=== PATIENT | male | born 1940 | race Hispanic/Latino ===

== ENCOUNTER 2018-09-12 10:45 | Inpatient (IN) | payer MEDICARE ==
[2018-09-12 11:11] VITALS: BMI 22.9
--- NOTE | 2018-09-12 12:08 | ED PDOC ---
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 Rodriguez and Dr. Ashley for possible admission for worsening dyspnea on exertion and port placement today. Patient informs onset of intermittent productive cough associated with shortness of breath since few days. Patient informs worsening symptoms with generalized weakness. Patient informs compliance with appropriate diet and denies any other associated somatic complaints. Patient denies any fevers, chills, headache, dizziness, chest pain, abdominal pain, nausea, vomiting, diarrhea, back pain, neck pain, or any other complaints. Patient is not on any chemotherapy currently. Patient informs officially being made aware of cancer today. PMD: Dr. Ashley Hematology: Dr. Rodriguez Environmental Consultant: Dr. Todd Time/Duration: < week Symptom Onset: Gradual Symptom Course: Unchanged Activities at Onset: Light Context: Other (Referred by Dr. Rodriguez and Dr. Ashley) Past Medical History - Provider Review Nursing Documentation Reviewed: Yes - Infectious Disease Hx of Infectious Diseases: None - Tetanus Immunization Tetanus Immunization: Unknown - Cardiac Hx Pacemaker: No - Pulmonary Hx Respiratory Disorders: No - Neurological Hx Neurological Disorder: No Hx Paralysis: No - HEENT Hx HEENT Disorder: No Hx Blind: No - Renal Hx Renal Disorder: No - Endocrine/Metabolic Hx Diabetes Mellitus Type 2: Yes - Hematological/Oncological Hx Blood Disorders: No Hx Blood Transfusions: No Hx Blood Transfusion Reaction: No - Integumentary Hx Dermatological Disorder: No - Musculoskeletal/Rheumatological Hx Falls: No - Gastrointestinal Hx Gastrointestinal Disorders: No - Genitourinary/Gynecological Hx Genitourinary Disorders: Yes (NEUROGENIC BLADDER,UROSEPSIS,CHRONIC URINARY RETENTION,BPH) Hx Reproductive Disorders: Yes (BPH) - Psychiatric Hx Psychophysiologic Disorder: No Hx Depression: No Hx Emotional Abuse: No Hx Physical Abuse: No Hx Substance Use: No - Surgical History Other/Comment: carotid endarterectomy - Anesthesia Hx Anesthesia: Yes Hx Anesthesia Reactions: No Hx Malignant Hyperthermia: No - Suicidal Assessment Feels Threatened In Home Enviroment: No Family/Social History - Physician Review Nursing Documentation Reviewed: Yes Family/Social History: Unknown Family HX Smoking Status: Former Smoker Hx Alcohol Use: Yes Hx Substance Use: No Hx Substance Use Treatment: No Allergies/Home Meds Allergies/Adverse Reactions: Allergies No Known Allergies Allergy (Verified 09/12/18 17:58) Review of Systems - Physician Review All systems were reviewed & negative as marked: Yes - Review of Systems Constitutional: absent: Fevers Respiratory: SOB, Cough Cardiovascular: CUEVA. absent: Chest Pain Gastrointestinal: absent: Abdominal Pain, Diarrhea, Nausea, Vomiting Genitourinary Male: absent: Dysuria, Urinary Output Changes Musculoskeletal: absent: Back Pain, Neck Pain Skin: absent: Rash Neurological: absent: Headache, Dizziness Physical Exam Vital Signs Reviewed: Yes Vital Signs Temp Pulse Resp BP Pulse Ox 09/12/18 11:20 97.9 F 99 H 20 154/92 H 100 09/12/18 11:11 97.7 F 100 H 16 154/92 H 99 Temperature: Afebrile Blood Pressure: Hypertensive Pulse: Regular Respiratory Rate: Normal Appearance: Positive for: Well-Appearing, Non-Toxic, Comfortable Pain Distress: None Mental Status: Positive for: Alert and Oriented X 3 - Systems Exam Head: Present: Atraumatic, Normocephalic Pupils: Present: PERRL Extroacular Muscles: Present: EOMI Conjunctiva: Present: Normal Mouth: Present: Dry Respiratory/Chest: Present: Good Air Exchange, Rales (in all lung hough bilaterally). No: Respiratory Distress, Accessory Muscle Use Cardiovascular: Present: Regular Rate and Rhythm, Normal S1, S2. No: Murmurs Abdomen: No: Tenderness, Distention, Peritoneal Signs Upper Extremity: Present: Normal Inspection. No: Cyanosis, Edema Lower Extremity: Present: Normal Inspection. No: Edema Neurological: Present: GCS=15, CN II-XII Intact, Speech Normal Skin: Present: Warm, Dry, Normal Color. No: Rashes Psychiatric: Present: Alert, Oriented x 3, Normal Insight, Normal Concentration Medical Decision Making ED Course and Treatment: 09/12/18 11:39 Impression: 77 year old male presents to the Emergency department for evaluation of cough and worsening dyspnea on exertion. Plan: -- VBG -- CT of Chest -- Labs -- Blood Culture -- EK -- Reassess and disposition Prior Visits: Notes and results from previous visits were reviewed. Progress Notes: 09/12/18 11:39 EKG: Ordered, reviewed, and independently interpreted the EKG. Rate : 104 BPM Rhythm : Sinus Tachycardia Interpretation : Normal interval, normal axis, no ST elevation, no acute ischemic changes. 09/12/18 13:38 Discussed case with hospitalist, Dr. Rainey, who is aware and agrees with Emergency department management plan, accepts patient under his service. 09/12/18 13:40 Family made aware of results and offered admission. Family and patient aware and agree with admission. - RAD Interpretation Radiology Orders: 09/12/18 11:39 CHEST W/O CONTRAST [CT] Stat - Scribe Statement The provider has reviewed the documentation as recorded by the Scribe Sara Munoz. All medical record entries made by the Scribe were at my direction and personally dictated by me. I have reviewed the chart and agree that the record accurately reflects my personal performance of the history, physical exam, medical decision making, and the department course for this patient. I have also personally directed, reviewed, and agree with the discharge instructions and disposition. Disposition/Present on Arrival - Present on Arrival Any Indicators Present on Arrival: No History of DVT/PE: No History of Uncontrolled Diabetes: No Urinary Catheter: No History of Decub. Ulcer: No History Surgical Site Infection Following: None - Disposition Have Diagnosis and Disposition been Completed?: Yes Diagnosis: Pleural effusion, Lung cancer metastatic to bone, Dyspnea, Thrombocytopenia, De hydration Disposition: HOSPITALIZED Disposition Time: 11:38 Patient Plan: Admission Condition: STABLE
[2018-09-12 12:29] LABS: VENOUS BLOOD PH 7.39 (7.32-7.43)
[2018-09-12 12:30] LABS: VENOUS BLOOD FIO2 21 %; VENOUS BLOOD GAS BASE EXCESS 0.2 mmol/L (0.0-2.0); VENOUS BLOOD GAS PO2 52 mm/Hg (30-55)
[2018-09-12 12:38] LABS: HEMOGLOBIN 14.9 g/dL (14.0-18.0); MEAN CELL VOLUME 91.5 fl (80.0-105.0); MEAN CORPUSCULAR HEMOGLOBIN 30.7 pg (25.0-35.0); MEAN CORPUSCULAR HGB CONC 33.6 g/dl (31.0-37.0); MEAN PLATELET VOLUME 10.3 fl (7.0-11.0); PLATELET COUNT 108 10^3/uL (120.0-450.0); RBC 4.85 10^6/uL (3.5-6.1); WHITE BLOOD COUNT 7.2 10^3/uL (4.5-11.0)
[2018-09-12 12:39] LABS: EOS % 0.1 % (1.5-5.0); GRAN # 6.49 (1.4-6.5); GRAN % 90.8 % (50.0-68.0); LYMPH # 0.3 (1.2-3.4); LYMPH % 4.2 % (22.0-35.0); MONO # 0.4 (0.1-0.6); MONO % 4.9 % (1.0-6.0)
[2018-09-12 12:56] LABS: BAND 1 % (0-2); LYMPHOCYTE 8 % (22.0-35.0); MONOCYTE 4 % (1.0-6.0); NEUTROPHIL 87 % (50.0-70.0)
[2018-09-12 12:57] LABS: PLATELET ESTIMATE LOW (NORMAL)
[2018-09-12 13:21] LABS: B-TYPE NATRIURETIC PEPTIDE 1010 pg/mL (0-450); BLOOD UREA NITROGEN 36 mg/dL (7-21); CALCIUM 9.2 mg/dL (8.4-10.5); GFR NON-AFRICAN AMERICAN > 60; TROPONIN I 0.02 ng/mL
--- NOTE | 2018-09-12 13:24 | CT ---
Date of service: 09/12/2018 PROCEDURE: CT Chest without contrast HISTORY: sob COMPARISON: None available. TECHNIQUE: Contiguous axial images were obtained through the chest without intravenous contrast enhancement. Sagittal and coronal reconstructions were performed. Radiation dose: Total exam DLP = 299.53 mGy-cm. This CT exam was performed using one or more of the following dose reduction techniques: Automated exposure control, adjustment of the mA and/or kV according to patient size, and/or use of iterative reconstruction technique. FINDINGS: LUNGS: There is an irregular spiculated mass or scar in the left lung apex measuring 2 x 3.5 cm. There are no prior CT scans for comparison. There is no abnormality in this region on a previous chest film from 03/22/2016. Further evaluation is recommended to rule out a lung malignancy. MEDIASTINUM: Unremarkable thoracic aorta. No aneurysm. Normal sized heart. Main pulmonary artery unremarkable. No vascular congestion. No lymphadenopathy. Aortic and coronary artery calcifications are seen. PLEURA: There is a small to moderate size left pleural effusion with a loculated appearance. There is a small pericardial effusion measuring 9 mm in thickness. BONES: There is a mild acute appearing compression fracture of the inferior endplate of T11 with some bony sclerosis. A metastatic lesion cannot be excluded. A Schmorl's node is seen in the superior endplate of L1. UPPER ABDOMEN: Grossly unremarkable. OTHER FINDINGS: None. IMPRESSION: There is an irregular spiculated mass or scar in the left lung apex measuring 2 x 3.5 cm. There are no prior CT scans for comparison. There is no abnormality in this region on a previous chest film from 03/22/2016. Further evaluation is recommended to rule out a lung malignancy.
[2018-09-12] MEDS ORDERED: Albuterol-Ipratrop 3 mg / 0.5 (3 ml) UD IH PRN (14:26)
--- NOTE | 2018-09-12 14:36 | CP.PCM.HP ---
History of Present Illness - History of Present Illness History of Present Illness: PGY1 Medicine History and Physical Exam Note for Dr. 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 Rodriguez and Dr. Ashley for worsening dyspnea on exertion. Patient informs onset of intermittent productive cough associated with shortness of breath since few days. Patient says it has been difficult for him to speak, however he is able to eat. Patient denies any pain to his back, limbs and/or head at this time. Patient denies any fevers, chills, headache, dizziness, chest pain, abdominal pain, nausea, vomiting, and/or diarrhea. Patient states he received his diagnosis of Lung CA about a week ago, which was confirmed with biopsy. Patient currently unaware of treatment plan, however Per Patient, his PMD recommends that he also gets a port placed. PMH: Lung CA with mets to lumbar spine, ribs, hips, History of diabetes (controlled without medications), PSH: left wrist repair with titanium alisson Social History: Heavy smoker > 25 pack year Allergies: NKDA PMD: Dr. Ashley Hematology: Dr. Rodriguez Streetcar Starter: Dr. Todd Present on Admission - Present on Admission Any Indicators Present on Admission: No History of DVT/PE: No History of Uncontrolled Diabetes: No Urinary Catheter: No Decubitus Ulcer Present: No History Surgical Site Infection Following: None Review of Systems - Review of Systems All systems: reviewed and no additional remarkable complaints except Review of Systems: ROS negative other than mentioned in HPI Past Patient History - Infectious Disease Hx of Infectious Diseases: None - Tetanus Immunizations Tetanus Immunization: Unknown - Past Social History Smoking Status: Former Smoker - CARDIAC Hx Pacemaker: No - PULMONARY Hx Respiratory Disorders: No - NEUROLOGICAL Hx Neurological Disorder: No Hx Paralysis: No - HEENT Hx HEENT Problems: No Hx Blind: No - RENAL Hx Chronic Kidney Disease: No - ENDOCRINE/METABOLIC Hx Diabetes Mellitus Type 2: Yes - HEMATOLOGICAL/ONCOLOGICAL Hx Blood Disorders: No Hx Blood Transfusions: No Hx Blood Transfusion Reaction: No - INTEGUMENTARY Hx Dermatological Problems: No - MUSCULOSKELETAL/RHEUMATOLOGICAL Hx Falls: No - GASTROINTESTINAL Hx Gastrointestinal Disorders: No - GENITOURINARY/GYNECOLOGICAL Hx Genitourinary Disorders: Yes (NEUROGENIC BLADDER,UROSEPSIS,CHRONIC URINARY RETENTION,BPH) Hx Reproductive Disorders: Yes (BPH) - PSYCHIATRIC Hx Psychophysiologic Disorder: No Hx Depression: No Hx Emotional Abuse: No Hx Physical Abuse: No Hx Substance Use: No - SURGICAL HISTORY Other/Comment: carotid endarterectomy - ANESTHESIA Hx Anesthesia: Yes Hx Anesthesia Reactions: No Hx Malignant Hyperthermia: No Meds Allergies/Adverse Reactions: Allergies Allergy/AdvReac Type Severity Reaction Status Date / Time No Known Allergies Allergy Verified 09/12/18 15:46 Physical Exam - Constitutional Appears: Non-toxic, No Acute Distress, Cachectic - Head Exam Head Exam: ATRAUMATIC, NORMAL INSPECTION, NORMOCEPHALIC - Eye Exam Eye Exam: EOMI, Normal appearance, PERRL Pupil Exam: NORMAL ACCOMODATION - ENT Exam ENT Exam: Mucous Membranes Moist, Normal Exam - Neck Exam Neck exam: Negative for: Lymphadenopathy, Thyromegaly Additional comments: Patient's left carotid is prominent on inspection - Respiratory Exam Respiratory Exam: Rales, Rhonchi. absent: Accessory Muscle Use, Wheezes, Respiratory Distress - Cardiovascular Exam Cardiovascular Exam: Tachycardia, REGULAR RHYTHM - GI/Abdominal Exam GI & Abdominal Exam: Normal Bowel Sounds, Soft. absent: Distended, Firm, Guarding, Mass, Tenderness - Extremities Exam Extremities exam: Positive for: full ROM, normal inspection. Negative for: calf tenderness, joint swelling, pedal edema, tenderness - Back Exam Back exam: NORMAL INSPECTION. absent: rash noted, tenderness - Neurological Exam Neurological exam: Alert, CN II-XII Intact, Oriented x3 - Psychiatric Exam Psychiatric exam: Normal Affect, Normal Mood - Skin Skin Exam: Dry, Intact, Normal Color, Warm Results - Vital Signs Recent Vital Signs: Last Vital Signs Temp 98 F 09/12/18 13:09 Pulse 99 H 09/12/18 13:09 Resp 18 09/12/18 13:09 BP 128/76 09/12/18 13:09 Pulse Ox 100 09/12/18 13:09 - Labs Result Diagrams: 09/12/18 12:00 09/12/18 12:00 Labs: Laboratory Results - last 24 hr 09/12/18 09/12/18 09/12/18 12:00 12:00 12:00 WBC 7.2 RBC 4.85 Hgb 14.9 Hct 44.4 MCV 91.5 MCH 30.7 MCHC 33.6 RDW 15.0 H Plt Count 108 L MPV 10.3 Gran % 90.8 H Lymph % (Auto) 4.2 L Pratt % (Auto) 4.9 Eos % (Auto) 0.1 L Baso % (Auto) 0.0 Gran # 6.49 Lymph # (Auto) 0.3 L Pratt # (Auto) 0.4 Eos # (Auto) 0.0 Baso # (Auto) 0.00 Neutrophils % (Manual) 87 H Band Neutrophils % 1 Lymphocytes % (Manual) 8 L Monocytes % (Manual) 4 Platelet Evaluation Low pO2 52 VBG pH 7.39 VBG pCO2 42.0 VBG HCO3 25.4 VBG Total CO2 26.7 VBG O2 Sat (Calc) 89.3 H VBG Base Excess 0.2 VBG Potassium 4.0 Sodium 138.0 140 Chloride 103.0 107 Glucose 139 H Lactate 2.7 H FiO2 21 Potassium 4.2 Carbon Dioxide 26 Anion Gap 11 BUN 36 H Creatinine 0.8 Est GFR ( Amer) > 60 Est GFR (Non-Af Amer) > 60 Random Glucose 138 H Calcium 9.2 Magnesium 2.1 Lactate Dehydrogenase 651 Total Creatine Kinase 34 L Troponin I 0.02 D NT-Pro-B Natriuret Pep 1010 H Venous Blood Potassium 4.0 Assessment & Plan - Assessment and Plan (Free Text) Assessment: 77 year old male with PMH significant for recently diagnosed lung CA with metastasis to the lumbar spine, presents to the Emergency department for evaluation of cough and worsening dyspnea on exertion. History of Lung CA with Metastases to Lumbar Spine, Hip, and Ribs - Dr. Rodriguez (Patient's Chief Hydroelectric Station Operator-Oncologist consulted); recommendations appreciated - Patient s/p Biopsy as an out-patient - Continue home medications: Lyrica, Percocet, Decadron - Dr. Escoto (IR) consulted for placement of port; recommendations appreciated Cough likely secondary to Pleural Effusion likely secondary to CAP vs COPD exacerbation - Azithromycin IVPB started daily - Rocephin IVPB started daily - Follow-up Blood cultures - CT Chest without contrast obtained 09/12/18 * There is an irregular spiculated mass or scar in the left lung apex measuring 2x3.5cm. There is no prior CT scan for comparison. There is no abnormalities in this region on a previous chest film from 03/22/2016; per official report. * There is a qmcod-rt-gsvaopqz size left pleural effusion with a loculated appearance. See official report * There is a small pericardial effusion measuring 9mm in thickness. See official report - Dr. Escoto (IR) consulted for chest tube placement; recommendations appreciated - Urine culture obtained - VBG revealed elevated lactic acid=2.7 - No leukocytosis - Afebrile - Gentle hydration: NS @ 75cc/hr - Start: mucinex LA - Start: mucomyst - Start: duonebs Q4H, and duonebs PRN Elevated BNP; rule-out CHF - BNP > 1000 - ECHO ordered - EKG: sinus tachycardia - CT Chest without contrast obtained 09/12/18 * There is an irregular spiculated mass or scar in the left lung apex measuring 2x3.5cm. There is no prior CT scan for comparison. There is no abnormalities in this region on a previous chest film from 03/22/2016; per official report. * There is a bpqix-jq-[id number] size left pleural effusion with a loculated appearance. See official report * There is a small pericardial effusion measuring 9mm in thickness. See official report PPx: - GI: pepcid - DVT: SCD (anticoagulation held due to possible procedure tomorrow morning) Patient seen and case discussed in detail with Dr. Brigid Irizarry PGY1
[2018-09-12] MEDS ORDERED: Sodium Chloride 0.9% 1,000 ML IV SCH (16:30)
[2018-09-12] MEDS: Albuterol-Ipratrop 3 mg / 0.5 (3 ml) UD IH SCH ×2 (16:31→20:58)
[2018-09-12] MEDS: cefTRIAXone 1 gm 1 GM/100 ML BAG IVPB SCH (16:39)
[2018-09-12 16:40] LABS: VENOUS BLOOD GAS BASE EXCESS 2.5 mmol/L (0.0-2.0); VENOUS BLOOD GAS PO2 54 mm/Hg (30-55)
[2018-09-12] MEDS: Azithromycin 500MG/NS 250ml 500 MG/250 ML BAG IVPB SCH (17:23)
[2018-09-12 17:32] LABS: URINE BILIRUBIN NEGATIVE (NEGATIVE); URINE BLOOD TRACE-INTACT (NEGATIVE); URINE GLUCOSE (UA) NEGATIVE (NEGATIVE); URINE LEUKOCYTE ESTERASE SMALL Leu/uL (NEGATIVE); URINE PROTEIN TRACE mg/dL (<30 mg/dL)
[2018-09-12 17:33] LABS: URINE APPEARANCE SL CLOUDY (CLEAR); URINE COLOR YELLOW (YELLOW)
[2018-09-12 17:37] LABS: URINE BACTERIA MOD (NEG); URINE RBC 0 - 2 /hpf (0-2)
[2018-09-12] MEDS: Acetylcysteine 20% Inhal Soln (4ml) IH SCH (17:51)
[2018-09-12] MEDS ORDERED: Pneumococcal 23-Valent Vaccine IM ONE (18:42)
[2018-09-12] MEDS ORDERED: Influenza Vaccine 60 mcg/0.5 mL SYR (4YR UP) IM ONE (18:42)
--- NOTE | 2018-09-12 18:45 | CARD ---
APPROVED REPORT Date of service: 09/12/2018 EKG Measurement Heart [id number] <Conclusion> Sinus tachycardia Septal infarct, age undetermined Abnormal ECG
[2018-09-12] MEDS: Oxycodone/Acetaminophen 5/325 mg Tab PO PRN (18:54)
[2018-09-12] MEDS: guaiFENesin 600 mg ER Tab PO SCH (18:54)
[2018-09-12] MEDS ORDERED: Albuterol-Ipratrop 3 mg / 0.5 (3 ml) UD IH SCH (20:00)
[2018-09-13] MEDS: Albuterol-Ipratrop 3 mg / 0.5 (3 ml) UD IH SCH ×6 (00:57→23:29)
[2018-09-13 06:26] LABS: GRAN # 4.75 (1.4-6.5); HEMOGLOBIN 13.8 g/dL (14.0-18.0); LYMPH # 0.2 (1.2-3.4); LYMPH % 4.3 % (22.0-35.0); MEAN CELL VOLUME 91.8 fl (80.0-105.0); MEAN CORPUSCULAR HEMOGLOBIN 30.6 pg (25.0-35.0); MEAN CORPUSCULAR HGB CONC 33.3 g/dl (31.0-37.0); MEAN PLATELET VOLUME 10.1 fl (7.0-11.0); MONO # 0.4 (0.1-0.6); MONO % 6.7 % (1.0-6.0); RBC 4.51 10^6/uL (3.5-6.1); RED CELL DISTRIBUTION WIDTH 14.6 % (11.5-14.5); WHITE BLOOD COUNT 5.3 10^3/uL (4.5-11.0)
[2018-09-13 06:35] LABS: INR 1.03; PROTHROMBIN TIME 11.9 SECONDS (9.4-12.5)
[2018-09-13 07:14] LABS: ALB/GLOB RATIO 1.1 (1.1-1.8); ALBUMIN 3.2 g/dL (3.0-4.8); ALT/SGPT 28 U/L (7-56); AST/SGOT 22 U/L (17-59); BLOOD UREA NITROGEN 27 mg/dL (7-21); CALCIUM 8.7 mg/dL (8.4-10.5); GFR NON-AFRICAN AMERICAN > 60
[2018-09-13] MEDS ORDERED: Lidocaine 2% Inj (20ml) ONE (07:25)
[2018-09-13] MEDS: Acetylcysteine 20% Inhal Soln (4ml) IH SCH ×3 (07:50→20:29)
--- NOTE | 2018-09-13 08:43 | PN ---
DATE: 09/12/2018 I reviewed the patient's chest CT. This demonstrates a left apical mass consistent with the patient's history for lung CA. There is linear extension toward the hilum. There is a small loculated-appearing left pleural effusion inferiorly and posteriorly. It is not enough to warrant therapeutic thoracentesis or tunneled catheter placement. I was made aware in the progress note that the patient should have a port placed. He will be scheduled on this admission Rc Escoto, MDDD: 09/12/2018 17:28:22 [email or web address]
[2018-09-13] MEDS ORDERED: Midazolam 2 MG/2 ML VIAL ONE ×2 (09:20→09:25)
[2018-09-13] MEDS ORDERED: DiphenhydrAMINE 50 mg/ml Inj ONE (09:26)
[2018-09-13] MEDS ORDERED: Flumazenil 0.1 mg/ml Inj (5ml) IVP ONE (09:40)
[2018-09-13] MEDS ORDERED: Sodium Chloride 0.45% 1,000 ML IV SCH (10:15)
[2018-09-13] MEDS: guaiFENesin 600 mg ER Tab PO SCH ×2 (11:20→19:41)
[2018-09-13] MEDS: Azithromycin 500MG/NS 250ml 500 MG/250 ML BAG IVPB SCH (11:25)
[2018-09-13] MEDS: cefTRIAXone 1 gm 1 GM/100 ML BAG IVPB SCH (12:59)
--- NOTE | 2018-09-13 15:43 | CP.PCM.PN ---
Subjective - Date & Time of Evaluation Date of Evaluation: 09/13/18 Time of Evaluation: 15:40 - Subjective Subjective: PGY1 Medicine Progress Note for Dr. Rainey Patient seen and evaluated at bedside this morning. No acute events overnight. Patient resting s/p Port placement with Dr. Escoto. Patient otherwise without complaints. 12 point ROS otherwise negative. Objective - Vital Signs/Intake and Output Vital Signs (last 24 hours): Temp Pulse Resp BP Pulse Ox 98.7 F 93 H 18 166/80 H 96 09/13/18 11:59 09/13/18 11:59 09/13/18 11:59 09/13/18 11:59 09/13/18 10:45 Intake and Output: 09/13/18 09/13/18 06:59 18:59 Intake Total 400 Balance 400 - Medications Medications: Current Medications Acetaminophen (Tylenol 325mg Tab) 650 mg PO Q4 PRN PRN Reason: Pain, Mild (1-3) Acetylcysteine (Acetylcysteine 20%) 3 ml IH BID [facility] Last Admin: 09/13/18 07:51 Dose: 3 ml Albuterol/Ipratropium (Duoneb 3 Mg/0.5 Mg (3 Ml) Ud) 3 ml IH Q2H PRN PRN Reason: Shortness of Breath Albuterol/Ipratropium (Duoneb 3 Mg/0.5 Mg (3 Ml) Ud) 3 ml IH [id number] [facility] Last Admin: 09/13/18 11:49 Dose: 3 ml Dexamethasone (Decadron) 4 mg PO QID [facility] Last Admin: 09/13/18 11:19 Dose: Not Given Enoxaparin Sodium (Lovenox) 30 mg SC DAILY [facility]; Protocol Famotidine (Pepcid) 40 mg PO HS [facility] Last Admin: 09/12/18 21:38 Dose: 40 mg Guaifenesin (Mucinex La) 600 mg PO BID [facility] Last Admin: 09/13/18 11:20 Dose: Not Given Ceftriaxone Sodium (Rocephin 1 Gram Ivpb) 1 gm in 100 mls @ 100 mls/hr IVPB DAILY [facility]; Protocol Last Admin: 09/13/18 12:59 Dose: 100 mls/hr Azithromycin (Zithromax 500mg In Ns) 500 mg in 250 mls @ 167 mls/hr IVPB DAILY [facility]; Protocol Last Admin: 09/13/18 11:25 Dose: 167 mls/hr Sodium Chloride (Sodium Chloride 0.9%) 1,000 mls @ 75 mls/hr IV .[id number] [facility] Stop: 09/13/18 16:31 Last Admin: 09/12/18 16:31 Dose: 75 mls/hr Ondansetron HCl (Zofran Inj) 4 mg IVP Q6H PRN PRN Reason: Nausea/Vomiting Oxycodone/Acetaminophen (Percocet 5/325 Mg Tab) 1 tab PO BID PRN PRN Reason: Pain, severe (8-10) Stop: 09/15/18 18:01 Last Admin: 09/12/18 18:54 Dose: 1 tab Pregabalin (Lyrica) 50 mg PO TID [facility] Last Admin: 09/13/18 11:20 Dose: Not Given - Labs Labs: 09/13/18 06:00 09/13/18 06:00 PT 11.9 SECONDS (9.4-12.5) 09/13/18 06:00 INR 1.03 09/13/18 06:00 - Additional Findings Additional findings: - Constitutional Appears: Non-toxic, No Acute Distress, Cachectic - Head Exam Head Exam: ATRAUMATIC, NORMAL INSPECTION, NORMOCEPHALIC - Eye Exam Eye Exam: EOMI, Normal appearance, PERRL Pupil Exam: NORMAL ACCOMODATION - ENT Exam ENT Exam: Mucous Membranes Moist, Normal Exam - Neck Exam Neck exam: Negative for: Lymphadenopathy, Thyromegaly Additional comments: Patient's left carotid is prominent on inspection - Respiratory Exam Respiratory Exam: Rales, Rhonchi. absent: Accessory Muscle Use, Wheezes, Respiratory Distress - Cardiovascular Exam Cardiovascular Exam: Tachycardia, REGULAR RHYTHM - GI/Abdominal Exam GI & Abdominal Exam: Normal Bowel Sounds, Soft. absent: Distended, Firm, Guarding, Mass, Tenderness - Extremities Exam Extremities exam: Positive for: full ROM, normal inspection. Negative for: calf tenderness, joint swelling, pedal edema, tenderness - Back Exam Back exam: NORMAL INSPECTION. absent: rash noted, tenderness - Neurological Exam Neurological exam: Alert, CN II-XII Intact, Oriented x3 - Psychiatric Exam Psychiatric exam: Normal Affect, Normal Mood - Skin Skin Exam: Dry, Intact, Normal Color, Warm Assessment and Plan - Assessment and Plan (Free Text) Assessment: 77 year old male with PMH significant for recently diagnosed lung CA with metast asis to the lumbar spine, presents to the Emergency department for evaluation of cough and worsening dyspnea on exertion. S/P Port placement by Dr. Escoto (IR) 09/13/18. Patient tolerated procedure well. History of Lung CA with Metastases to Lumbar Spine, Hip, and Ribs - Dr. Rodriguez (Patient's Mixed Livestock Farmer-Oncologist consulted); recommendations appreciated - Patient s/p Biopsy as an out-patient - Continue home medications: Lyrica, Percocet, Decadron - Dr. Escoto (IR) consulted for placement of port; recommendations appreciated - Patient s/p Port placement 09/13 Cough likely secondary to Pleural Effusion likely secondary to CAP vs COPD exacerbation - Azithromycin IVPB started daily - Rocephin IVPB started daily - Follow-up Blood cultures - CT Chest without contrast obtained 09/12/18 * There is an irregular spiculated mass or scar in the left lung apex measuring 2x3.5cm. There is no prior CT scan for comparison. There is no abnormalities in this region on a previous chest film from 03/22/2016; per official report. * There is a kiyln-gz-ydnlxtko size left pleural effusion with a loculated appearance. See official report * There is a small pericardial effusion measuring 9mm in thickness. See official report - Dr. Escoto (IR) consulted for chest tube placement; no chest tube placement warranted at this time - Urine culture obtained - VBG revealed elevated lactic acid=2.7 - No leukocytosis - Afebrile - Gentle hydration: NS @ 75cc/hr - Start: mucinex LA - Start: mucomyst - Start: duonebs Q4H, and duonebs PRN Elevated BNP; rule-out CHF - BNP > 1000 - ECHO ordered - EKG: sinus tachycardia - CT Chest without contrast obtained 09/12/18 * There is an irregular spiculated mass or scar in the left lung apex measuring 2x3.5cm. There is no prior CT scan for comparison. There is no abnormalities in this region on a previous chest film from 03/22/2016; per official report. * There is a blkmk-yj-mftzhcqu size left pleural effusion with a loculated appearance. See official report * There is a small pericardial effusion measuring 9mm in thickness. See official report PPx: - GI: pepcid - DVT: SCD (anticoagulation held due to possible procedure tomorrow morning) Patient seen and case discussed in detail with Dr. Brigid Irizarry PGY1
[2018-09-13] MEDS: Enoxaparin 30 mg Syringe SC SCH (17:23)
--- NOTE | 2018-09-13 18:45 | VASCULAR ---
PROCEDURE: Ultrasound and fluoroscopic right internal jugular venous access port. CLINICAL HISTORY: Lung carcinoma.Venous port for chemotherapy. PHYSICIAN(S): Rc Escoto M.D. TECHNIQUE: The relative risks and indications of the procedure were explained to the patient and consent obtained. The patient was placed supine on the arteriogram table and the right neck and chest prepped and draped in the usual sterile fashion. Conscious sedation monitoring was provided throughout the procedure by a nurse. Antibiotics were given prior to the procedure. Under direct ultrasound guidance, the right internal jugular vein was punctured with a micro-puncture set. A 0.035 angled Glidewire was advanced into the IVC. A 4 cm incision was made at the venous access site and the pocket blunted dissected. A 8 [place] single-lumen catheter, 25 cm long, was advanced to the SVC/RA junction. The catheter was trimmed and attached to the port. The port aspirates and injects easily. The port was placed in the pocket and closed in 2 layers. The patient tolerated the procedure well. IMPRESSION: Ultrasound and fluoroscopically placed right internal jugular venous access port.
--- NOTE | 2018-09-13 18:47 | CARD ---
APPROVED REPORT Date of service: 09/13/2018 EXAM: Two-dimensional and M-mode echocardiogram with Doppler and color Doppler. INDICATION PLEURAL EFFUSION 2D DIMENSIONS Left Atrium (2D)2.9 (1.6-4.0cm)IVSd1.6 (0.7-1.1cm) LVDd3.0 (3.9-5.9cm)LVOT Diameter1.8 (1.8-2.4cm) PWd1.4 (0.7-1.1cm)LVDs2.1 (2.5-4.0cm) FS (%) 32.6 %LVEF (%)62.4 (>50%) M-Mode DIMENSIONS Aortic Root1.30 (2.2-3.7cm)Aortic Cusp Exc.0.60 (1.5-2.0cm) Aortic Valve AoV Peak Tejguomr867.0cm/sAoV VTI53.8cmAO Peak GR.39mmHg LVOT Peak Ucunxjai65.7cm/sLVOT VTI20.90cmAO Mean GR.15mmHg JAYRO (VMAX)0.89af2QIE (VTI)0.99cm2 Mitral Valve MV E Ecvwubwz24.8cm/sMV A Gpkjrciq065.0cm/sE/A ratio0.6 TDI E/Lateral E'0.0E/Medial E'0.0 Tricuspid Valve TR Peak Zmdfmeby404lj/sRAP WCEYKLIR81yyKoVL Peak Gr.8mmHg [id number] LEFT VENTRICLE The left ventricle is normal size. There is moderate concentric left ventricular hypertrophy. The left ventricular function is normal.EF-60-65% There is normal LV segmental wall motion. Transmitral Doppler flow pattern is Grade III-reversible restrictive diastolic dysfunction. No left ventricle thrombus noted on this study. There is no ventricular septal defect visualized. There is no left ventricular aneurysm. There is no left ventricular aneurysm. There is no mass noted in the left ventricle. RIGHT VENTRICLE The right ventricle is normal size. There is normal right ventricular wall thickness. The right ventricular systolic function is normal. ATRIA The left atrium size is normal. The right atrium size is normal. The interatrial septum is intact with no evidence for an atrial septal defect. AORTIC VALVE The aortic valve is calcified and displays decreased opening. The aortic valve is not well visualized. There is trace aortic regurgitation. Popssible moderate to severe valvular aortic stenosis. There is no aortic valvular vegetation. MITRAL VALVE The mitral valve is thickened but opens well. Mitral regurgitation is trace. There is no mitral valve stenosis. There is no evidence of mitral valve prolapse. TRICUSPID VALVE The tricuspid valve leaflets are thickened , but open well. There is trace tricuspid regurgitation.RVSP-18 mmof Hg. There is no tricuspid valve stenosis. There is no tricuspid valve prolapse or vegetation. PULMONIC VALVE The pulmonic valve is not well visualized. There is no pulmonic valvular regurgitation. There is no pulmonic valvular stenosis. GREAT VESSELS The aortic root is normal in size. The ascending aorta is normal in size. The pulmonary artery is normal. The IVC was not visualized. PERICARDIAL EFFUSION There is small left pleural effusion. There is a trace pericardial effusion. <Conclusion> Normal chamber size. EF-60-65% There is trace aortic regurgitation. Popssible moderate to severe valvular aortic stenosis. Mitral regurgitation is trace. There is trace tricuspid regurgitation.RVSP-18 mmof Hg. The IVC was not visualized. There is a trace pericardial effusion. There is small left pleural effusion.
[2018-09-13] MEDS: Oxycodone/Acetaminophen 5/325 mg Tab PO PRN (20:51)
[2018-09-14] MEDS: Albuterol-Ipratrop 3 mg / 0.5 (3 ml) UD IH SCH ×6 (03:10→23:42)
[2018-09-14 06:40] LABS: EOS % 0.2 % (1.5-5.0); GRAN # 5.89 (1.4-6.5); GRAN % 91.9 % (50.0-68.0); HEMOGLOBIN 13.4 g/dL (14.0-18.0); LYMPH # 0.2 (1.2-3.4); LYMPH % 3.8 % (22.0-35.0); MEAN CELL VOLUME 91.7 fl (80.0-105.0); MEAN CORPUSCULAR HGB CONC 32.8 g/dl (31.0-37.0); MEAN PLATELET VOLUME 10.4 fl (7.0-11.0); MONO # 0.3 (0.1-0.6); MONO % 4.1 % (1.0-6.0); RBC 4.46 10^6/uL (3.5-6.1); RED CELL DISTRIBUTION WIDTH 14.8 % (11.5-14.5); WHITE BLOOD COUNT 6.4 10^3/uL (4.5-11.0)
[2018-09-14] MEDS: Acetylcysteine 20% Inhal Soln (4ml) IH SCH ×2 (07:32→19:39)
[2018-09-14 08:08] LABS: ALB/GLOB RATIO 1.1 (1.1-1.8); ALT/SGPT 33 U/L (7-56); AST/SGOT 22 U/L (17-59); BLOOD UREA NITROGEN 25 mg/dL (7-21); CALCIUM 8.8 mg/dL (8.4-10.5); GFR NON-AFRICAN AMERICAN > 60
[2018-09-14] MEDS: Enoxaparin 30 mg Syringe SC SCH (09:43)
[2018-09-14] MEDS: guaiFENesin 600 mg ER Tab PO SCH ×2 (09:44→18:01)
[2018-09-14] MEDS: cefTRIAXone 1 gm 1 GM/100 ML BAG IVPB SCH (09:45)
--- NOTE | 2018-09-14 11:01 | CP.PCM.CON ---
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 He denied fever, chills,chest/abdominal pain, nausea, vomiting, diarrhea,dizziness or other complaints. Chest CT: Irregular spiculated mass /scar left lung apex 2x 3.5 cm, mild acute appearing compression fracture in inferior endplate of T 11 with some sclerosis, metastasis can not be excluded,no other abnormalities found EKG: ST, septal infarct age undetermined ECHO: EF 60-65%, trace aortic/mitral and tricuspid regurgitation, trace pericardial effusion, left small pleural effusion. Labs: WNL with exception>BUN 36, body artist 0.8, glucose 138, BNP 1010, tropinin 0.02. Blood /urine cultures negative PMHx: HT, DM, BPH neurogenic bladder, UTI's PSHx: Port a Cath placement 09/13/18, carotid endarterectomy Social History: Smoker, social alcohol, no drug use. Lives with spouse Family History: Non contributory. Advance Car Planning: The patient does not have an Advanced Directive. Review of Systems: As per HPI, 12 point review negative Past Patient History - Infectious Disease Hx of Infectious Diseases: None - Tetanus Immunizations Tetanus Immunization: Unknown - Past Social History Smoking Status: Former Smoker - CARDIAC Hx Cardiac Disorders: Yes (CAROTID ENDARTERECTOMY) Hx Hypertension: Yes Hx Pacemaker: No - PULMONARY Hx Respiratory Disorders: Yes (SMOKED FOR 50 YRS.PPD.) - NEUROLOGICAL Hx Neurological Disorder: No - HEENT Hx HEENT Problems: No Hx Blind: No - RENAL Hx Chronic Kidney Disease: No - ENDOCRINE/METABOLIC Hx Endocrine Disorders: Yes Hx Diabetes Mellitus Type 2: Yes - HEMATOLOGICAL/ONCOLOGICAL Hx Blood Disorders: Yes Hx Cancer: Yes (LUNG CA WITH METS TO BONES 09-12-18) Hx Metastesis: Yes (BONES) - INTEGUMENTARY Hx Dermatological Problems: No - MUSCULOSKELETAL/RHEUMATOLOGICAL Hx Musculoskeletal Disorders: Yes Hx Falls: Yes Hx Unsteady Gait: Yes (WALKS WITH A LIMP,MUSCLE WASTING,WALKS WITH A WALKER /CANE.) - GASTROINTESTINAL Hx Gastrointestinal Disorders: Yes HX Swallowing Problems: Yes - GENITOURINARY/GYNECOLOGICAL Hx Genitourinary Disorders: Yes (NEUROGENIC BLADDER,UROSEPSIS,CHRONIC URINARY RETENTION,BPH) Hx Prostate Problems: Yes (PROSTATE OBSTRUCTION) Hx Urinary Tract Infection: Yes Other/Comment: CHRONIC URINARY RETENTION,RIGHT TESTICULAR SX. - PSYCHIATRIC Hx Psychophysiologic Disorder: No Hx Depression: No Hx Emotional Abuse: No Hx Physical Abuse: No Hx Substance Use: No - SURGICAL HISTORY Hx Surgeries: Yes (RIGHT TESTICULAR SX,) Other/Comment: carotid endarterectomy - ANESTHESIA Hx Anesthesia: Yes Hx Anesthesia Reactions: No Hx Malignant Hyperthermia: No Meds Allergies/Adverse Reactions: Allergies Allergy/AdvReac Type Severity Reaction Status Date / Time No Known Allergies Allergy Verified 09/12/18 17:58 - Medications Medications: Current Medications Acetaminophen (Tylenol 325mg Tab) 650 mg PO Q4 PRN PRN Reason: Pain, Mild (1-3) Acetylcysteine (Acetylcysteine 20%) 3 ml IH BID [facility] Last Admin: 09/14/18 07:32 Dose: 2 ml Albuterol/Ipratropium (Duoneb 3 Mg/0.5 Mg (3 Ml) Ud) 3 ml IH Q2H PRN PRN Reason: Shortness of Breath Albuterol/Ipratropium (Duoneb 3 Mg/0.5 Mg (3 Ml) Ud) 3 ml IH [id number] [facility] Last Admin: 09/14/18 07:32 Dose: 3 ml Dexamethasone (Decadron) 4 mg PO QID [facility] Last Admin: 09/14/18 09:44 Dose: 4 mg Enoxaparin Sodium (Lovenox) 30 mg SC DAILY [facility]; Protocol Last Admin: 09/14/18 09:43 Dose: 30 mg Famotidine (Pepcid) 40 mg PO HS [facility] Last Admin: 09/13/18 21:03 Dose: 40 mg Guaifenesin (Mucinex La) 600 mg PO BID [facility] Last Admin: 09/14/18 09:44 Dose: 600 mg Ceftriaxone Sodium (Rocephin 1 Gram Ivpb) 1 gm in 100 mls @ 100 mls/hr IVPB DAILY [facility]; Protocol Last Admin: 09/14/18 09:45 Dose: 100 mls/hr Azithromycin (Zithromax 500mg In Ns) 500 mg in 250 mls @ 167 mls/hr IVPB DAILY [facility]; Protocol Last Admin: 12/05/18 11:25 Dose: 167 mls/hr Nicotine (Nicoderm Cq) 1 patch TD DAILY [facility] Last Admin: 09/14/18 09:44 Dose: 1 patch Ondansetron HCl (Zofran Inj) 4 mg IVP Q6H PRN PRN Reason: Nausea/Vomiting Oxycodone/Acetaminophen (Percocet 5/325 Mg Tab) 1 tab PO BID PRN PRN Reason: Pain, severe (8-10) Stop: 09/15/18 18:01 Last Admin: 09/13/18 20:51 Dose: 1 tab Pregabalin (Lyrica) 50 mg PO TID [facility] Last Admin: 09/14/18 09:44 Dose: 50 mg Physical Exam - Constitutional Appears: Chronically Ill - Head Exam Head Exam: NORMOCEPHALIC - Eye Exam Eye Exam: Normal appearance, PERRL - ENT Exam ENT Exam: Normal Exam - Neck Exam Additional comments: no JVD, right neck dressing intact, no drainage - Respiratory Exam Respiratory Exam: Decreased Breath Sounds, Rhonchi - Cardiovascular Exam Cardiovascular Exam: REGULAR RHYTHM, +S1, +S2 - GI/Abdominal Exam GI & Abdominal Exam: Normal Bowel Sounds, Soft Additional comments: no tenderness or guarding - Extremities Exam Extremities exam: Positive for: pedal pulses present - Back Exam Back exam: NORMAL INSPECTION - Neurological Exam Neurological exam: Alert, Oriented x3 - Skin Skin Exam: Dry, Pallor - Additional Findings Additional findings: Palliative performance scale rating 60% Results - Vital Signs Recent Vital Signs: Last Vital Signs Temp 98 F 09/14/18 05:57 Pulse 99 H 09/14/18 05:57 Resp 20 09/14/18 05:57 BP 166/85 H 09/14/18 05:57 Pulse Ox 97 09/14/18 05:57 - Labs Result Diagrams: 09/14/18 06:00 09/14/18 07:45 Labs: Laboratory Results - last 24 hr 09/14/18 09/14/18 06:00 07:45 WBC 6.4 D RBC 4.46 Hgb 13.4 L Hct 40.9 L MCV 91.7 MCH 30.0 MCHC 32.8 RDW 14.8 H Plt Count 116 L MPV 10.4 Gran % 91.9 H Lymph % (Auto) 3.8 L [place] % (Auto) 4.1 Eos % (Auto) 0.2 L Baso % (Auto) 0.0 Gran # 5.89 Lymph # (Auto) 0.2 L [place] # (Auto) 0.3 Eos # (Auto) 0.0 Baso # (Auto) 0.00 Sodium 140 Potassium 5.1 H Chloride 108 H Carbon Dioxide 26 Anion Gap 11 BUN 25 H Creatinine 0.6 L Est GFR ( Amer) > 60 Est GFR (Non-Af Amer) > 60 Random Glucose 165 H Calcium 8.8 Total Bilirubin 0.5 AST 22 ALT 33 Alkaline Phosphatase 100 Total Protein 5.7 L Albumin 3.0 Globulin 2.7 Albumin/Globulin Ratio 1.1 Assessment & Plan - Assessment and Plan (Free Text) Assessment: 77 year old male with history of metastatic lung cancer,HTN, DM and neurogneic bladder who is admitted with left pleural effusion, hyperglycemia, shortness of breath which has since resolved and weakness. He s/p port a cath placement 09/13/18. The patient is alert, oriented and of pleasant demeanor. He offers no complaints. His is at bedside. Goals of care and advance care planning dis cussion ensued.The patient/family aware that he has lung cancer. He intends to purse treatment with his oncologist, Dr Rodriguez upon discharge. He does not have and advanced directive. Benefits and burdens of CPR/intubation explained.Questions answered. The patient and intend to discuss with their children before enacting a directive. Time spent in goals of care and advance care planning discussion with patient and , 30 minutes. Plan: [place] of care and advance care planning Pleural effusion CAP: Continue Azithromycin and Rocephin Dyspnea> Nebulizers as needed Lung Cancer: Will follow Dr Rodriguez as out patient
[2018-09-14] MEDS: Azithromycin 500MG/NS 250ml 500 MG/250 ML BAG IVPB SCH (11:38)
--- NOTE | 2018-09-14 14:33 | CON ---
DATE: 09/14/2018 HISTORY OF PRESENT ILLNESS: This is a 77-year-old man with lung cancer widely metastatic to his bones. He presents with back pain, radiating down to his leg and I saw him about two weeks ago in the office. At that time, we set him up for a CAT scan-guided biopsy as well as CAT scan and PET scan. I saw him in the office. At that time, he was even weaker, severely short of breath and they told me he had came into the to get a Port-A-Cath and to get possibly therapeutic pleural effusion tap as well as breathing medications. CAT scan shows a 2 x 3.5 cm left upper lobe apex cancer. There is no lymphadenopathy CAT scan without contrast. There is a moderate size left pleural effusion that seems to be loculated and small pericardial effusion only 9 mm in thickness. His bone showed a compression fracture of T11. So at this point, his pO2 is 54 and he had severe whizzing and rhonchi bilaterally. He is on antibiotics. He is on inhalers. There is not much to tap. I spoke with Dr. Rc Escoto and he put in the Port-A-Cath yesterday. We are hoping to send him home by Tuesday. He has a big birthday green party Tuesday and I am hoping to start the chemotherapy next week. I have already sent off request for to help guide the chemotherapy and the family knows that this is not a curable situation. We are trying to keep him to slow down the cancer. Jax Rodriguez MD
--- NOTE | 2018-09-14 16:15 | CP.PCM.PN ---
<Amy Perryah - Last Filed: 09/15/18 06:55> Subjective - Date & Time of Evaluation Date of Evaluation: 09/14/18 Time of Evaluation: 08:15 - Subjective Subjective: Internal Medicine Progress note for Dr. Layne Patient seen and examined this am at bedside. SONIAO per nursing. Patient states his SOB and cough is improving and he is eager to go home soon. Patient otherwise denies BENNETT, CP, dizziness, abdominal pain, dysuria and stool changes. Objective - Vital Signs/Intake and Output Vital Signs (last 24 hours): Temp Pulse Resp BP Pulse Ox 98.2 F 105 H 19 160/85 H 97 09/14/18 12:00 09/14/18 12:00 09/14/18 12:00 09/14/18 12:00 09/14/18 05:57 Intake and Output: 09/14/18 09/14/18 06:59 18:59 Intake Total 1415 Output Total 1900 Balance -485 - Medications Medications: Current Medications Acetaminophen (Tylenol 325mg Tab) 650 mg PO Q4 PRN PRN Reason: Pain, Mild (1-3) Acetylcysteine (Acetylcysteine 20%) 3 ml IH BID [facility] Last Admin: 09/14/18 07:32 Dose: 2 ml Albuterol/Ipratropium (Duoneb 3 Mg/0.5 Mg (3 Ml) Ud) 3 ml IH Q2H PRN PRN Reason: Shortness of Breath Albuterol/Ipratropium (Duoneb 3 Mg/0.5 Mg (3 Ml) Ud) 3 ml IH [id number] [facility] Last Admin: 09/14/18 16:02 Dose: 3 ml Azithromycin (Zithromax) 500 mg PO DAILY [facility] Clindamycin HCl (Cleocin) 150 mg PO Q6 [facility]; Protocol Dexamethasone (Decadron) 4 mg PO QID [facility] Last Admin: 09/14/18 09:44 Dose: 4 mg Enoxaparin Sodium (Lovenox) 30 mg SC DAILY [facility]; Protocol Last Admin: 09/14/18 09:43 Dose: 30 mg Famotidine (Pepcid) 40 mg PO HS [facility] Last Admin: 09/13/18 21:03 Dose: 40 mg Guaifenesin (Mucinex La) 600 mg PO BID [facility] Last Admin: 09/14/18 09:44 Dose: 600 mg Nicotine (Nicoderm Cq) 1 patch TD DAILY [facility] Last Admin: 09/14/18 09:44 Dose: 1 patch Ondansetron HCl (Zofran Inj) 4 mg IVP Q6H PRN PRN Reason: Nausea/Vomiting Oxycodone/Acetaminophen (Percocet 5/325 Mg Tab) 1 tab PO BID PRN PRN Reason: Pain, severe (8-10) Stop: 09/15/18 18:01 Last Admin: 09/13/18 20:51 Dose: 1 tab Pregabalin (Lyrica) 50 mg PO TID [facility] Last Admin: 09/14/18 09:44 Dose: 50 mg - Labs Labs: 09/14/18 06:00 09/14/18 07:45 PT 11.9 SECONDS (9.4-12.5) 09/13/18 06:00 INR 1.03 09/13/18 06:00 - Constitutional Appears: Well, Non-toxic, No Acute Distress, Cachectic, Chronically Ill - Head Exam Head Exam: ATRAUMATIC, NORMOCEPHALIC - Eye Exam Eye Exam: EOMI - ENT Exam ENT Exam: Mucous Membranes Moist - Respiratory Exam Respiratory Exam: Clear to Ausculation Bilateral, NORMAL BREATHING PATTERN - Cardiovascular Exam Cardiovascular Exam: REGULAR RHYTHM - GI/Abdominal Exam GI & Abdominal Exam: Soft. absent: Distended, Guarding, Tenderness - Extremities Exam Extremities Exam: Normal Capillary Refill. absent: Calf Tenderness, Pedal Edema - Neurological Exam Neurological Exam: Alert, Awake, Oriented x3 Additional comments: ambulates appropriately with walker - Psychiatric Exam Psychiatric exam: Normal Affect, Normal Mood - Skin Skin Exam: Dry, Intact, Warm Additional comments: ecchymotic area over the lateral surface of the right wrist 2/2 IV access attempt, area is improving Assessment and Plan - Assessment and Plan (Free Text) Assessment: 77 year old male with cough/SOB 2/2 Pleural effusion, PMH significant for recently dx Lung CA with bone mets Plan: History of Lung CA with Metastases to Lumbar Spine, Hip, and Ribs - patient has appointment with Heme/ONC Dr. Rodriguez on Tuesday - Patient s/p Biopsy as an out-patient, awaiting pathology results for treatment planning - Port placement 09/[address] Escoto, tolerated procedure well Cough/SOB likely 2/2 pleural effusion, pneumonia unlikely - Azithromycin PO - Rocephin discontinued - Clindamycin PO started - Blood cx negative x 48 hrs - c/w mucomyst, mucinex and duonebs Elevated BNP; rule-out CHF - BNP > 1000 - likely 2/2 to moderate to sever aortic stenosis on ECHO - no evidence of CHF on ECHO at this time EF 60-65% PPx: - GI: pepcid - DVT: SCD (anticoagulation held due to possible procedure tomorrow morning) Patient seen, examined and discussed with Dr. Xi Perry, PGY 1 <Miguel Layne - Last Filed: 09/15/18 09:30> Objective - Vital Signs/Intake and Output Vital Signs (last 24 hours): Temp Pulse Resp BP Pulse Ox 97.4 F L 93 H 18 140/79 94 L 09/15/18 06:00 09/15/18 06:00 09/15/18 06:00 09/15/18 06:00 09/15/18 06:00 Intake and Output: 09/15/18 09/15/18 06:59 18:59 Intake Total 0 500 Balance 0 500 - Medications Medications: Current Medications Acetaminophen (Tylenol 325mg Tab) 650 mg PO Q4 PRN PRN Reason: Pain, Mild (1-3) Acetylcysteine (Acetylcysteine 20%) 3 ml IH BID [facility] Last Admin: 09/15/18 07:55 Dose: 3 ml Albuterol/Ipratropium (Duoneb 3 Mg/0.5 Mg (3 Ml) Ud) 3 ml IH Q2H PRN PRN Reason: Shortness of Breath Albuterol/Ipratropium (Duoneb 3 Mg/0.5 Mg (3 Ml) Ud) 3 ml IH [id number] [facility] Last Admin: 09/15/18 07:56 Dose: 3 ml Clindamycin HCl (Cleocin) 150 mg PO Q6 [facility]; Protocol Last Admin: 09/15/18 05:32 Dose: 150 mg Dexamethasone (Decadron) 4 mg PO QID [facility] Last Admin: 09/14/18 22:34 Dose: 4 mg Enoxaparin Sodium (Lovenox) 30 mg SC DAILY [facility]; Protocol Last Admin: 09/14/18 09:43 Dose: 30 mg Famotidine (Pepcid) 40 mg PO HS [facility] Last Admin: 09/14/18 22:34 Dose: 40 mg Guaifenesin (Mucinex La) 600 mg PO BID [facility] Last Admin: 09/14/18 18:01 Dose: 600 mg Nicotine (Nicoderm Cq) 1 patch TD DAILY [facility] Last Admin: 09/14/18 09:44 Dose: 1 patch Ondansetron HCl (Zofran Inj) 4 mg IVP Q6H PRN PRN Reason: Nausea/Vomiting Oxycodone/Acetaminophen (Percocet 5/325 Mg Tab) 1 tab PO BID PRN PRN Reason: Pain, severe (8-10) Stop: 09/15/18 18:01 Last Admin: 09/13/18 20:51 Dose: 1 tab Pregabalin (Lyrica) 50 mg PO TID [facility] Last Admin: 09/14/18 18:01 Dose: 50 mg - Labs Labs: 09/15/18 06:00 09/15/18 06:00 PT 11.9 SECONDS (9.4-12.5) 09/13/18 06:00 INR 1.03 09/13/18 06:00 Attending/Attestation - Attestation I have personally seen and examined this patient.: Yes I have fully participated in the care of the patient.: Yes I have reviewed all pertinent clinical information, including history, physical exam and plan: Yes Notes (Text): Stage IV Lung CA s/p Port placement currently awaiting path report. Outpt oncology with Dr Harris ? PNA: most like just the lung mass, but unable to completely rule out underlying infiltrate DC Zithromax and Rocephin C/w Doxycycline 09/15/18 09:28
[2018-09-15] MEDS: Albuterol-Ipratrop 3 mg / 0.5 (3 ml) UD IH SCH ×3 (03:38→11:26)
[2018-09-15 06:53] VITALS: BP 140/79; PULSE 93; RESP 18; TEMP 97.4; O2SAT 94
[2018-09-15 06:57] LABS: BASO # 0.01 K/mm3 (0.0-2.0); BASO % 0.1 % (0.0-3.0); GRAN # 7.07 (1.4-6.5); GRAN % 91.2 % (50.0-68.0); LYMPH # 0.5 (1.2-3.4); LYMPH % 5.9 % (22.0-35.0); MEAN CELL VOLUME 91.4 fl (80.0-105.0); MEAN CORPUSCULAR HEMOGLOBIN 30.2 pg (25.0-35.0); MEAN PLATELET VOLUME 9.7 fl (7.0-11.0); MONO # 0.2 (0.1-0.6); MONO % 2.8 % (1.0-6.0); RBC 4.31 10^6/uL (3.5-6.1); RED CELL DISTRIBUTION WIDTH 14.8 % (11.5-14.5); WHITE BLOOD COUNT 7.8 10^3/uL (4.5-11.0)
[2018-09-15 07:10] LABS: ALBUMIN 3.1 g/dL (3.0-4.8); ALT/SGPT 27 U/L (7-56); AST/SGOT 23 U/L (17-59); BLOOD UREA NITROGEN 27 mg/dL (7-21); CALCIUM 8.9 mg/dL (8.4-10.5); GFR NON-AFRICAN AMERICAN > 60
[2018-09-15] MEDS: Acetylcysteine 20% Inhal Soln (4ml) IH SCH ×2 (07:55→11:26)
[2018-09-15] MEDS: guaiFENesin 600 mg ER Tab PO SCH (10:03)
[2018-09-15] MEDS: Enoxaparin 30 mg Syringe SC SCH (10:04)
--- NOTE | 2018-09-15 12:07 | CP.PCM.PN ---
Subjective - Date & Time of Evaluation Date of Evaluation: 09/15/18 Time of Evaluation: 11:00 - Subjective Subjective: Alert, offers no complaints Objective - Vital Signs/Intake and Output Vital Signs (last 24 hours): Temp Pulse Resp BP Pulse Ox 97.4 F L 93 H 18 140/79 94 L 09/15/18 06:00 09/15/18 06:00 09/15/18 06:00 09/15/18 06:00 09/15/18 06:00 Intake and Output: 09/15/18 09/15/18 06:59 18:59 Intake Total 0 500 Balance 0 500 - Medications Medications: Current Medications Acetaminophen (Tylenol 325mg Tab) 650 mg PO Q4 PRN PRN Reason: Pain, Mild (1-3) Acetylcysteine (Acetylcysteine 20%) 3 ml IH BID [facility] Last Admin: 09/15/18 11:26 Dose: Not Given Albuterol/Ipratropium (Duoneb 3 Mg/0.5 Mg (3 Ml) Ud) 3 ml IH Q2H PRN PRN Reason: Shortness of Breath Albuterol/Ipratropium (Duoneb 3 Mg/0.5 Mg (3 Ml) Ud) 3 ml IH [id number] [facility] Last Admin: 09/15/18 11:26 Dose: 3 ml Clindamycin HCl (Cleocin) 150 mg PO Q6 [facility]; Protocol Last Admin: 09/15/18 05:32 Dose: 150 mg Dexamethasone (Decadron) 4 mg PO QID [facility] Last Admin: 09/15/18 10:04 Dose: 4 mg Enoxaparin Sodium (Lovenox) 30 mg SC DAILY [facility]; Protocol Last Admin: 09/15/18 10:04 Dose: 30 mg Famotidine (Pepcid) 40 mg PO HS [facility] Last Admin: 09/14/18 22:34 Dose: 40 mg Guaifenesin (Mucinex La) 600 mg PO BID [facility] Last Admin: 09/15/18 10:03 Dose: 600 mg Nicotine (Nicoderm Cq) 1 patch TD DAILY [facility] Last Admin: 09/15/18 10:03 Dose: 1 patch Ondansetron HCl (Zofran Inj) 4 mg IVP Q6H PRN PRN Reason: Nausea/Vomiting Oxycodone/Acetaminophen (Percocet 5/325 Mg Tab) 1 tab PO BID PRN PRN Reason: Pain, severe (8-10) Stop: 09/15/18 18:01 Last Admin: 09/13/18 20:51 Dose: 1 tab Pregabalin (Lyrica) 50 mg PO TID [facility] Last Admin: 09/15/18 10:03 Dose: 50 mg - Labs Labs: 09/15/18 06:00 09/15/18 06:00 PT 11.9 SECONDS (9.4-12.5) 09/13/18 06:00 INR 1.03 09/13/18 06:00 - Constitutional Appears: Chronically Ill - Head Exam Head Exam: NORMAL INSPECTION - Eye Exam Eye Exam: Normal appearance, PERRL - Respiratory Exam Respiratory Exam: Decreased Breath Sounds, NORMAL BREATHING PATTERN - Cardiovascular Exam Cardiovascular Exam: REGULAR RHYTHM, +S1, +S2 - GI/Abdominal Exam GI & Abdominal Exam: Soft, Normal Bowel Sounds - Extremities Exam Extremities Exam: Pedal Edema - Neurological Exam Neurological Exam: Alert, Oriented x3 - Skin Skin Exam: Dry, Pallor Assessment and Plan - Assessment and Plan (Free Text) Assessment: 77 year old male with history of metastatic lung cancer,HTN, DM who is admitted with pleural effusion,hyperglycemia, weakness and dyspnea. Advance care planning discussion revisited. Yesterday I met with patient and , benefits and burdens of CPR/intubation were explained. Patients and daughter at beside today. The patient has decided against completing an advanced directive at this time. Time spent with patient /family in advance care planning, 15 minutes Plan: Advance care planning Pleural effusion/CAP: Clindamycin PO Will follow up with Dr. Rodriguez as out patient
--- NOTE | 2018-09-15 13:14 | CP.PCM.DIS ---
Provider - Provider Date of Admission: 09/12/18 13:40 Attending physician: Scott Rainey MD Primary care physician: Don Ashley MD Consults: 09/12/18 14:25 Consult [Physician Consult] Routine Comment: Consulting Provider: Rc Escoto Consulting Physician: Rc Escoto Reason for Consult: Port and L lung effusion 09/12/18 14:26 Physician Consult Routine Comment: Consulting Provider: Jax Rodriguez Consulting Physician: Jax Rodrigeuz Reason for Consult: Lung ca 09/12/18 14:38 Palliative Care Consult Routine Comment: Consulting Provider: Zena Crockett Physician Instructions: Reason For Exam: Lung Cancer - New Diagnosis 09/12/18 18:42 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 Routine Comment: Physician Instructions: Reason For Exam: EVALUATION Nursing Referral for Wound Care Routine Comment: LARGE BRUISE TO RIGHT HAND-BX DONE.INTACT SKIN Physician Instructions: Reason For Exam: EVALUATION Transition In Care/Readmission Reduction Routine Comment: Physician Instructions: Reason For Exam: EVALUATION 09/12/18 18:46 Social Work Referral Routine Comment: DISCHARGE PLANNING TO HOME Physician Instructions: Reason For Exam: EVALUATION 09/12/18 18:47 Nursing Referral for Palliative Care Routine Comment: Physician Instructions: Reason For Exam: EVALUATION Time Spent in preparation of Discharge (in minutes): 45 Hospital Course - Lab Results Lab Results: Micro Results 09/12/18 12:24 Blood-Venous Blood Culture - Preliminary NO GROWTH AFTER 3 DAYS 09/12/18 12:00 Blood-Venous Blood Culture - Preliminary NO GROWTH AFTER 3 DAYS 09/12/18 17:28 Urine Urine Culture - Final MULTIPLE SPECIES. SUGGEST REPEAT SPECIMEN. Most Recent Lab Values WBC 7.8 10^3/uL (4.5-11.0) D 09/15/18 06:00 RBC 4.31 10^6/uL (3.5-6.1) 09/15/18 06:00 Hgb 13.0 g/dL (14.0-18.0) L 09/15/18 06:00 Hct 39.4 % (42.0-52.0) L 09/15/18 06:00 MCV 91.4 fl (80.0-105.0) 09/15/18 06:00 MCH 30.2 pg (25.0-35.0) 09/15/18 06:00 MCHC 33.0 g/dl (31.0-37.0) 09/15/18 06:00 RDW 14.8 % (11.5-14.5) H 09/15/18 06:00 Plt Count 121 10^3/uL (120.0-450.0) 09/15/18 06:00 MPV 9.7 fl (7.0-11.0) 09/15/18 06:00 Gran % 91.2 % (50.0-68.0) H 09/15/18 06:00 Lymph % (Auto) 5.9 % (22.0-35.0) L 09/15/18 06:00 [place] % (Auto) 2.8 % (1.0-6.0) 09/15/18 06:00 Eos % (Auto) 0.0 % (1.5-5.0) L 09/15/18 06:00 Baso % (Auto) 0.1 % (0.0-3.0) 09/15/18 06:00 Gran # 7.07 (1.4-6.5) H 09/15/18 06:00 Lymph # (Auto) 0.5 (1.2-3.4) L 09/15/18 06:00 [place] # (Auto) 0.2 (0.1-0.6) 09/15/18 06:00 Eos # (Auto) 0.0 (0.0-0.7) 09/15/18 06:00 Baso # (Auto) 0.01 K/mm3 (0.0-2.0) 09/15/18 06:00 Neutrophils % (Manual) 87 % (50.0-70.0) H 09/12/18 12:00 Band Neutrophils % 1 % (0-2) 09/12/18 12:00 Lymphocytes % (Manual) 8 % (22.0-35.0) L 09/12/18 12:00 Monocytes % (Manual) 4 % (1.0-6.0) 09/12/18 12:00 Platelet Evaluation Low (NORMAL) 09/12/18 12:00 PT 11.9 SECONDS (9.4-12.5) 09/13/18 06:00 INR 1.03 09/13/18 06:00 pO2 54 mm/Hg (30-55) 09/12/18 16: VBG pH 7.40 (7.32-7.43) 09/12/18 16: VBG pCO2 45.0 (40-60) 09/12/18 16: VBG HCO3 27.9 mmol/l (21-28) 09/12/18 16: VBG Total CO2 29.3 mmol.L (22-28) H 09/12/18 16: VBG O2 Sat (Calc) 91.4 % (40-65) H 09/12/18 16: VBG Base Excess 2.5 mmol/L (0.0-2.0) H 09/12/18 16: VBG Potassium 3.7 mmol/L (3.6-5.2) 09/12/18 16: Sodium 139.0 mmol/L (132-148) 09/12/18 16: Chloride 105.0 mmol/L (98-107) 09/12/18 16: Glucose 89 mg/dl (75-110) 09/12/18 16:28 Lactate 1.5 mmol/L (0.7-2.1) 09/12/18 16: FiO2 21.0 % 09/12/18 16: Sodium 136 mmol/L (132-148) 09/15/18 06:00 Potassium 4.6 mmol/L (3.6-5.0) 09/15/18 06:00 Chloride 106 mmol/L (98-107) 09/15/18 06:00 Carbon Dioxide 27 mmol/L (21-33) 09/15/18 06:00 Anion Gap 8 (10-20) L 09/15/18 06:00 BUN 27 mg/dL (7-21) H 09/15/18 06:00 Creatinine 0.8 mg/dl (0.8-1.5) 09/15/18 06:00 Est GFR ( Amer) > 60 09/15/18 06:00 Est GFR (Non-Af Amer) > 60 09/15/18 06:00 Random Glucose 165 mg/dL (70-110) H 09/15/18 06:00 Calcium 8.9 mg/dL (8.4-10.5) 09/15/18 06:00 Magnesium 2.1 mg/dL (1.7-2.2) 09/12/18 12:00 Total Bilirubin 0.4 mg/dL (0.2-1.3) 09/15/18 06:00 AST 23 U/L (17-59) 09/15/18 06:00 ALT 27 U/L (7-56) 09/15/18 06:00 Alkaline Phosphatase 101 U/L (38-126) 09/15/18 06:00 Lactate Dehydrogenase 651 U/L (333-699) 09/12/18 12:00 Total Creatine Kinase 34 U/L (35-230) L 09/12/18 12:00 Troponin I 0.02 ng/mL D 09/12/18 12:00 NT-Pro-B Natriuret Pep 1010 pg/mL (0-450) H 09/12/18 12:00 Total Protein 6.0 g/dL (5.8-8.3) 09/15/18 06:00 Albumin 3.1 g/dL (3.0-4.8) 09/15/18 06:00 Globulin 3.0 gm/dL 09/15/18 06:00 Albumin/Globulin Ratio 1.0 (1.1-1.8) L 09/15/18 06:00 Venous Blood Potassium 3.7 mmol/L (3.6-5.2) 09/12/18 16:28 Urine Color Yellow (YELLOW) 09/12/18 17:28 Urine Appearance Sl cloudy (CLEAR) 09/12/18 17:28 Urine pH 6.0 (4.7-8.0) 09/12/18 17:28 Ur Specific [place] 1.025 (1.005-1.035) 09/12/18 17:28 Urine Protein Trace mg/dL (<30 mg/dL) H 09/12/18 17:28 Urine Glucose (UA) Negative mg/dL (NEGATIVE) 09/12/18 17:28 Urine Ketones Negative mg/dL (NEGATIVE) 09/12/18 17:28 Urine Blood Trace-intact (NEGATIVE) H 09/12/18 17:28 Urine Nitrate Negative (NEGATIVE) 09/12/18 17:28 Urine Bilirubin Negative (NEGATIVE) 09/12/18 17:28 Urine Urobilinogen 1.0 E.U./dL (<1 E.U./dL) H 09/12/18 17:28 Ur Leukocyte Esterase Small Amit[place]/uL (NEGATIVE) H 09/12/18 17:28 Urine RBC 0 - 2 /hpf (0-2) 09/12/18 17:28 Urine WBC 2 - 5 /hpf (0-6) 09/12/18 17:28 Ur Epithelial Cells None /hpf (0-5) 09/12/18 17:28 Urine Bacteria Mod (NEG) 09/12/18 17:28 - Hospital Course Hospital Course: Upon Admission: 77 year old male, with a past medical history of HTN, DM, BPH, neurogenic bladder, UTI's, and 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 Rodriguez and Dr. Ashley for further evaluation of worsening dyspnea on exertion as well as placement of portacath. Patient states of intermittent productive cough associated with shortness of breath since 2 weeks ago. Pt admits of worsening speaking and hoarse voice. Patient c/o pain in bilateral hip and shoulder. Patient was admitted for further evaluation of dyspnea and productive cough as well as port placement for possible chemotherapy. Hospital Course: During his hospital stay, chest CT was done with irregular mass and mild size pleural effusion on left side. Patient's symptoms is most likely due to pleural effusion. Pt was started Azithromycin and Rocephin for possible pneumonia. IR was consulted for pleural effusion drainage and port placement. Port placement on 09/13/2018 with no complications. IR determined effusion was not large enough to be drained. Blood work was done with increased BNP. Echo was done with no evidence of CHF. increased BNP level most likely due to malignancy. Patients pain was controlled with pain medication. Patient dyspnea and cough improved. Pt was placed on clindamycin rather than Rocephin prior to discharge. Upon Discharge: Patient was normoensive and maintaining O2 Saturations > 95 % on RA. Pt will f/u with his Heme/Onc Dr. Rodriguez as an outpatient on Tuesday09/18/18 to discuss pathology report and treatment planning. Pt deemed stable for discharge from medicine standpoint by Dr. Layne. Pt is instructed to follow up with his primary care doctor as well as Dr. Rodriguez and to return to the hospital for any worsening symptoms. This is a short summary of the patients hospital stay. Please refer to the complete chart for full details. - Date & Time of H&P Date of H&P: 09/15/18 Time of H&P: 08:10 Discharge Exam - Head Exam Head Exam: NORMAL INSPECTION - Eye Exam Eye Exam: EOMI - ENT Exam ENT Exam: Mucous Membranes Moist - Respiratory Exam Respiratory Exam: Clear to PA & Lateral, NORMAL BREATHING PATTERN - Cardiovascular Exam Cardiovascular Exam: REGULAR RHYTHM - GI/Abdominal Exam GI & Abdominal Exam: Soft. absent: Distended, Guarding, Tenderness - Extremities Exam Extremities exam: normal capillary refill, pedal pulses present - Neurological Exam Neurological exam: Alert, Oriented x3 - Psychiatric Exam Psychiatric exam: Normal Affect, Normal Mood - Skin Skin Exam: Dry, Intact, Warm Additional comments: small area of ecchymosis over right lateral wrist improving Discharge Plan - Discharge Medications Prescriptions: Albuterol Sulfate [Ventolin Hfa] 1 puff IH Q6H PRN #1 inh PRN Reason: Shortness Of Breath Azithromycin [Zithromax] 500 mg PO DAILY #3 tab Clindamycin [Cleocin] 150 mg PO Q6 #12 cap Dexamethasone [Decadron] 4 mg PO QID #56 tab Fluticasone/Salmeterol 250/50 [Advair Diskus] 1 puff IH Q12 #1 inh Oxycodone HCl/Acetaminophen [Oxycodone-Acetaminophen 5-325] 1 tab PO BID PRN #10 tablet PRN Reason: Pain, Severe (8-10) Pregabalin [Lyrica] 50 mg PO TID #42 cap - Follow Up Plan Condition: STABLE Disposition: HOME/ ROUTINE Instructions: Shortness of Breath (Dyspnea) (DC), Pleural Effusion (DC) Additional Instructions: Please follow up with primary medical doctor, Dr. Torrez in 3-5 days. Please follow up with oncologist, Dr. Rodriguez in 3-5 days. You were give a prescription for: - Antibiotic: - Clindamycin 150mg FOUR times per day for 3 more days - Azithromycin 500mg DAILY for 3 more days - Ventolin inhaler 1 puff 4 times per day NEEDED for shortness of breath - Advair 1 puff TWICE per day SCHEDULED - Percocet 5/325mg TWICE per day NEEDED for pain - Dexamethasone 5mg FOUR times per day - Lyrica 50mg THREE times per day If your symptoms worsen, please go to the nearest emergency department. Change Port Dressing every 4 days and as needed for 2 weeks Keep dressing clean dry an intact Cover incision with plastic wrap when showering for 2 weeks Referrals: Don Ashley MD [Primary Care Provider] -
== END 2018-09-15 12:54 | disposition home or self-care (01) | DRG 181 ==
LOC: ED 10:45 → ERH 13:40 → 2RSO 18:01 → 2RNO 09-13 19:04
PROVIDERS: ADMIT Internal Medicine; ATTEND Internal Medicine
PROC: 3E0F7GC Introduction of Other Therapeutic Substance into Respiratory Tract, Via Natural or Artificial Opening (ICD-10-PCS; 2018-09-12)
PROC: 0JHD3XZ Insertion of Tunneled Vascular Access Device into Right Upper Arm Subcutaneous Tissue and Fascia, Percutaneous Approach (ICD-10-PCS; principal; 2018-09-13)
DX: C34.12 Malignant neoplasm of upper lobe, left bronchus or lung (principal); C79.51 Secondary malignant neoplasm of bone; J90 Pleural effusion, not elsewhere classified; I31.3 Pericardial effusion (noninflammatory); E11.9 Type 2 diabetes mellitus without complications; N40.1 Benign prostatic hyperplasia with lower urinary tract symptoms; N31.9 Neuromuscular dysfunction of bladder, unspecified; F17.200 Nicotine dependence, unspecified, uncomplicated; I10 Essential (primary) hypertension

== ENCOUNTER 2018-09-24 12:22 | Inpatient (IN) | payer MEDICARE ==
--- NOTE | 2018-09-24 13:14 | ED PDOC ---
Arrival/HPI - General Chief Complaint: Weakness/Neurological Deficit Time Seen by Provider: 09/24/18 12:38 Historian: Spouse ( provided information) - History of Present Illness Narrative History of Present Illness (Text): 09/24/18 12:50 78 year old male, whose past medical history includes lung CA with metastasis to Lumbar spine, ribs and hips s/p recent biopsy and PET scan, who was brought in to the emergency department for weakness since 09/21/18, noting symptoms started after chemotherapy that day. states pt has not been wanting to eat, drink, or take his painkillers since 09/21/18, but complains of pain. reports pt was able to get up at first, but now is not able to get up, noting it took her 5 hours to get him out of bed yesterday. states patient is not urinating and catherized himself at home. does not report any other complaints at this time. PMD: Don Ashley Oncologist: Dr. Rodriguez Time/Duration: > week ( notes symptom onset as 09/21/18) Symptom Onset: Sudden Symptom Course: Unchanged Activities at Onset: Light Past Medical History - Provider Review Nursing Documentation Reviewed: Yes - Infectious Disease Hx of Infectious Diseases: None - Tetanus Immunization Tetanus Immunization: Unknown - Cardiac Hx Pacemaker: No - Pulmonary Hx Respiratory Disorders: No - Neurological Hx Neurological Disorder: No Hx Paralysis: No - HEENT Hx HEENT Disorder: No Hx Blind: No - Renal Hx Renal Disorder: No - Endocrine/Metabolic Hx Diabetes Mellitus Type 2: Yes - Hematological/Oncological Hx Blood Disorders: No Hx Blood Transfusions: No Hx Blood Transfusion Reaction: No - Integumentary Hx Dermatological Disorder: No - Musculoskeletal/Rheumatological Hx Falls: No - Gastrointestinal Hx Gastrointestinal Disorders: No - Genitourinary/Gynecological Hx Genitourinary Disorders: Yes (NEUROGENIC BLADDER,UROSEPSIS,CHRONIC URINARY RETENTION,BPH) Hx Reproductive Disorders: Yes (BPH) - Psychiatric Hx Psychophysiologic Disorder: No Hx Depression: No Hx Emotional Abuse: No Hx Physical Abuse: No Hx Substance Use: No - Surgical History Other/Comment: carotid endarterectomy - Anesthesia Hx Anesthesia: Yes Hx Anesthesia Reactions: No Hx Malignant Hyperthermia: No - Suicidal Assessment Feels Threatened In Home Enviroment: No Family/Social History - Physician Review Nursing Documentation Reviewed: Yes Family/Social History: No Known Family HX Smoking Status: Former Smoker Hx Alcohol Use: Yes Hx Substance Use: No Hx Substance Use Treatment: No Allergies/Home Meds Allergies/Adverse Reactions: Allergies No Known Allergies Allergy (Verified 09/24/18 12:29) Home Medications: Home Meds Medication Instructions Recorded Confirmed Folic Acid 1 mg PO DAILY 09/24/18 09/24/18 Review of Systems - Physician Review All systems were reviewed & negative as marked: Yes - Review of Systems Constitutional: Fatigue ( notes weakness). absent: Normal Gastrointestinal: Appetite Changes ( notes pt has not been wanting to eat or drink anything since 09/21). absent: Normal Genitourinary Male: Frequency ( states pt is not urinating). absent: Normal Physical Exam Vital Signs Reviewed: Yes Vital Signs Temp Pulse Resp BP Pulse Ox 09/24/18 12:44 98.3 F 107 H 18 152/80 H 95 Temperature: Afebrile Blood Pressure: Hypertensive Pulse: Tachycardic Respiratory Rate: Normal Appearance: Positive for: Non-Toxic, Comfortable, Cachectic Pain Distress: Mild Mental Status: Positive for: Alert and Oriented X 3 - Systems Exam Head: Present: Atraumatic, Normocephalic Pupils: Present: PERRL Extroacular Muscles: Present: EOMI Conjunctiva: Present: Normal Mouth: Present: Dry Respiratory/Chest: Present: Wheezes (expiratory wheezes auscultated in anterior lung hough b/l), Decreased Breath Sounds, Rhonchi. No: Respiratory Distress, Accessory Muscle Use Cardiovascular: Present: Regular Rate and Rhythm, Tachycardic, Other (Palpable port on right hemithorax) Abdomen: No: Tenderness, Distention, Peritoneal Signs Back: Present: Normal Inspection Upper Extremity: Present: Normal Inspection, Other (Old healed surgical scars. No purulence noted. ) Lower Extremity: Present: Normal Inspection. No: Edema Neurological: Present: GCS=15, CN II-XII Intact Skin: Present: Other (Scattered ecchymosis on right upper extremity) Psychiatric: Present: Alert, Oriented x 3 Medical Decision Making ED Course and Treatment: 09/24/18 12:50 Impression: 78 year old male who was brought in to the emergency department for weakness since 09/21/18, noting symptoms started after chemotherapy that day. Differential Diagnosis included but are not limited to: --PNA --UTI --Sepsis Plan: -- Labs -- EKG --Cefipime --Vancomycin --NSS -- CXR -- CT of chest w/o contrast -- Blood culture -- Urine culture -- [employer] Systems Administrator -- Guzman Catheter -- Urinalysis -- Reassess and disposition Prior Visits: Notes and results from previous visits were reviewed. Patient was last seen in the emergency department on 09/12/18, was referred to the ED by Dr. Rodriguez and Dr. Ashley for possible admission for worsening dyspnea on exertion and port placement that day. Patient was hospitalized in stable condition with diagnosis of pleural effusion, lung cancer metastatic to bone, dyspnea, thrombocytopenia, and dehydration. Progress Notes: 09/24/18 14:[address] Lin(hospitalist) who is aware of and agrees to accept pt onto his service, and requests chemistries to be resulted prior to Vancomycin administration. Will relay to nurse, pending CT of chest. 09/24/18 15:04 Chemistries reviewed with creatinine noted to be within baseline. Nurse prompted to hang vancomycin. CT chest results pending. - RAD Interpretation Narrative RAD Interpretations (Text): X-Ray of chest reviewed by radiologist, shows: Dictator : Janette Rader MD Report Date : 09/24/2018 13:28:54 IMPRESSION: Right-sided central venous catheter extends to the proximal right atrium. Partially obscured cardiomegaly. Small left pleural effusion with associated consolidation. Left apical pleural thickening/fluid. The left hemithorax demonstrates evidence of interstitial thickening. Spiculated mass within the left lung apex seen to better advantage on CT of the chest performed 09/12/18. Radiology Orders: 09/24/18 12:53 CHEST PORTABLE [RAD] Stat Acid Filler: Radiologist - EKG Interpretation EKG Interpretation (Text): 09/24/18 12:33:25 EKG: Ordered, reviewed, and independently interpreted the EKG. Rate : 111 BPM Rhythm : Sinus Tachycardia Interpretation : LVH present. No hyper acute T-waves. Prolonged QT interval Interpreted by ED Physician: Yes Type: 12 lead EKG - Scribe Statement The provider has reviewed the documentation as recorded by the Scribe Dora Lozano All medical record entries made by the Scribe were at my direction and personally dictated by me. I have reviewed the chart and agree that the record accurately reflects my personal performance of the history, physical exam, medical decision making, and the department course for this patient. I have also personally directed, reviewed, and agree with the discharge instructions and disposition. Disposition/Present on Arrival - Present on Arrival Any Indicators Present on Arrival: No History of DVT/PE: No History of Uncontrolled Diabetes: No Urinary Catheter: No History of Decub. Ulcer: No History Surgical Site Infection Following: None - Disposition Have Diagnosis and Disposition been Completed?: Yes Diagnosis: SIRS (systemic inflammatory response syndrome) Disposition: HOSPITALIZED Disposition Time: 14:06 Patient Plan: Admission Condition: GUARDED
[2018-09-24] MEDS ORDERED: Albuterol-Ipratrop 3 mg / 0.5 (3 ml) UD IH STA (13:30)
--- NOTE | 2018-09-24 13:32 | RAD ---
HISTORY: Sepsis Patient COMPARISON: Chest x-ray performed 03/22/16, CT chest without contrast performed 09/12/18 TECHNIQUE: Chest, one view. FINDINGS: Right-sided central venous catheter extends to the proximal right atrium. LUNGS: Small left pleural effusion with associated consolidation. Left apical pleural thickening/fluid. The left hemithorax demonstrates evidence of interstitial thickening. Spiculated mass within the left lung apex seen to better advantage on CT of the chest performed 09/12/18. CARDIOVASCULAR: Partially obscured cardiomegaly. No significant atherosclerotic calcification present. OSSEOUS STRUCTURES: Degenerative changes. VISUALIZED UPPER ABDOMEN: Unremarkable. OTHER FINDINGS: None. IMPRESSION: Right-sided central venous catheter extends to the proximal right atrium. Partially obscured cardiomegaly. Small left pleural effusion with associated consolidation. Left apical pleural thickening/fluid. The left hemithorax demonstrates evidence of interstitial thickening. Spiculated mass within the left lung apex seen to better advantage on CT of the chest performed 09/12/18.
[2018-09-24 13:48] LABS: GRAN # 12.02 (1.4-6.5); GRAN % 96.4 % (50.0-68.0); HEMOGLOBIN 13.7 g/dL (14.0-18.0); LYMPH # 0.4 (1.2-3.4); LYMPH % 3.3 % (22.0-35.0); MEAN CELL VOLUME 90.7 fl (80.0-105.0); MEAN CORPUSCULAR HEMOGLOBIN 30.4 pg (25.0-35.0); MEAN CORPUSCULAR HGB CONC 33.6 g/dl (31.0-37.0); MEAN PLATELET VOLUME 9.7 fl (7.0-11.0); MONO % 0.3 % (1.0-6.0); PLATELET COUNT 129 10^3/uL (120.0-450.0); RED CELL DISTRIBUTION WIDTH 14.9 % (11.5-14.5); WHITE BLOOD COUNT 12.5 10^3/uL (4.5-11.0)
[2018-09-24 13:58] LABS: INR 1.01; PARTIAL THROMBOPLASTIN TIME 23.9 Seconds (25.1-36.5); PROTHROMBIN TIME 11.5 SECONDS (9.4-12.5)
[2018-09-24 14:01] LABS: URINE BILIRUBIN SMALL (NEGATIVE); URINE BLOOD SMALL (NEGATIVE); URINE GLUCOSE (UA) NEGATIVE (NEGATIVE); URINE LEUKOCYTE ESTERASE SMALL Leu/uL (NEGATIVE); URINE PROTEIN NEGATIVE mg/dL (<30 mg/dL); URINE UROBILINOGEN 0.2 E.U./dL (<1 E.U./dL)
[2018-09-24 14:02] LABS: LYMPHOCYTE 4 % (22.0-35.0); NEUTROPHIL 96 % (50.0-70.0); PLATELET ESTIMATE NORMAL (NORMAL)
[2018-09-24] MEDS ORDERED: Cefepime IV 2 gm in NS 2 GM/100 ML BAG IVPB STA (14:02)
[2018-09-24 14:03] LABS: URINE APPEARANCE CLEAR (CLEAR); URINE COLOR YELLOW (YELLOW)
[2018-09-24] MEDS ORDERED: Vancomycin 1gm in NS 250ml 1 GM/250 ML BAG IVPB STA (14:03)
[2018-09-24] MEDS ORDERED: Sodium Chloride 0.9% 1,000 ML IV STA (14:08)
[2018-09-24 14:12] LABS: URINE BACTERIA LARGE (NEG); URINE EPITHELIAL CELLS 0 - 2 /hpf (0-5); URINE RBC 0 - 2 /hpf (0-2); URINE WBC 20 - 25 /hpf (0-6)
[2018-09-24 14:12] LABS: VENOUS BLOOD GAS PO2 68 mm/Hg (30-55); VENOUS BLOOD PH 7.46 (7.32-7.43)
[2018-09-24 14:19] LABS: ALB/GLOB RATIO 1.1 (1.1-1.8); ALBUMIN 3.2 g/dL (3.0-4.8); ALT/SGPT 35 U/L (7-56); AST/SGOT 28 U/L (17-59); BLOOD UREA NITROGEN 41 mg/dL (7-21); CALCIUM 7.9 mg/dL (8.4-10.5); GFR NON-AFRICAN AMERICAN > 60
[2018-09-24 15:02] LABS: B-TYPE NATRIURETIC PEPTIDE 686 pg/mL (0-450); TROPONIN I 0.04 ng/mL
--- NOTE | 2018-09-24 15:35 | CP.PCM.HP ---
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 Patient reports his family is concerned because he has a lack of appetite and has not taken his medications because he is upset from his cancer. Patient denies any pain to his back, limbs and head at this time. Patient denies any fevers, chills, dizziness, chest pain, abdominal pain, nausea, vomiting, and diarrhea. Patient states he received his diagnosis of Lung CA a few weeks ago, which was confirmed with biopsy, and subsequently received a port. Patient reports he uses a urinary catheter at home due to his history of neurogenic bladder which came about after infection a few years ago. PMH: Lung CA with mets to lumbar spine, ribs, hips, History of diabetes (controlled without medications) PSH: left wrist repair with titanium alisson Social History: Heavy smoker 1 pk/ year for ~60 years. Patient lives at home with his and reports he can ambulate independently Allergies: NKDA PMD: Dr. Ashley Hematology: Dr. Rodriguez Service Consultant: Dr. Todd Present on Admission - Present on Admission Any Indicators Present on Admission: Yes Urinary Catheter: Yes Review of Systems - Review of Systems Review of Systems: 12 step ROS completed and negative except as described in HPI. Past Patient History - Infectious Disease Hx of Infectious Diseases: None - Tetanus Immunizations Tetanus Immunization: Unknown - Past Social History Smoking Status: Former Smoker - CARDIAC Hx Pacemaker: No - PULMONARY Hx Respiratory Disorders: No - NEUROLOGICAL Hx Neurological Disorder: No Hx Paralysis: No - HEENT Hx HEENT Problems: No Hx Blind: No - RENAL Hx Chronic Kidney Disease: No - ENDOCRINE/METABOLIC Hx Diabetes Mellitus Type 2: Yes - HEMATOLOGICAL/ONCOLOGICAL Hx Blood Disorders: No Hx Blood Transfusions: No Hx Blood Transfusion Reaction: No - INTEGUMENTARY Hx Dermatological Problems: No - MUSCULOSKELETAL/RHEUMATOLOGICAL Hx Falls: No - GASTROINTESTINAL Hx Gastrointestinal Disorders: No - GENITOURINARY/GYNECOLOGICAL Hx Genitourinary Disorders: Yes (NEUROGENIC BLADDER,UROSEPSIS,CHRONIC URINARY RETENTION,BPH) Hx Reproductive Disorders: Yes (BPH) - PSYCHIATRIC Hx Psychophysiologic Disorder: No Hx Depression: No Hx Emotional Abuse: No Hx Physical Abuse: No Hx Substance Use: No - SURGICAL HISTORY Other/Comment: carotid endarterectomy - ANESTHESIA Hx Anesthesia: Yes Hx Anesthesia Reactions: No Hx Malignant Hyperthermia: No Meds Allergies/Adverse Reactions: Allergies Allergy/AdvReac Type Severity Reaction Status Date / Time No Known Allergies Allergy Verified 09/24/18 12:29 Physical Exam - Additional Findings Additional findings: - Head Exam Head Exam: NORMAL INSPECTION - Eye Exam Eye Exam: EOMI, PERRLA - ENT Exam ENT Exam: Mucous Membranes Moist, Oral thrush present - Respiratory Exam Respiratory Exam: Clear to PA & Lateral, NORMAL BREATHING PATTERN - Cardiovascular Exam Cardiovascular Exam: REGULAR RHYTHM - GI/Abdominal Exam GI & Abdominal Exam: Soft. absent: Distended, Guarding, Tenderness - Padilla in place - Extremities Exam Extremities exam: normal capillary refill, pedal pulses present - Neurological Exam Neurological exam: Alert, Oriented x3 - Psychiatric Exam Psychiatric exam: Normal Affect, Normal Mood - Skin Skin Exam: Dry, Intact, Warm Additional comments: Results - Vital Signs Recent Vital Signs: Last Vital Signs Temp 97.6 F 09/24/18 15:25 Pulse 104 H 09/24/18 15:25 Resp 22 09/24/18 15:25 BP 152/77 H 09/24/18 15:25 Pulse Ox 95 09/24/18 15:25 - Labs Result Diagrams: 09/24/18 13:30 09/24/18 13:30 Labs: Laboratory Results - last 24 hr 09/24/18 09/24/18 09/24/18 13:30 13:30 13:30 WBC 12.5 H D RBC 4.50 Hgb 13.7 L Hct 40.8 L MCV 90.7 MCH 30.4 MCHC 33.6 RDW 14.9 H Plt Count 129 MPV 9.7 Gran % 96.4 H Lymph % (Auto) 3.3 L [place] % (Auto) 0.3 L Eos % (Auto) 0.0 L Baso % (Auto) 0.0 Gran # 12.02 H Lymph # (Auto) 0.4 L [place] # (Auto) 0.0 L Eos # (Auto) 0.0 Baso # (Auto) 0.00 Neutrophils % (Manual) 96 H Lymphocytes % (Manual) 4 L Monocytes % (Manual) TEST NOT PERFORMED Platelet Evaluation Normal PT 11.5 INR 1.01 APTT 23.9 L pO2 68 H VBG pH 7.46 H VBG pCO2 43.0 VBG HCO3 30.6 H VBG Total CO2 31.9 H VBG O2 Sat (Calc) 95.8 H VBG Base Excess 6.0 H VBG Potassium 4.0 Sodium 148.0 Chloride 112.0 H Glucose 97 Lactate 1.5 FiO2 21.0 Potassium Carbon Dioxide Anion Gap BUN Creatinine Est GFR ( Amer) Est GFR (Non-Af Amer) Random Glucose Calcium Phosphorus Magnesium Total Bilirubin AST ALT Alkaline Phosphatase Troponin I NT-Pro-B Natriuret Pep Total Protein Albumin Globulin Albumin/Globulin Ratio Venous Blood Potassium 4.0 Urine Color Urine Appearance Urine pH Ur Specific [place] Urine Protein Urine Glucose (UA) Urine Ketones Urine Blood Urine Nitrate Urine Bilirubin Urine Urobilinogen Ur Leukocyte Esterase Urine RBC Urine WBC Ur Epithelial Cells Urine Bacteria 09/24/18 09/24/18 13:30 13:57 WBC RBC Hgb Hct MCV MCH MCHC RDW Plt Count MPV Gran % Lymph % (Auto) [place] % (Auto) Eos % (Auto) Baso % (Auto) Gran # Lymph # (Auto) [place] # (Auto) Eos # (Auto) Baso # (Auto) Neutrophils % (Manual) Lymphocytes % (Manual) Monocytes % (Manual) Platelet Evaluation PT INR APTT pO2 VBG pH VBG pCO2 VBG HCO3 VBG Total CO2 VBG O2 Sat (Calc) VBG Base Excess VBG Potassium Sodium 140 Chloride 108 H Glucose Lactate FiO2 Potassium 3.7 Carbon Dioxide 27 Anion Gap 9 L BUN 41 H Creatinine 0.7 L Est GFR ( Amer) > 60 Est GFR (Non-Af Amer) > 60 Random Glucose 97 Calcium 7.9 L Phosphorus 2.4 L Magnesium 2.4 H Total Bilirubin 0.8 AST 28 ALT 35 Alkaline Phosphatase 149 H D Troponin I 0.04 D NT-Pro-B Natriuret Pep 686 H Total Protein 6.2 Albumin 3.2 Globulin 3.0 Albumin/Globulin Ratio 1.1 Venous Blood Potassium Urine Color Yellow Urine Appearance Clear Urine pH 6.0 Ur Specific [place] 1.015 Urine Protein Negative Urine Glucose (UA) Negative Urine Ketones Negative Urine Blood Small H Urine Nitrate Positive H Urine Bilirubin Small H Urine Urobilinogen 0.2 Ur Leukocyte Esterase Small H Urine RBC 0 - 2 Urine WBC 20 - 25 Ur Epithelial Cells 0 - 2 Urine Bacteria Large Assessment & Plan - Assessment and Plan (Free Text) Assessment: 77 year old male, with a past medical history of BPH, neurogenic bladder, UTI's, and lung CA with metastasis to bone (confirmed by biopsy and PET scan) who presents with ? HCAP and UTI. HCAP CXR shows small L pleural effusion with consolidation, L lung spiculated mass f/u Chest CT No fevers or chills Cefepime and Vanc f/u procal pro BNP 686, improved from two weeks prior Hx Lung CA with known metastases F/u CT chest to better characterize L sided mass F/u Palliative Care Recs Hem/Onc Dr. Rodriguez consulted - recs appreciated c/w home Percocet, Lyrica and Decadron Asymptomatic UTI UA + nitrates, small leuk esterase f/u urine cx Elevated Troponin likely demand ischemia vs chemo effects EKG: sinus tach @111 bpm F/u repeat EKG in AM 0.04 compared to 0.02 two weeks ago Trend two more trops No CP, palpitations, dizziness reported Neurogenic bladder Uses self-catheter at home New padilla administered upon admission f/u urine cx GI/DVT PPx Hep SC q8, Pepcid HHD Patient seen, case reviewed and plan approved by Dr. Villar. Michael Felix, PGY-1 <Keny Villar - Last Filed: 09/28/18 15:28> Results - Vital Signs Recent Vital Signs: Last Vital Signs Temp 98.5 F 09/28/18 08:01 Pulse 83 09/28/18 10:00 Resp 20 09/28/18 08:01 BP 129/92 H 09/28/18 09:31 Pulse Ox 95 09/28/18 08:01 - Labs Result Diagrams: 09/28/18 06:20 09/28/18 06:20 Labs: Laboratory Results - last 24 hr 09/28/18 09/28/18 06:20 06:20 WBC 1.4 L* D RBC 3.78 Hgb 11.3 L Hct 34.3 L MCV 90.7 MCH 29.9 MCHC 32.9 RDW 14.7 H Plt Count 75 L MPV 10.0 Gran % 75.9 H Lymph % (Auto) 20.6 L [place] % (Auto) 3.5 Eos % (Auto) 0.0 L Baso % (Auto) 0.0 Gran # 1.07 L Lymph # (Auto) 0.3 L [place] # (Auto) 0.1 Eos # (Auto) 0.0 Baso # (Auto) 0.00 Neutrophils % (Manual) 77 H Lymphocytes % (Manual) 21 L Monocytes % (Manual) 2 Platelet Evaluation Low Sodium 140 Potassium 3.8 Chloride 110 H Carbon Dioxide 24 Anion Gap 9 L BUN 29 H Creatinine 0.5 L Est GFR ( Amer) > 60 Est GFR (Non-Af Amer) > 60 Random Glucose 114 H Calcium 7.6 L Phosphorus 2.0 L Magnesium 2.1 Total Bilirubin 0.6 AST 25 ALT 30 Alkaline Phosphatase 119 Total Protein 5.7 L Albumin 2.9 L Globulin 2.8 Albumin/Globulin Ratio 1.1 Attending/Attestation - Attestation I have personally seen and examined this patient.: Yes I have fully participated in the care of the patient.: Yes I have reviewed all pertinent clinical information: Yes Notes (Text): 09/28/18 15:23 Medical record note made by the resident after discussion with my direction and input after the patient was personally seen and examined by me. I have reviewed the chart and agree that the record accurately reflects by personal performance of the history, physical exam, data review, and medical decision-making, in the course for the patient. I have also personally directed the plan of care. 77 yo male with BPH, neurogenic bladder, stage IV Lung cancer with metastatic disease to bone ,SP chemotherapy, followed by is admitted with weakness, and lose of appetite.There is no focal deficit.Ct chest showed p ossible HCAP Pneumonia.Patient is also having oral thrush.WBC is elevated , Agreed with IV Vancomycin and Cefepime for now.Also started on Nystatin We will check Procalcitonin level and will follow up cultures. We will also get Oncology evaluation. Patient is full code. Prognosis is guarded. Management plan was discussed in detail with patient. Education was provided.
--- NOTE | 2018-09-24 15:38 | CT ---
Date of service: 09/24/2018 CT chest without IV contrast Indication: h/o lung cancer w/ new infiltrate on CXR Technique: Contiguous axial images were obtained through the chest without intravenous contrast enhancement. Sagittal and coronal reconstructions were generated and reviewed. This CT exam was performed using 1 or more of the following dose reduction techniques: Automated exposure control, adjustment of the MAA and/or kV according to patient size, and/or use of iterative reconstruction technique. Radiation dose (DLP): 523.83 MGy-cm. Comparison: CT chest without contrast performed 09/12/18 Findings: Right-sided MediPort extends the right atrium. Visualized portions of the inferior thyroid gland appear unremarkable. The unenhanced mediastinal and hilar vascular structures appear grossly unremarkable. The heart appears within normal limits of size. Small pericardial effusion. Dense atherosclerotic calcifications of the aorta. Dense coronary artery calcifications. Irregular left upper lobe spiculated mass measures approximately 2.0 x 3.6 cm, similar prior study. Emphysematous changes. Mild patchy nodular left upper lobe and lower lobe infiltrates. Small to moderate left pleural effusion with loculated appearance. No visible pneumothorax. Mild right basilar atelectasis. Focal scarring or consolidation contiguous with the left mediastinum. Limited visualization of the noncontrast upper abdomen appears grossly unremarkable. Osseous demineralization. Degenerative changes. Compression fracture deformity of T12. Osseous sclerosis at this level raises suspicion for osseous metastases. Impression: Re-identified irregular left upper lobe spiculated mass measures approximately 2.0 x 3.6 cm, similar prior study. Correlate clinically for malignant neoplasm. Emphysematous changes. Mild patchy nodular left upper lobe and lower lobe infiltrates. Small to moderate left pleural effusion with loculated appearance. Mild right basilar atelectasis. Focal scarring or consolidation contiguous with the left mediastinum. Compression fracture deformity of T12. Osseous sclerosis at this level raises suspicion for osseous metastases. Right-sided MediPort extends the right atrium. Small pericardial effusion.
[2018-09-24] MEDS ORDERED: Oxycodone/Acetaminophen 5/325 mg Tab PO PRN (16:01)
[2018-09-24 16:40] LABS: HDL CHOLESTEROL 54 mg/dL (29-60)
[2018-09-24 16:51] LABS: LDL CHOLESTEROL 138 mg/dL (0-129)
--- NOTE | 2018-09-24 18:31 | CARD ---
APPROVED REPORT Date of service: 09/24/2018 EKG Measurement Heart [id number] <Conclusion> Sinus tachycardia Minimal voltage criteria for LVH, may be normal variant Nonspecific ST and T wave abnormality Abnormal ECG
[2018-09-24] MEDS: Nystatin 100,000 Units/ml Oral Susp 5 ml UD PO SCH ×2 (18:40→22:10)
[2018-09-24] MEDS: Albuterol-Ipratrop 3 mg / 0.5 (3 ml) UD IH SCH (22:00)
[2018-09-24 23:20] VITALS: BMI 25.0
[2018-09-25] MEDS: Albuterol-Ipratrop 3 mg / 0.5 (3 ml) UD IH SCH ×4 (01:17→19:18)
[2018-09-25 07:42] LABS: GRAN # 9.78 (1.4-6.5); GRAN % 97.4 % (50.0-68.0); HEMOGLOBIN 12.3 g/dL (14.0-18.0); LYMPH # 0.2 (1.2-3.4); LYMPH % 2.3 % (22.0-35.0); MEAN CELL VOLUME 90.9 fl (80.0-105.0); MEAN CORPUSCULAR HEMOGLOBIN 30.4 pg (25.0-35.0); MEAN CORPUSCULAR HGB CONC 33.4 g/dl (31.0-37.0); MEAN PLATELET VOLUME 10.2 fl (7.0-11.0); MONO % 0.3 % (1.0-6.0); RBC 4.05 10^6/uL (3.5-6.1); RED CELL DISTRIBUTION WIDTH 14.6 % (11.5-14.5)
[2018-09-25 08:06] LABS: ALB/GLOB RATIO 1.1 (1.1-1.8); ALT/SGPT 30 U/L (7-56); AST/SGOT 26 U/L (17-59); BLOOD UREA NITROGEN 28 mg/dL (7-21); CALCIUM 7.4 mg/dL (8.4-10.5); GFR NON-AFRICAN AMERICAN > 60
--- NOTE | 2018-09-25 09:13 | CP.PCM.CON ---
History of Present Illness - History of Present Illness History of Present Illness: Palliative consult requested by Dr Tamiko Lin Reason: Goals of care 78 year old male who was diagnosed with lung cancer with mets to bone and who received first chemotherapy treatment last week.e is under treatment with Dr Rodriguez. He presents with decreased appetite and generalized weakness. He has chronic midback/lumbar pain.He denies fever,chills, shortness of breath, abdominal /chest pain, nausea, vomiting ,diarrhea, constipation, dizziness. Labs: Wbc12.5, Hgb 13.7,Plt 129, Na 140, K 3.7, Bun 9, Engineering Document Control Clerk 0.7, glucose 97, Ca 7.9, Phos 2.4, Mg 2.4, Alk Phos 149, BNP 686, procalcitionin 0.10, albumin 3.2. Urine + bacteria, small blood Chest x ray: Small left pleural effusion with consolidation. left apical thickening/fluid, left hemo throrax. Spiculated mass within left lung apex. Chest CT: JASON spiculated mass 2.0 X 3., emphysematous changes, nodular JASON with lower infiltrates and small pleural effusion. mild bibasilar atelectasis. Compression deformity T12, osseous metastatic disease, small right pericardial effusion. EKG: Sinus tachycardia, non specific ST/T wave changes PMHx: Lung cancer metastatic to lumbar spine,ribs, hips, DM, neurogenic bladder PSHx:left wrist ORIF, port a cath Social Hsioty: Former heavy smoker >60 pack years, no alcohol or drug use. Lives with spouse. Family History: Non contributory. Advance Care Planning: The patient does not have an Advanced Directive. Review of Systems: As per HPI, denies all other complaints. Past Patient History - Infectious Disease Hx of Infectious Diseases: None - Tetanus Immunizations Tetanus Immunization: Unknown - Past Social History Smoking Status: Former Smoker - CARDIAC Hx Cardiac Disorders: Yes Hx Hypertension: Yes - PULMONARY Hx Respiratory Disorders: Yes Other/Comment: Lung CA - NEUROLOGICAL Hx Neurological Disorder: No - HEENT Hx HEENT Problems: No - RENAL Hx Chronic Kidney Disease: Yes Hx Neurogenic Bladder: Yes - ENDOCRINE/METABOLIC Hx Endocrine Disorders: Yes Hx Diabetes Mellitus Type 2: Yes - HEMATOLOGICAL/ONCOLOGICAL Hx Blood Disorders: Yes Hx Cancer: Yes Hx Chemotherapy: Yes - INTEGUMENTARY Hx Dermatological Problems: No - MUSCULOSKELETAL/RHEUMATOLOGICAL Hx Falls: Yes Hx Unsteady Gait: Yes - GASTROINTESTINAL Hx Gastrointestinal Disorders: No - GENITOURINARY/GYNECOLOGICAL Hx Genitourinary Disorders: Yes (NEUROGENIC BLADDER,UROSEPSIS,CHRONIC URINARY RETENTION,BPH) Hx Urinary Tract Infection: Yes - PSYCHIATRIC Hx Psychophysiologic Disorder: No - SURGICAL HISTORY Hx Surgeries: Yes Other/Comment: carotid endarterectomy - ANESTHESIA Hx Anesthesia: Yes Hx Anesthesia Reactions: No Hx Malignant Hyperthermia: No Meds Allergies/Adverse Reactions: Allergies Allergy/AdvReac Type Severity Reaction Status Date / Time No Known Allergies Allergy Verified 09/24/18 12:29 - Medications Medications: Current Medications Albuterol/Ipratropium (Duoneb 3 Mg/0.5 Mg (3 Ml) Ud) 3 ml IH Q2H PRN PRN Reason: Shortness of Breath Albuterol/Ipratropium (Duoneb 3 Mg/0.5 Mg (3 Ml) Ud) 3 ml IH [id number] [facility] Last Admin: 09/25/18 07:55 Dose: 3 ml Dexamethasone (Decadron) 4 mg PO QID [facility] Last Admin: 09/24/18 22:10 Dose: 4 mg Famotidine (Pepcid) 40 mg PO HS [facility] Last Admin: 09/24/18 22:10 Dose: 40 mg Folic Acid (Folic Acid) 1 mg PO DAILY [facility] Heparin Sodium (Porcine) (Heparin) 5,000 units SC Q8 [facility]; Protocol Last Admin: 09/25/18 06:38 Dose: 5,000 units Cefepime HCl (Maxipime 2gm) 2 gm in 100 mls @ 100 mls/hr IVPB Q12 [facility]; Protocol Stop: 09/30/18 10:01 Vancomycin HCl (Vancomycin 1gm) 1 gm in 250 mls @ 167 mls/hr IVPB DAILY [facility]; Protocol Nystatin (Nystatin Oral Susp) 5 ml PO QID [facility] Last Admin: 09/24/18 22:10 Dose: 5 ml Oxycodone/Acetaminophen (Percocet 5/325 Mg Tab) 1 tab PO BID PRN PRN Reason: Pain, severe (8-10) Stop: 09/27/18 16:02 Pregabalin (Lyrica) 50 mg PO TID [facility] Last Admin: 09/24/18 18:19 Dose: 50 mg Physical Exam - Constitutional Appears: Cachectic, Chronically Ill - Head Exam Head Exam: NORMOCEPHALIC - Eye Exam Eye Exam: Normal appearance, PERRL - ENT Exam ENT Exam: Mucous Membranes Moist, Normal Oropharynx - Neck Exam Neck exam: Positive for: Normal Inspection - Respiratory Exam Respiratory Exam: Decreased Breath Sounds, Rhonchi, NORMAL BREATHING PATTERN - Cardiovascular Exam Cardiovascular Exam: Tachycardia, +S1, +S2 - GI/Abdominal Exam GI & Abdominal Exam: Hypoactive Bowel Sounds, Soft - Extremities Exam Extremities exam: Positive for: pedal edema, pedal pulses present - Back Exam Back exam: vertebral tenderness Additional comments: pressure ulcer left buttock - Neurological Exam Neurological exam: Alert - Psychiatric Exam Psychiatric exam: Flat Affect - Skin Skin Exam: Dry, Pallor - Additional Findings Additional findings: Palliative performance scale rating 40 Results - Vital Signs Recent Vital Signs: Last Vital Signs Temp 97.9 F 09/24/18 20:20 Pulse 92 H 09/25/18 06:00 Resp 18 09/24/18 21:35 BP 135/76 09/24/18 20:20 Pulse Ox 96 09/24/18 20:20 - Labs Result Diagrams: 09/25/18 07:00 09/25/18 07:00 Labs: Laboratory Results - last 24 hr 09/24/18 09/24/18 09/24/18 13:30 13:30 13:30 WBC 12.5 H D RBC 4.50 Hgb 13.7 L Hct 40.8 L MCV 90.7 MCH 30.4 MCHC 33.6 RDW 14.9 H Plt Count 129 MPV 9.7 Gran % 96.4 H Lymph % (Auto) 3.3 L [place] % (Auto) 0.3 L Eos % (Auto) 0.0 L Baso % (Auto) 0.0 Gran # 12.02 H Lymph # (Auto) 0.4 L [place] # (Auto) 0.0 L Eos # (Auto) 0.0 Baso # (Auto) 0.00 Neutrophils % (Manual) 96 H Lymphocytes % (Manual) 4 L Monocytes % (Manual) TEST NOT PERFORMED Platelet Evaluation Normal PT 11.5 INR 1.01 APTT 23.9 L pO2 68 H VBG pH 7.46 H VBG pCO2 43.0 VBG HCO3 30.6 H VBG Total CO2 31.9 H VBG O2 Sat (Calc) 95.8 H VBG Base Excess 6.0 H VBG Potassium 4.0 Sodium 148.0 Chloride 112.0 H Glucose 97 Lactate 1.5 FiO2 21.0 Potassium Carbon Dioxide Anion Gap BUN Creatinine Est GFR ( Amer) Est GFR (Non-Af Amer) Random Glucose Hemoglobin A1c Calcium Phosphorus Magnesium Total Bilirubin AST ALT Alkaline Phosphatase Troponin I NT-Pro-B Natriuret Pep Total Protein Albumin Globulin Albumin/Globulin Ratio Triglycerides Cholesterol LDL Cholesterol Direct HDL Cholesterol Procalcitonin Venous Blood Potassium 4.0 Urine Color Urine Appearance Urine pH Ur Specific [place] Urine Protein Urine Glucose (UA) Urine Ketones Urine Blood Urine Nitrate Urine Bilirubin Urine Urobilinogen Ur Leukocyte Esterase Urine RBC Urine WBC Ur Epithelial Cells Urine Bacteria 09/24/18 09/24/18 09/24/18 13:30 13:30 13:30 WBC RBC Hgb Hct MCV MCH MCHC RDW Plt Count MPV Gran % Lymph % (Auto) Child[place] % (Auto) Eos % (Auto) Baso % (Auto) Gran # Lymph # (Auto) [place] # (Auto) Eos # (Auto) Baso # (Auto) Neutrophils % (Manual) Lymphocytes % (Manual) Monocytes % (Manual) Platelet Evaluation PT INR APTT pO2 VBG pH VBG pCO2 VBG HCO3 VBG Total CO2 VBG O2 Sat (Calc) VBG Base Excess VBG Potassium Sodium 140 Chloride 108 H Glucose Lactate FiO2 Potassium 3.7 Carbon Dioxide 27 Anion Gap 9 L BUN 41 H Creatinine 0.7 L Est GFR ( Amer) > 60 Est GFR (Non-Af Amer) > 60 Random Glucose 97 Hemoglobin A1c 6.5 Calcium 7.9 L Phosphorus 2.4 L Magnesium 2.4 H Total Bilirubin 0.8 AST 28 ALT 35 Alkaline Phosphatase 149 H D Troponin I 0.04 D NT-Pro-B Natriuret Pep 686 H Total Protein 6.2 Albumin 3.2 Globulin 3.0 Albumin/Globulin Ratio 1.1 Triglycerides 382 H Cholesterol 268 H LDL Cholesterol Direct 138 H HDL Cholesterol 54 Procalcitonin Venous Blood Potassium Urine Color Urine Appearance Urine pH Ur Specific [place] Urine Protein Urine Glucose (UA) Urine Ketones Urine Blood Urine Nitrate Urine Bilirubin Urine Urobilinogen Ur Leukocyte Esterase Urine RBC Urine WBC Ur Epithelial Cells Urine Bacteria 09/24/18 09/24/18 09/24/18 13:30 13:57 20:20 WBC RBC Hgb Hct MCV MCH MCHC RDW Plt Count MPV Gran % Lymph % (Auto) [place] % (Auto) Eos % (Auto) Baso % (Auto) Gran # Lymph # (Auto) [place] # (Auto) Eos # (Auto) Baso # (Auto) Neutrophils % (Manual) Lymphocytes % (Manual) Monocytes % (Manual) Platelet Evaluation PT INR APTT pO2 VBG pH VBG pCO2 VBG HCO3 VBG Total CO2 VBG O2 Sat (Calc) VBG Base Excess VBG Potassium Sodium Chloride Glucose Lactate FiO2 Potassium Carbon Dioxide Anion Gap BUN Creatinine Est GFR ( Amer) Est GFR (Non-Af Amer) Random Glucose Hemoglobin A1c Calcium Phosphorus Magnesium Total Bilirubin AST ALT Alkaline Phosphatase Troponin I 0.04 NT-Pro-B Natriuret Pep Total Protein Albumin Globulin Albumin/Globulin Ratio Triglycerides Cholesterol LDL Cholesterol Direct HDL Cholesterol Procalcitonin 0.10 L Venous Blood Potassium Urine Color Yellow Urine Appearance Clear Urine pH 6.0 Ur Specific [place] 1.015 Urine Protein Negative Urine Glucose (UA) Negative Urine Ketones Negative Urine Blood Small H Urine Nitrate Positive H Urine Bilirubin Small H Urine Urobilinogen 0.2 Ur Leukocyte Esterase Small H Urine RBC 0 - 2 Urine WBC 20 - 25 Ur Epithelial Cells 0 - 2 Urine Bacteria Large 09/25/18 09/25/18 09/25/18 02:05 07:00 07:00 WBC 10.0 RBC 4.05 Hgb 12.3 L Hct 36.8 L MCV 90.9 MCH 30.4 MCHC 33.4 RDW 14.6 H Plt Count 119 L MPV 10.2 Gran % 97.4 H Lymph % (Auto) 2.3 L [place] % (Auto) 0.3 L Eos % (Auto) 0.0 L Baso % (Auto) 0.0 Gran # 9.78 H Lymph # (Auto) 0.2 L [place] # (Auto) 0.0 L Eos # (Auto) 0.0 Baso # (Auto) 0.00 Neutrophils % (Manual) Lymphocytes % (Manual) Monocytes % (Manual) Platelet Evaluation PT INR APTT pO2 VBG pH VBG pCO2 VBG HCO3 VBG Total CO2 VBG O2 Sat (Calc) VBG Base Excess VBG Potassium Sodium 140 Chloride 110 H Glucose Lactate FiO2 Potassium 3.7 Carbon Dioxide 25 Anion Gap 8 L BUN 28 H Creatinine 0.6 L Est GFR ( Amer) > 60 Est GFR (Non-Af Amer) > 60 Random Glucose 136 H Hemoglobin A1c Calcium 7.4 L Phosphorus 2.2 L Magnesium 2.3 H Total Bilirubin 0.5 AST 26 ALT 30 Alkaline Phosphatase 133 H Troponin I 0.04 NT-Pro-B Natriuret Pep Total Protein 5.8 Albumin 3.0 Globulin 2.8 Albumin/Globulin Ratio 1.1 Triglycerides Cholesterol LDL Cholesterol Direct HDL Cholesterol Procalcitonin Venous Blood Potassium Urine Color Urine Appearance Urine pH Ur Specific [place] Urine Protein Urine Glucose (UA) Urine Ketones Urine Blood Urine Nitrate Urine Bilirubin Urine Urobilinogen Ur Leukocyte Esterase Urine RBC Urine WBC Ur Epithelial Cells Urine Bacteria Assessment & Plan - Assessment and Plan (Free Text) Assessment: 78 year old male with history of DM and metestetsuc lung cancer s/p first chemotherapy last week who presented with weakness, decreased appetite. The patient is known to me from previous admission(08/27) During that visit go als of care and advance care planning were discussed. The patient was intent on starting chemotherapy. He elected not to do and advanced directive at that time The patient is alert, affect flat. Answers questions but does not engage in conversation. at bedside, states he has been to weak to do ADL's and affirms that his appetite is poor. Goals of care discussed, hoping that he will be able to continue treatment. The patient is not comitial about continuing chemotherapy. Advance care planning discussion revisited. Although the patient indicated he does not want a "machines", he is not willing to complete POLST at this time. Time spent with patient and in goals of care advance care planning, 30 minutes Plan: Goals of care and advance care planning Pleural effusion, r/o pneumonia: On Vancomycin and Cefepime. Pain Management: Oxycodone/acetaminophen as needed, Decadron, Lyrica. Will add Colace daily. Would consider adding Remeron daily for appetite and mood enhancement Lung cancer: Will follow up with Dr Rodriguez.
--- NOTE | 2018-09-25 09:36 | CARD ---
APPROVED REPORT Date of service: 09/25/2018 EKG Measurement Heart [id number] <Conclusion> Sinus tachycardia LVH NSSTW changes Artifact present Probably no change
[2018-09-25] MEDS: Nystatin 100,000 Units/ml Oral Susp 5 ml UD PO SCH ×4 (09:53→22:30)
[2018-09-25] MEDS: Vancomycin 1gm in NS 250ml 1 GM/250 ML BAG IVPB SCH (09:54)
[2018-09-25] MEDS: Cefepime IV 2 gm in NS 2 GM/100 ML BAG IVPB SCH ×2 (12:45→22:34)
--- NOTE | 2018-09-25 13:42 | CP.PCM.PN ---
<Amita Zaman - Last Filed: 09/25/18 13:38> Subjective - Date & Time of Evaluation Date of Evaluation: 09/25/18 Time of Evaluation: 11:00 - Subjective Subjective: Amita Zaman Y1 Hospital Progress Note Patient seen and examined at bedside this morning. Patient was tachycardic during the morning. Started on lopressor 25mg BID. Will switch to oral antibiotics tomorrow. Patient states he has no appetite. Otherwise slept well and has no new complaints today. Denies CP, SOB, abdominal pain and headaches. Objective - Vital Signs/Intake and Output Vital Signs (last 24 hours): Temp Pulse Resp BP Pulse Ox 97.9 F 70 18 130/70 96 09/24/18 20:20 09/25/18 12:43 09/24/18 21:35 09/25/18 12:43 09/24/18 20:20 Intake and Output: 09/25/18 09/25/18 06:59 18:59 Output Total 2800 Balance -2800 - Medications Medications: Current Medications Albuterol/Ipratropium (Duoneb 3 Mg/0.5 Mg (3 Ml) Ud) 3 ml IH Q2H PRN PRN Reason: Shortness of Breath Albuterol/Ipratropium (Duoneb 3 Mg/0.5 Mg (3 Ml) Ud) 3 ml IH [id number] [facility] Last Admin: 09/25/18 13:30 Dose: 3 ml Dexamethasone (Decadron) 4 mg PO QID [facility] Last Admin: 09/25/18 09:53 Dose: 4 mg Docusate Sodium (Colace) 100 mg PO DAILY [facility] Famotidine (Pepcid) 40 mg PO HS [facility] Last Admin: 09/24/18 22:10 Dose: 40 mg Folic Acid (Folic Acid) 1 mg PO DAILY [facility] Last Admin: 09/25/18 09:53 Dose: 1 mg Heparin Sodium (Porcine) (Heparin) 5,000 units SC Q8 [facility]; Protocol Last Admin: 09/25/18 06:38 Dose: 5,000 units Cefepime HCl (Maxipime 2gm) 2 gm in 100 mls @ 100 mls/hr IVPB Q12 [facility]; Protocol Stop: 09/30/18 10:01 Last Admin: 09/25/18 12:45 Dose: 100 mls/hr Vancomycin HCl (Vancomycin 1gm) 1 gm in 250 mls @ 167 mls/hr IVPB DAILY [facility]; Protocol Last Admin: 09/25/18 09:54 Dose: 167 mls/hr Metoprolol Tartrate (Lopressor) 25 mg PO BID [facility] Last Admin: 09/25/18 12:43 Dose: 25 mg Nystatin (Nystatin Oral Susp) 5 ml PO QID [facility] Last Admin: 09/25/18 09:53 Dose: 5 ml Oxycodone/Acetaminophen (Percocet 5/325 Mg Tab) 1 tab PO BID PRN PRN Reason: Pain, severe (8-10) Stop: 09/27/18 16:02 Pregabalin (Lyrica) 50 mg PO TID [facility] Last Admin: 09/25/18 09:53 Dose: 50 mg - Labs Labs: 09/25/18 07:00 09/25/18 07:00 PT 11.5 SECONDS (9.4-12.5) 09/24/18 13:30 INR 1.01 09/24/18 13:30 APTT 23.9 Seconds (25.1-36.5) L 09/24/18 13:30 - Additional Findings Additional findings: - Head Exam Head Exam: NORMAL INSPECTION - Eye Exam Eye Exam: EOMI, PERRLA - ENT Exam ENT Exam: Mucous Membranes Moist, Oral thrush present - Respiratory Exam Respiratory Exam: Clear to PA & Lateral, NORMAL BREATHING PATTERN, no wheezing or respiratory distress - Cardiovascular Exam Cardiovascular Exam: REGULAR RHYTHM - GI/Abdominal Exam GI & Abdominal Exam: Soft. absent: Distended, Guarding, Tenderness - Padilla in place draining yellow fluid - Extremities Exam Extremities exam: normal capillary refill, pedal pulses present - Neurological Exam Neurological exam: Alert, Oriented x3 - Psychiatric Exam Psychiatric exam: Normal Affect, Normal Mood - Skin Skin Exam: Dry, Intact, Warm Assessment and Plan - Assessment and Plan (Free Text) Assessment: Assessment: 77 year old male, with a past medical history of BPH, neurogenic bladder, UTI's, and lung CA with metastasis to bone (confirmed by biopsy and PET scan) who presents with questionable HCAP and UTI. Plan: HCAP -CXR shows small L pleural effusion with consolidation, L lung spiculated mass -Chest CT shows left upper lobe mass, similar to prior study. Left upper lobe and lower lobe infiltrates. Moderate left plural effusion. T12 osseous sclerosis suspicious for mets -Cefepime and Vanc day 2 -will switch to PO antibiotics tomorrow -procal is unremarkable Hx Lung CA with known metastases -Chest CT shows left upper lobe mass, similar to prior study. Left upper lobe and lower lobe infiltrates. Moderate left plural effusion. T12 osseous sclerosis suspicious for mets -per palliative care, will consider adding remeron for appetite and mood enhancement. Continuing current pain regiment, adding colace. -Hem/Onc Dr. Rodriguez on consult -continue with home Percocet, Lyrica and Decadron. Percocet BID prn Taccycardia -unknown etiology -TSH pending -cardiology on consult -lopressor 25mg BID -consider demand ischemia vs chemo effects for mild troponin increase -EKG today shows ST at 109, no change from prior -trops x 3 are unremarkable Asymptomatic UTI -UA + nitrates, small leuk esterase -urine cx shows gram - alisson, awaiting final growth -currently on cefipime and vanc Neurogenic bladder -uses self-catheter at home -continue padilla catheter, draining yellow fluid -urine cx positive, on antibiotics PPX/Diet -pepcid, heparin -HHD Patient seen and case reviewed with attending, Dr. Villar. <Keny Villar - Last Filed: 09/28/18 15:30> Objective - Vital Signs/Intake and Output Vital Signs (last 24 hours): Temp Pulse Resp BP Pulse Ox 98.5 F 83 20 129/92 H 95 09/28/18 08:01 09/28/18 10:00 09/28/18 08:01 09/28/18 09:31 09/28/18 08:01 Intake and Output: 09/28/18 09/28/18 06:59 18:59 Intake Total 240 Output Total 200 Balance 40 - Medications Medications: Current Medications Albuterol/Ipratropium (Duoneb 3 Mg/0.5 Mg (3 Ml) Ud) 3 ml IH Q2H PRN PRN Reason: Shortness of Breath Last Admin: 09/25/18 23:13 Dose: 3 ml Albuterol/Ipratropium (Duoneb 3 Mg/0.5 Mg (3 Ml) Ud) 3 ml IH [id number] [id number] Last Admin: 09/28/18 13:49 Dose: Not Given Dexamethasone (Decadron) 4 mg PO Q8 [facility] Last Admin: 09/28/18 13:58 Dose: 4 mg Docusate Sodium (Colace) 100 mg PO DAILY [facility] Last Admin: 09/28/18 09:30 Dose: 100 mg Famotidine (Pepcid) 40 mg PO HS [facility] Last Admin: 09/27/18 21:52 Dose: 40 mg Fentanyl (Duragesic) 1 patch TD Q72H [facility] Last Admin: 09/27/18 15:36 Dose: 1 patch Folic Acid (Folic Acid) 1 mg PO DAILY [facility] Last Admin: 09/28/18 09:34 Dose: 1 mg Heparin Sodium (Porcine) (Heparin) 5,000 units SC Q8 [facility]; Protocol Last Admin: 09/28/18 05:48 Dose: 5,000 units Meropenem/Sodium Chloride (Merrem Iv 500 Mg/Ns 50 Ml) 500 mg in 50 mls @ 100 mls/hr IVPB Q8 [facility]; Protocol Last Admin: 09/28/18 12:35 Dose: 100 mls/hr Lactated Ringer's (Lactated Ringer's) 1,000 mls @ 50 mls/hr IV .Q20H [facility] Last Admin: 09/27/18 22:27 Dose: 50 mls/hr Metoprolol Tartrate (Lopressor) 25 mg PO BID [facility] Last Admin: 09/28/18 09:31 Dose: 25 mg Nystatin (Nystatin Oral Susp) 5 ml PO QID [facility] Last Admin: 09/28/18 13:59 Dose: 5 ml Pregabalin (Lyrica) 50 mg PO TID [facility] Last Admin: 09/28/18 14:00 Dose: 50 mg - Labs Labs: 09/28/18 06:20 09/28/18 06:20 PT 11.5 SECONDS (9.4-12.5) 09/24/18 13:30 INR 1.01 09/24/18 13:30 APTT 23.9 Seconds (25.1-36.5) L 09/24/18 13:30 Attending/Attestation - Attestation I have personally seen and examined this patient.: Yes I have fully participated in the care of the patient.: Yes I have reviewed all pertinent clinical information, including history, physical exam and plan: Yes Notes (Text): 09/28/18 15:28 Medical record note made by the resident after discussion with my direction and input after the patient was personally seen and examined by me. I have reviewed the chart and agree that the record accurately reflects by personal performance of the history, physical exam, data review, and medical decision-making, in the course for the patient. I have also personally directed the plan of care. 77 yo male with BPH, neurogenic bladder, stage IV Lung cancer with metastatic disease to bone ,SP chemotherapy, followed by was admitted with weakne ss, and lose of appetite.There was no focal deficit.CT chest showed possible HCAP Pneumonia.Patient is also having oral thrush.WBC is elevated , UA is suggestive of UTI. Continue IV Vancomycin and Cefepime . We will follow up cultures. ation. Patient is full code. Prognosis is guarded.
[2018-09-25] MEDS: Albuterol-Ipratrop 3 mg / 0.5 (3 ml) UD IH PRN (23:13)
[2018-09-26] MEDS: Albuterol-Ipratrop 3 mg / 0.5 (3 ml) UD IH SCH ×4 (01:23→20:54)
--- NOTE | 2018-09-26 04:10 | CON ---
DATE: 09/25/2018 HISTORY OF PRESENT ILLNESS: The patient is a 78-year-old male with no formal psychiatric history, however, has multiple medical issues including lung cancer with metastasis to the spine, ribs and hips, who has been treated medically after presenting to the ER for weakness, lack of appetite and decreased communication and engagement with his . Psychiatry was consulted because of possible depression. I met with the patient at bedside and I also spoke with his , Nelly Cruz, and the patient gave permission to speak with his . The patient is disoriented. He indicated that he is at [facility] and he guess that it is currently [place]. He does not know why he was hospitalized and he does not have in-depth appreciation of his current circumstances, however, he is aware of his diagnosis. The patient indicates that he is depressed, but he does not want to , he wants to live, he has his girlfriend, but he is aware that he is confused and for the reason why he is depressed because he does not know what is going on, he keeps forgetting of what is going on. He would respond to questions about why he is not eating, although I do believe he indicated he does not have much appetite. indicated that he argues with her when she tries to encourage him to eat or engage further with her. He does not appear to want her around, but he is very different from his baseline. She states no incidents, this started after chemotherapy a few days ago. The patient's also confirms that his current disorientation is not indicative, otherwise, he is at baseline. The patient does not appear to be hallucinating and patient denies any perceptual disturbance, confirms this; however, it is clear that he is disoriented. His insight and judgement are poor at this time. PSYCHIATRIC HISTORY: The patient never had any formal psychiatric history. SOCIAL HISTORY: The patient resides with his , Nelly Cruz, and has four adult daughters; two of which live with them as well as a son-in-law lives with them. No drugs or alcohol dependency is noted. Vital signs and labs were reviewed by this provider. MEDICATIONS: Relevant psychiatric medications; patient does not appear to be prescribed any psychiatric medications at this time. Please refer to MAR for full medication list. IMPRESSION: Depression, not otherwise specified, likely contribution of adjustment disorder with mixed depression and anxiety. 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 RECOMMENDATIONS: I discussed with at length and the patient is in agreement that starting SSRI at this time to help with depression. After some discussion, I have chosen Lexapro 5 mg at bedtime to start today at night. I discussed indication therapeutic latency, probable side effects. I also wrote the name of the medication down for and . This medication was chosen because Lexapro/Celexa known to have minimal interactions with other medications and the patient's had verbalized concern about med-med interactions. Thought patient could benefit from, I did not chose the Remeron as this medication can be associated with dizziness, fainting spells, weakness, which might exacerbate the patient's current symptoms. In addition, patient does not have any difficulty with sleep (per 's history). Paxil was not chosen due to anticholinergic properties that can worsen the confusion . This was explained to the patient and , although seems to understand, patient seems to understand as well but I have doubt as to whether he will recall a lot of our conversation. Psychiatry will continue to follow up. Next followup will be 09/26/[address] Alanis. Maria Luz Kwon MD
[2018-09-26 07:15] LABS: EOS % 0.1 % (1.5-5.0); GRAN # 6.52 (1.4-6.5); LYMPH # 0.4 (1.2-3.4); LYMPH % 5.8 % (22.0-35.0); MEAN CELL VOLUME 91.2 fl (80.0-105.0); MEAN CORPUSCULAR HEMOGLOBIN 30.1 pg (25.0-35.0); MEAN PLATELET VOLUME 10.3 fl (7.0-11.0); MONO % 0.1 % (1.0-6.0); RBC 3.99 10^6/uL (3.5-6.1); WHITE BLOOD COUNT 6.9 10^3/uL (4.5-11.0)
[2018-09-26 07:43] LABS: ALB/GLOB RATIO 1.1 (1.1-1.8); ALT/SGPT 34 U/L (7-56); AST/SGOT 25 U/L (17-59); BLOOD UREA NITROGEN 28 mg/dL (7-21); CALCIUM 7.6 mg/dL (8.4-10.5); GFR NON-AFRICAN AMERICAN > 60
[2018-09-26] MEDS: Vancomycin 1gm in NS 250ml 1 GM/250 ML BAG IVPB SCH (09:29)
[2018-09-26] MEDS: Nystatin 100,000 Units/ml Oral Susp 5 ml UD PO SCH ×3 (09:30→21:45)
--- NOTE | 2018-09-26 11:03 | CARD ---
APPROVED REPORT Date of service: 09/25/2018 EKG Measurement Heart [id number] 120P [id number] <Conclusion> Sinus tachycardia with premature atrial complexes Low voltage QRS limb leads PRWP NSSTW changes
[2018-09-26] MEDS: Cefepime IV 2 gm in NS 2 GM/100 ML BAG IVPB SCH ×2 (11:24→21:44)
--- NOTE | 2018-09-26 11:41 | CARD ---
APPROVED REPORT Date of service: 09/26/2018 EKG Measurement Heart [id number] <Conclusion> Sinus tachycardia Nonspecific T wave abnormality Prolonged QTc No change
--- NOTE | 2018-09-26 12:38 | CON ---
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 He has just been diagnosed recently and we gave his first dose of chemotherapy of Taxotere and carboplatin regimen. He is now admitted to the hospital for increasing shortness of breath, phlegm and found to have his CAT scan here. The 3 x 6 cm left upper lobe spiculated mass which is the cancer, emphysema and patchy infiltrates in the left upper and lower lobes with pleural effusion on the left side and this is all secondary to the infection. PHYSICAL EXAMINATION: SKIN: No petechiae. No bruises. HEENT: Anicteric. NODES: None palpable in the axillary, cervical, and supraclavicular regions. LUNGS: Some scattered wheezing, but he is able to lie flat in bed now and he says he is breathing much better. HEART: S1, S2. ABDOMEN: No liver. No spleen. No tenderness. EXTREMITIES: No edema. CENTRAL NERVOUS SYSTEM: No focal finding. LABORATORY DATA: The white cells are down from 12.5 to 10, hemoglobin stable at 12.3, platelet count 119, his oxygen level is 68 and his BUN which was 41 went down to 28. ASSESSMENT AND PLAN: So there was severe dehydration as well here. I told him that after his infections resolve, hopefully this week, he will be able to go home before [place]. He just had his birthday just a week or two ago and as an outpatient once he is home we will probably restart his chemotherapy next week as an outpatient right after [place], but this was unrelated to the chemotherapy. This was basically due to his emphysema and infection probably post obstructive. So at this point we are going to continue his chemotherapy once he is more stable, hopefully by next week. Jax Rodriguez MD
--- NOTE | 2018-09-26 14:08 | CP.PCM.PN ---
<Amita Zaman - Last Filed: 09/26/18 14:03> Subjective - Date & Time of Evaluation Date of Evaluation: 09/26/18 Time of Evaluation: 09:45 - Subjective Subjective: Amita Zaman PGY1 Hospital Progress Note Patient seen and examined at bedside this morning. No acute events overnight. He is continuing to have minimal appetite. We will try ensure. Denies any complaints or pain at this time including CP, SOB, back pain and abdominal pain. Family is discussing discharge to [facility] vs home. Objective - Vital Signs/Intake and Output Vital Signs (last 24 hours): Temp Pulse Resp BP Pulse Ox 97.6 F 110 H 20 160/95 H 97 09/26/18 08:46 09/26/18 10:00 09/26/18 08:46 09/26/18 09:28 09/26/18 08:46 Intake and Output: 09/26/18 09/26/18 06:59 18:59 Output Total 500 Balance -500 - Medications Medications: Current Medications Albuterol/Ipratropium (Duoneb 3 Mg/0.5 Mg (3 Ml) Ud) 3 ml IH Q2H PRN PRN Reason: Shortness of Breath Last Admin: 09/25/18 23:13 Dose: 3 ml Albuterol/Ipratropium (Duoneb 3 Mg/0.5 Mg (3 Ml) Ud) 3 ml IH [id number] [facility] Last Admin: 09/26/18 13:41 Dose: 3 ml Dexamethasone (Decadron) 4 mg PO Q8H [facility] Last Admin: 09/26/18 11:24 Dose: 4 mg Docusate Sodium (Colace) 100 mg PO DAILY [facility] Last Admin: 09/26/18 09:28 Dose: 100 mg Famotidine (Pepcid) 40 mg PO HS [facility] Last Admin: 09/25/18 22:30 Dose: 40 mg Folic Acid (Folic Acid) 1 mg PO DAILY [facility] Last Admin: 09/26/18 09:28 Dose: 1 mg Heparin Sodium (Porcine) (Heparin) 5,000 units SC Q8 [facility]; Protocol Last Admin: 09/26/18 05:42 Dose: 5,000 units Cefepime HCl (Maxipime 2gm) 2 gm in 100 mls @ 100 mls/hr IVPB Q12 [facility]; Protocol Stop: 09/30/18 10:01 Last Admin: 09/26/18 11:24 Dose: 100 mls/hr Metoprolol Tartrate (Lopressor) 25 mg PO BID [facility] Last Admin: 09/26/18 09:28 Dose: 25 mg Nystatin (Nystatin Oral Susp) 5 ml PO QID [facility] Last Admin: 09/26/18 09:30 Dose: 5 ml Oxycodone/Acetaminophen (Percocet 5/325 Mg Tab) 1 tab PO BID PRN PRN Reason: Pain, severe (8-10) Stop: 09/27/18 16:02 Last Admin: 09/25/18 22:30 Dose: 1 tab Pregabalin (Lyrica) 50 mg PO TID [facility] Last Admin: 09/26/18 09:27 Dose: 50 mg - Labs Labs: 09/26/18 07:00 09/26/18 07:00 PT 11.5 SECONDS (9.4-12.5) 09/24/18 13:30 INR 1.01 09/24/18 13:30 APTT 23.9 Seconds (25.1-36.5) L 09/24/18 13:30 - Additional Findings Additional findings: - Head Exam Head Exam: NORMAL INSPECTION - Eye Exam Eye Exam: EOMI, PERRLA - ENT Exam ENT Exam: Mucous Membranes Moist, Oral thrush present - Respiratory Exam Respiratory Exam: Clear to PA & Lateral, NORMAL BREATHING PATTERN, no wheezing or respiratory distress, rales, rhonchi - Cardiovascular Exam Cardiovascular Exam: REGULAR RHYTHM, S1 and S2 present - GI/Abdominal Exam GI & Abdominal Exam: Soft. absent: Distended, Guarding, Tenderness - Padilla in place draining yellow fluid - Extremities Exam Extremities exam: normal capillary refill, pedal pulses present - Neurological Exam Neurological exam: Alert, Oriented x3 - Psychiatric Exam Psychiatric exam: Normal Affect, Normal Mood - Skin Skin Exam: Dry, Intact, Warm Assessment and Plan - Assessment and Plan (Free Text) Assessment: 77 year old male, with a past medical history of BPH, neurogenic bladder, UTI's, and lung CA with metastasis to bone (confirmed by biopsy and PET scan) who presents with questionable HCAP and UTI. Plan: HCAP -CXR shows small L pleural effusion with consolidation, L lung spiculated mass -Chest CT shows left upper lobe mass, similar to prior study. Left upper lobe and lower lobe infiltrates. Moderate left plural effusion. T12 osseous sclerosis suspicious for mets -Cefepime day 3, discontinued vancomycin today -will do oral antibiotics tomorrow -will switch to PO antibiotics tomorrow -procal is unremarkable -will taper down decadron: 4mg q8 x3 days (today is day 1 out of 3), then 4mg q12 x 3 days, then 4mg daily daily for 3 days, then 2mg daily for 3 days. Hx Lung CA with known metastases -Chest CT shows left upper lobe mass, similar to prior study. Left upper lobe and lower lobe infiltrates. Moderate left plural effusion. T12 osseous sclerosis suspicious for mets -per psych, started lexapro -Hem/Onc Dr. Rodriguez on consult -continue with home Percocet, Lyrica and Decadron. Percocet BID prn -per discussion with family, they are deciding between home discharge and [facility] -ensure diet Taccycardia -unknown etiology, HR 100-110 -TSH WNL -cardiology on consult -lopressor 25mg BID -consider demand ischemia vs chemo effects for mild troponin increase -EKG 09/[address] at 109, no change from prior -trops x 3 are unremarkable Asymptomatic UTI -UA + nitrates, small leuk esterase -urine cx shows gram - alisson, awaiting final growth -continue cefepime, awaiting culture sensitivities Neurogenic bladder -uses self-catheter at home -continue padilla catheter, draining yellow fluid -urine cx positive, on antibiotics PPX/Diet -pepcid, heparin -HHD Patient seen and case reviewed with attending, Dr. Villar <Keny Villar - Last Filed: 09/28/18 15:37> Objective - Vital Signs/Intake and Output Vital Signs (last 24 hours): Temp Pulse Resp BP Pulse Ox 98.5 F 83 20 129/92 H 95 09/28/18 08:01 09/28/18 10:00 09/28/18 08:01 09/28/18 09:31 09/28/18 08:01 Intake and Output: 09/28/18 09/28/18 06:59 18:59 Intake Total 240 Output Total 200 Balance 40 - Medications Medications: Current Medications Albuterol/Ipratropium (Duoneb 3 Mg/0.5 Mg (3 Ml) Ud) 3 ml IH Q2H PRN PRN Reason: Shortness of Breath Last Admin: 09/25/18 23:13 Dose: 3 ml Albuterol/Ipratropium (Duoneb 3 Mg/0.5 Mg (3 Ml) Ud) 3 ml IH [id number] [facility] Last Admin: 09/28/18 13:49 Dose: Not Given Dexamethasone (Decadron) 4 mg PO Q8 [facility] Last Admin: 09/28/18 13:58 Dose: 4 mg Docusate Sodium (Colace) 100 mg PO DAILY [facility] Last Admin: 09/28/18 09:30 Dose: 100 mg Famotidine (Pepcid) 40 mg PO HS [facility] Last Admin: 09/27/18 21:52 Dose: 40 mg Fentanyl (Duragesic) 1 patch TD Q72H [facility] Last Admin: 09/27/18 15:36 Dose: 1 patch Folic Acid (Folic Acid) 1 mg PO DAILY [facility] Last Admin: 09/28/18 09:34 Dose: 1 mg Heparin Sodium (Porcine) (Heparin) 5,000 units SC Q8 [facility]; Protocol Last Admin: 09/28/18 05:48 Dose: 5,000 units Meropenem/Sodium Chloride (Merrem Iv 500 Mg/Ns 50 Ml) 500 mg in 50 mls @ 100 mls/hr IVPB Q8 [facility]; Protocol Last Admin: 09/28/18 12:35 Dose: 100 mls/hr Lactated Ringer's (Lactated Ringer's) 1,000 mls @ 50 mls/hr IV .Q20H [facility] Last Admin: 09/27/18 22:27 Dose: 50 mls/hr Metoprolol Tartrate (Lopressor) 25 mg PO BID [facility] Last Admin: 09/28/18 09:31 Dose: 25 mg Nystatin (Nystatin Oral Susp) 5 ml PO QID [facility] Last Admin: 09/28/18 13:59 Dose: 5 ml Pregabalin (Lyrica) 50 mg PO TID [facility] Last Admin: 09/28/18 14:00 Dose: 50 mg - Labs Labs: 09/28/18 06:20 09/28/18 06:20 PT 11.5 SECONDS (9.4-12.5) 09/24/18 13:30 INR 1.01 09/24/18 13:30 APTT 23.9 Seconds (25.1-36.5) L 12/16/18 13:30 Attending/Attestation - Attestation I have personally seen and examined this patient.: Yes I have fully participated in the care of the patient.: Yes I have reviewed all pertinent clinical information, including history, physical exam and plan: Yes
--- NOTE | 2018-09-26 18:59 | PN ---
DATE: 09/26/2018 SUBJECTIVE: The patient is a 78-year-old male with multiple medical issues including cancer with metastasis. The patient was admitted on the medical side for evaluation of inability to walk, weakness as well as not eating. Psych consult was called for evaluation of confusion as well as possible depressive symptoms. The patient was seen initially by Dr. Kwon, which notes reviewed. The patient presented to be depressed as well as anxious and Dr. Kwon started Lexapro and the patient agreed to that. This commercial underwriter followed up on this patient today, discussed with the patient's , Nelly Cruz who is next to the patient, her phone number is [phone]. As per Nelly today, the patient presented much better and does not have episodes of restless behavior or agitation. The patient himself seems to be in good spirit. The patient denied any thoughts of killing himself or others. The patient is hopeful for the future. The patient denied any psychotic symptoms reported that he had a good night sleep. OBJECTIVE: VITAL SIGNS: Reviewed, seems to be stable. Temperature 97.6, pulse is 110, blood pressure 160/95, respirations 26 and saturation is 97. MENTAL STATUS EXAM: The patient presented to be alert, less confused than yesterday. Mood described as "I am feeling fine, how is your mood." Affect was constricted, but reactive. Mood congruent. Thought process seems to be more organized, but still has tangentiality and circumstantiality. Thought content, the patient denied any thoughts of harming himself or others. Denied any psychotic symptoms, but the patient has episodes of confusion. Insight and judgment seems to be improving. Impulses are better controlled. MEDICATIONS: Reviewed. DuoNeb, amoxapine, Decadron, Colace, Pepcid, folic acid, heparin, Lopressor, nystatin, and Percocet as well as Lyrica. LABORATORY DATA: Reviewed. Most recent was from today. There are no signs of leukocytosis. Microbiology reviewed, Pseudomonas in the catheter. IMPRESSION: Mood disorder due to general medical condition, rule out delirium due to general medical condition. PLAN: Dr. Kwon discussed Lexapro and Celexa with the patient, but it was not started. Supportive therapy and empathic listening provided. There is no antipsychotic medications started. We will follow up and advise accordingly. This commercial underwriter also discussed possible power of city attorney initiation with the family or at least have a family meeting and initiate discussion about advance directives. I think that it would be right time for the patient to discuss his wishes as well as point family member to help him with the medical decisions in the future. Thank you very much for letting me to participate in the care of your patient. Should you have any questions, give me a call back. Marlen Alanis MD [email or web address]
[2018-09-27] MEDS: Albuterol-Ipratrop 3 mg / 0.5 (3 ml) UD IH SCH ×4 (03:15→19:46)
[2018-09-27 06:27] LABS: GRAN # 1.83 (1.4-6.5); GRAN % 84.4 % (50.0-68.0); HEMOGLOBIN 11.7 g/dL (14.0-18.0); LYMPH # 0.3 (1.2-3.4); LYMPH % 14.7 % (22.0-35.0); MEAN CELL VOLUME 90.6 fl (80.0-105.0); MEAN CORPUSCULAR HEMOGLOBIN 30.5 pg (25.0-35.0); MEAN CORPUSCULAR HGB CONC 33.6 g/dl (31.0-37.0); MEAN PLATELET VOLUME 10.1 fl (7.0-11.0); MONO % 0.9 % (1.0-6.0); RBC 3.84 10^6/uL (3.5-6.1); RED CELL DISTRIBUTION WIDTH 14.7 % (11.5-14.5); WHITE BLOOD COUNT 2.2 10^3/uL (4.5-11.0)
[2018-09-27 06:43] LABS: ALB/GLOB RATIO 1.1 (1.1-1.8); ALBUMIN 2.9 g/dL (3.0-4.8); ALT/SGPT 29 U/L (7-56); AST/SGOT 27 U/L (17-59); BLOOD UREA NITROGEN 24 mg/dL (7-21); CALCIUM 7.7 mg/dL (8.4-10.5); GFR NON-AFRICAN AMERICAN > 60
[2018-09-27] MEDS: Nystatin 100,000 Units/ml Oral Susp 5 ml UD PO SCH ×3 (09:09→17:13)
[2018-09-27] MEDS: Cefepime IV 2 gm in NS 2 GM/100 ML BAG IVPB SCH (09:12)
--- NOTE | 2018-09-27 15:13 | CP.PCM.CON ---
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 Patient reports his family is concerned because he has a lack of appetite and has not taken his medications because he is upset from his cancer. Patient denies any pain to his back, limbs and head at this time. Patient denies any fevers, chills, dizziness, chest pain, abdominal pain, nausea, vomiting, and diarrhea. Patient states he received his diagnosis of Lung CA a few weeks ago, which was confirmed with biopsy, and subsequently received a port. Patient reports he uses a urinary catheter at home due to his history of neurogenic bladder which came about after infection a few years ago. Urine cultures with heavy growth of Pseudomonas that is showing resistances to multiple antibiotics when evaluating the JAMARCUS values. Had leukocytosis on admission. PMHx: Lung CA with mets to lumbar spine, ribs, hips, History of diabetes (controlled without medications) PSHx: left wrist repair with titanium alisson Social Hx: Heavy smoker 1 pk/ year for ~60 years. Patient lives at home with his and reports he can ambulate independently Allergies: NKDA Active Medications Albuterol/Ipratropium (Duoneb 3 Mg/0.5 Mg (3 Ml) Ud) 3 ml IH Q2H PRN PRN Reason: Shortness of Breath Last Admin: 09/25/18 23:13 Dose: 3 ml Albuterol/Ipratropium (Duoneb 3 Mg/0.5 Mg (3 Ml) Ud) 3 ml IH [id number] [facility] Last Admin: 09/27/18 14:12 Dose: 3 ml Dexamethasone (Decadron) 4 mg PO Q8 [facility] Last Admin: 09/27/18 13:33 Dose: 4 mg Docusate Sodium (Colace) 100 mg PO DAILY [facility] Last Admin: 09/27/18 09:08 Dose: 100 mg Famotidine (Pepcid) 40 mg PO HS [facility] Last Admin: 09/26/18 21:45 Dose: 40 mg Fentanyl (Duragesic) 1 patch TD Q72H [facility] Folic Acid (Folic Acid) 1 mg PO DAILY [facility] Last Admin: 09/27/18 09:08 Dose: 1 mg Heparin Sodium (Porcine) (Heparin) 5,000 units SC Q8 [facility]; Protocol Last Admin: 09/27/18 13:33 Dose: 5,000 units Cefepime HCl (Maxipime 2gm) 2 gm in 100 mls @ 100 mls/hr IVPB Q12 [facility]; Protocol Stop: 09/30/18 10:01 Last Admin: 09/27/18 09:12 Dose: 100 mls/hr Metoprolol Tartrate (Lopressor) 25 mg PO BID [facility] Last Admin: 09/27/18 09:09 Dose: 25 mg Nystatin (Nystatin Oral Susp) 5 ml PO QID [facility] Last Admin: 09/27/18 13:34 Dose: 5 ml Oxycodone/Acetaminophen (Percocet 5/325 Mg Tab) 1 tab PO BID PRN PRN Reason: Pain, severe (8-10) Stop: 09/27/18 16:02 Last Admin: 09/25/18 22:30 Dose: 1 tab Pregabalin (Lyrica) 50 mg PO TID [facility] Last Admin: 09/27/18 13:34 Dose: 50 mg Family Hx: none given ROS: Failure to Thrive. Depression. Patient himself is not admitting to any symptoms... He denies fevers, chills, nausea, vomiting, headaches, dizziness, chest pain, abdominal pain, melena, hematuria, hematemesis, hematochezia. Past Patient History - Infectious Disease Hx of Infectious Diseases: None - Tetanus Immunizations Tetanus Immunization: Unknown - Past Social History Smoking Status: Former Smoker - CARDIAC Hx Pacemaker: No - PULMONARY Hx Respiratory Disorders: No - NEUROLOGICAL Hx Neurological Disorder: No Hx Paralysis: No - HEENT Hx HEENT Problems: No Hx Blind: No - RENAL Hx Chronic Kidney Disease: No - ENDOCRINE/METABOLIC Hx Diabetes Mellitus Type 2: Yes - HEMATOLOGICAL/ONCOLOGICAL Hx Blood Disorders: No Hx Blood Transfusions: No Hx Blood Transfusion Reaction: No - INTEGUMENTARY Hx Dermatological Problems: No - MUSCULOSKELETAL/RHEUMATOLOGICAL Hx Falls: No - GASTROINTESTINAL Hx Gastrointestinal Disorders: No - GENITOURINARY/GYNECOLOGICAL Hx Genitourinary Disorders: Yes (NEUROGENIC BLADDER,UROSEPSIS,CHRONIC URINARY RETENTION,BPH) Hx Reproductive Disorders: Yes (BPH) - PSYCHIATRIC Hx Psychophysiologic Disorder: No Hx Depression: No Hx Emotional Abuse: No Hx Physical Abuse: No Hx Substance Use: No - SURGICAL HISTORY Other/Comment: carotid endarterectomy - ANESTHESIA Hx Anesthesia: Yes Hx Anesthesia Reactions: No Hx Malignant Hyperthermia: No Meds Allergies/Adverse Reactions: Allergies Allergy/AdvReac Type Severity Reaction Status Date / Time No Known Allergies Allergy Verified 09/24/18 12:29 - Medications Medications: Current Medications Albuterol/Ipratropium (Duoneb 3 Mg/0.5 Mg (3 Ml) Ud) 3 ml IH Q2H PRN PRN Reason: Shortness of Breath Last Admin: 09/25/18 23:13 Dose: 3 ml Albuterol/Ipratropium (Duoneb 3 Mg/0.5 Mg (3 Ml) Ud) 3 ml IH [id number] [facility] Last Admin: 09/27/18 14:12 Dose: 3 ml Dexamethasone (Decadron) 4 mg PO Q8 [facility] Last Admin: 09/27/18 13:33 Dose: 4 mg Docusate Sodium (Colace) 100 mg PO DAILY [facility] Last Admin: 09/27/18 09:08 Dose: 100 mg Famotidine (Pepcid) 40 mg PO HS [facility] Last Admin: 09/26/18 21:45 Dose: 40 mg Fentanyl (Duragesic) 1 patch TD Q72H [facility] Folic Acid (Folic Acid) 1 mg PO DAILY [facility] Last Admin: 09/27/18 09:08 Dose: 1 mg Heparin Sodium (Porcine) (Heparin) 5,000 units SC Q8 [facility]; Protocol Last Admin: 09/27/18 13:33 Dose: 5,000 units Cefepime HCl (Maxipime 2gm) 2 gm in 100 mls @ 100 mls/hr IVPB Q12 [facility]; Protocol Stop: 09/30/18 10:01 Last Admin: 09/27/18 09:12 Dose: 100 mls/hr Metoprolol Tartrate (Lopressor) 25 mg PO BID [facility] Last Admin: 09/27/18 09:09 Dose: 25 mg Nystatin (Nystatin Oral Susp) 5 ml PO QID [facility] Last Admin: 09/27/18 13:34 Dose: 5 ml Oxycodone/Acetaminophen (Percocet 5/325 Mg Tab) 1 tab PO BID PRN PRN Reason: Pain, severe (8-10) Stop: 09/27/18 16:02 Last Admin: 09/25/18 22:30 Dose: 1 tab Pregabalin (Lyrica) 50 mg PO TID [facility] Last Admin: 09/27/18 13:34 Dose: 50 mg Physical Exam - Constitutional Appears: Non-toxic, No Acute Distress, Cachectic, Chronically Ill - Head Exam Head Exam: absent: ATRAUMATIC - Eye Exam Eye Exam: EOMI, PERRL Pupil Exam: NORMAL ACCOMODATION, PERRL - ENT Exam ENT Exam: Mucous Membranes Moist, Normal External Ear Exam, TM's Normal Bilaterally - Neck Exam Neck exam: Positive for: Full Rom, Normal Inspection - Respiratory Exam Respiratory Exam: Clear to Auscultation Bilateral, NORMAL BREATHING PATTERN. absent: Rales, Rhonchi, Wheezes - Cardiovascular Exam Cardiovascular Exam: REGULAR RHYTHM, RRR, +S1, +S2 - GI/Abdominal Exam GI & Abdominal Exam: Normal Bowel Sounds, Soft. absent: Distended, Tenderness - Extremities Exam Extremities exam: Positive for: normal capillary refill. Negative for: joint swelling, pedal edema - Neurological Exam Neurological exam: Alert, CN II-XII Intact, Oriented x3 - Psychiatric Exam Psychiatric exam: Depressed, Normal Affect - Skin Skin Exam: Intact, Normal Color Results - Vital Signs Recent Vital Signs: Last Vital Signs Temp 97.3 F L 09/27/18 06:00 Pulse 110 H 09/27/18 10:00 Resp 19 09/27/18 06:00 BP 147/86 09/27/18 09:09 Pulse Ox 94 L 09/27/18 06:00 - Labs Result Diagrams: 09/27/18 06:15 09/27/18 06:15 Labs: Laboratory Results - last 24 hr 09/27/18 09/27/18 06:15 06:15 WBC 2.2 L D RBC 3.84 Hgb 11.7 L Hct 34.8 L MCV 90.6 MCH 30.5 MCHC 33.6 RDW 14.7 H Plt Count 90 L MPV 10.1 Gran % 84.4 H Lymph % (Auto) 14.7 L [place] % (Auto) 0.9 L Eos % (Auto) 0.0 L Baso % (Auto) 0.0 Gran # 1.83 Lymph # (Auto) 0.3 L [place] # (Auto) 0.0 L Eos # (Auto) 0.0 Baso # (Auto) 0.00 Sodium 139 Potassium 3.6 Chloride 110 H Carbon Dioxide 25 Anion Gap 8 L BUN 24 H Creatinine 0.5 L Est GFR ( Amer) > 60 Est GFR (Non-Af Amer) > 60 Random Glucose 92 Calcium 7.7 L Phosphorus 1.7 L Magnesium 2.0 Total Bilirubin 0.7 AST 27 ALT 29 Alkaline Phosphatase 124 Total Protein 5.7 L Albumin 2.9 L Globulin 2.8 Albumin/Globulin Ratio 1.1 Assessment & Plan - Assessment and Plan (Free Text) Assessment: 77 yo male with BPH, neurogenic bladder, and Lung cancer with metastatic disease to bone found to have Pseudomonas in urine cultures that is highly resistant to antibiotic therapy. The patient was started on Cefepime and Vancomycin for antibiotic care. Initial leukocytosis now leukopenia. Procalcitonin was low at 0.10. Adequate renal function. CT scan had demonstrated left upper and left lower lobe infiltrates. Antibiotics of Cefepime should be changed to Meropenem due to the high JAMARCUS values seen for most of the "sensitive" antibiotics. Supportive care. Thank you for allowing me to participate in the care of the patient, we will follow with you.
--- NOTE | 2018-09-27 16:05 | CP.PCM.PN ---
<Amita Zaman - Last Filed: 09/27/18 16:10> Subjective - Date & Time of Evaluation Date of Evaluation: 09/27/18 Time of Evaluation: 10:55 - Subjective Subjective: Amita Zaman Y [facility] Progress Note Patient seen and examined at bedside this morning. No acute events overnight. Patient continues to deny any pain during examination. Will change antibiotics to merrem. Offers no complaints at this time. Objective - Vital Signs/Intake and Output Vital Signs (last 24 hours): Temp Pulse Resp BP Pulse Ox 97.3 F L 110 H 19 147/86 94 L 09/27/18 06:00 09/27/18 10:00 09/27/18 06:00 09/27/18 09:09 09/27/18 06:00 Intake and Output: 09/27/18 09/27/18 06:59 18:59 Intake Total 150 Output Total 1500 Balance -1350 - Medications Medications: Current Medications Albuterol/Ipratropium (Duoneb 3 Mg/0.5 Mg (3 Ml) Ud) 3 ml IH Q2H PRN PRN Reason: Shortness of Breath Last Admin: 09/25/18 23:13 Dose: 3 ml Albuterol/Ipratropium (Duoneb 3 Mg/0.5 Mg (3 Ml) Ud) 3 ml IH [id number] [facility] Last Admin: 09/27/18 14:12 Dose: 3 ml Dexamethasone (Decadron) 4 mg PO Q8 [facility] Last Admin: 09/27/18 13:33 Dose: 4 mg Docusate Sodium (Colace) 100 mg PO DAILY [facility] Last Admin: 09/27/18 09:08 Dose: 100 mg Famotidine (Pepcid) 40 mg PO HS [facility] Last Admin: 09/26/18 21:45 Dose: 40 mg Fentanyl (Duragesic) 1 patch TD Q72H [facility] Last Admin: 09/27/18 15:36 Dose: 1 patch Folic Acid (Folic Acid) 1 mg PO DAILY [facility] Last Admin: 09/27/18 09:08 Dose: 1 mg Heparin Sodium (Porcine) (Heparin) 5,000 units SC Q8 [facility]; Protocol Last Admin: 09/27/18 13:33 Dose: 5,000 units Meropenem/Sodium Chloride (Merrem Iv 500 Mg/Ns 50 Ml) 500 mg in 50 mls @ 100 mls/hr IVPB Q8 [facility]; Protocol Metoprolol Tartrate (Lopressor) 25 mg PO BID [facility] Last Admin: 09/27/18 09:09 Dose: 25 mg Nystatin (Nystatin Oral Susp) 5 ml PO QID [facility] Last Admin: 09/27/18 13:34 Dose: 5 ml Pregabalin (Lyrica) 50 mg PO TID [facility] Last Admin: 09/27/18 13:34 Dose: 50 mg - Labs Labs: 09/27/18 06:15 09/27/18 06:15 PT 11.5 SECONDS (9.4-12.5) 09/24/18 13:30 INR 1.01 09/24/18 13:30 APTT 23.9 Seconds (25.1-36.5) L 09/24/18 13:30 - Additional Findings Additional findings: - Head Exam Head Exam: NORMAL INSPECTION - Eye Exam Eye Exam: EOMI, PERRLA - ENT Exam ENT Exam: Mucous Membranes Moist, Oral thrush present - improved from prior - Respiratory Exam Respiratory Exam: Clear to PA & Lateral, NORMAL BREATHING PATTERN, no wheezing or respiratory distress, rales, rhonchi - Cardiovascular Exam Cardiovascular Exam: REGULAR RHYTHM, S1 and S2 present - GI/Abdominal Exam GI & Abdominal Exam: Soft. absent: Distended, Guarding, Tenderness - Padilla in place draining yellow fluid - Extremities Exam Extremities exam: normal capillary refill, pedal pulses present - Neurological Exam Neurological exam: Alert, Oriented x3 - Psychiatric Exam Psychiatric exam: Normal Affect, Normal Mood - Skin Skin Exam: Dry, Intact, Warm Assessment and Plan - Assessment and Plan (Free Text) Assessment: 77 year old male, with a past medical history of BPH, neurogenic bladder, UTI's, and lung CA with metastasis to bone (confirmed by biopsy and PET scan) who presents with questionable HCAP and UTI. Plan: HCAP -merrem day 1 to cover UTI growing pseudomonas -CXR 09/24 shows small L pleural effusion with consolidation, L lung spiculated mass -Chest CT 09/24 shows left upper lobe mass, similar to prior study. Left upper lobe and lower lobe infiltrates. Moderate left plural effusion. T12 osseous sclerosis suspicious for mets -procal is unremarkable -will taper down decadron: 4mg q8 x3 days (today is day 2 out of 3), then 4mg q12 x 3 days, then 4mg daily daily for 3 days, then 2mg daily for 3 days -fentany patch given Hx Lung CA with known metastases -Chest CT shows left upper lobe mass, similar to prior study. Left upper lobe and lower lobe infiltrates. Moderate left plural effusion. T12 osseous sclerosis suspicious for mets -per psych, will try off psych meds at this time. Will discuss POA with family in regards to advanced directives -Hem/Onc Dr. Rodriguez on consult -continue with home Percocet, Lyrica and Decadron. Percocet BID prn -per discussion with family, they want to discharge patient home -tolerating ensure diet Leukopenia, thrombocytopenia -possible side effect of antibiotics, will monitor Taccycardia -unknown etiology, HR 90-110 -TSH WNL -cardiology on consult -lopressor 25mg BID -consider demand ischemia vs chemo effects for mild troponin increase -trops x 3 are unremarkable Asymptomatic UTI -UA + nitrates, small leuk esterase -urine cx growing pseudomonas -merrem day 1 -ID on consult Neurogenic bladder -uses self-catheter at home -continue padilla catheter, draining yellow fluid -urine cx positive, on antibiotics PPX/Diet -pepcid, heparin -HHD Patient seen and case reviewed with attending, Dr. Villar <Keny Villar - Last Filed: 09/28/18 15:37> Objective - Vital Signs/Intake and Output Vital Signs (last 24 hours): Temp Pulse Resp BP Pulse Ox 98.5 F 83 20 129/92 H 95 09/28/18 08:01 09/28/18 10:00 09/28/18 08:01 09/28/18 09:31 09/28/18 08:01 Intake and Output: 09/28/18 09/28/18 06:59 18:59 Intake Total 240 Output Total 200 Balance 40 - Medications Medications: Current Medications Albuterol/Ipratropium (Duoneb 3 Mg/0.5 Mg (3 Ml) Ud) 3 ml IH Q2H PRN PRN Reason: Shortness of Breath Last Admin: 09/25/18 23:13 Dose: 3 ml Albuterol/Ipratropium (Duoneb 3 Mg/0.5 Mg (3 Ml) Ud) 3 ml IH [id number] Last Admin: 09/28/18 13:49 Dose: Not Given Dexamethasone (Decadron) 4 mg PO Q8 [facility] Last Admin: 09/28/18 13:58 Dose: 4 mg Docusate Sodium (Colace) 100 mg PO DAILY [facility] Last Admin: 09/28/18 09:30 Dose: 100 mg Famotidine (Pepcid) 40 mg PO HS [facility] Last Admin: 09/27/18 21:52 Dose: 40 mg Fentanyl (Duragesic) 1 patch TD Q72H [facility] Last Admin: 09/27/18 15:36 Dose: 1 patch Folic Acid (Folic Acid) 1 mg PO DAILY [facility] Last Admin: 09/28/18 09:34 Dose: 1 mg Heparin Sodium (Porcine) (Heparin) 5,000 units SC Q8 [facility]; Protocol Last Admin: 09/28/18 05:48 Dose: 5,000 units Meropenem/Sodium Chloride (Merrem Iv 500 Mg/Ns 50 Ml) 500 mg in 50 mls @ 100 mls/hr IVPB Q8 [facility]; Protocol Last Admin: 09/28/18 12:35 Dose: 100 mls/hr Lactated Ringer's (Lactated Ringer's) 1,000 mls @ 50 mls/hr IV .Q20H [facility] Last Admin: 09/27/18 22:27 Dose: 50 mls/hr Metoprolol Tartrate (Lopressor) 25 mg PO BID [facility] Last Admin: 09/28/18 09:31 Dose: 25 mg Nystatin (Nystatin Oral Susp) 5 ml PO QID [facility] Last Admin: 09/28/18 13:59 Dose: 5 ml Pregabalin (Lyrica) 50 mg PO TID [facility] Last Admin: 09/28/18 14:00 Dose: 50 mg - Labs Labs: 09/28/18 06:20 09/28/18 06:20 PT 11.5 SECONDS (9.4-12.5) 09/24/18 13:30 INR 1.01 09/24/18 13:30 APTT 23.9 Seconds (25.1-36.5) L 09/24/18 13:30 Attending/Attestation - Attestation I have personally seen and examined this patient.: Yes I have fully participated in the care of the patient.: Yes I have reviewed all pertinent clinical information, including history, physical exam and plan: Yes Notes (Text): 09/28/18 15:36 Medical record note made by the resident after discussion with my direction and input after the patient was personally seen and examined by me. I have reviewed the chart and agree that the record accurately reflects by personal performance of the history, physical exam, data review, and medical decision-making, in the course for the patient. I have also personally directed the plan of care.
[2018-09-27] MEDS: MEROPENEM 500 MG in NS 500 MG/50 ML BAG IVPB SCH (17:13)
--- NOTE | 2018-09-27 19:16 | PN ---
DATE: 09/27/2018 SUBJECTIVE: The patient was followed up today. Shortly, the patient has multiple medical issues which are neurogenic bladder, lung cancer with metastasis to bone. The patient was found to have Pseudomonas highly resistant to antibiotic care. Psych consult was called because the patient had episodes of confusion and restlessness. So far, the patient is improving. There is no confusion or agitation. The patient was seen by Dr. Kwon initially. This proposal manager writer saw the patient yesterday, discussed with the family, the patient's about importance to have advance directives as well as power of attorney general is to be discussed with the patient as well as with the family. Besides that, the patient is doing a little bit better to compare with yesterday. The patient reported that his mood is good. Affect was more reactive and mood congruent. Thought process concrete. Thought content, the patient denied any perceptual disturbances. The patient does not appear to be psychotic. OBJECTIVE: VITAL SIGNS: Vital signs seems to be stable. MENTAL STATUS EXAM: The patient appears to be alert. The patient knows that he is in the hospital, was able to recognize his family. Mood described as perfect. Affect was constricted, but more reactive and mood congruent. Thought process seems to be coherent and goal directed. Thought content, the patient denied visual, auditory, or tactile hallucinations. Denied paranoid ideation. The patient denied thoughts of harming himself or others. Denied intent or plan. Insight and judgment seems to be fair. Impulses are well controlled. MEDICATIONS: Reviewed. LABORATORY DATA: Reviewed. IMPRESSION: The patient obviously was in delirium stage, which is clearing up, rule out adjustment disorder, rule out mood disorder due to general medical condition. PLAN: Continue current management. Continue current medication. The patient is doing better. The patient adamantly denied thoughts of harming himself or others. There are no episodes of confusion or agitation. The patient's family is willing to take him back home. At present moment, the patient pose no imminent danger to self or others. This proposal manager writer will sign off. Should you have any questions, give me a call back. Thank you very much for letting me to participate in the care of your patient. Marlen Alanis MD [facility] # [phone]
[2018-09-27] MEDS: Lactated Ringer's 1,000 ML IV SCH (22:27)
[2018-09-28] MEDS: Albuterol-Ipratrop 3 mg / 0.5 (3 ml) UD IH SCH ×4 (01:01→19:26)
[2018-09-28] MEDS: MEROPENEM 500 MG in NS 500 MG/50 ML BAG IVPB SCH ×5 (03:54→21:50)
[2018-09-28 06:39] LABS: GRAN # 1.07 (1.4-6.5); GRAN % 75.9 % (50.0-68.0); HEMOGLOBIN 11.3 g/dL (14.0-18.0); LYMPH # 0.3 (1.2-3.4); LYMPH % 20.6 % (22.0-35.0); MEAN CELL VOLUME 90.7 fl (80.0-105.0); MEAN CORPUSCULAR HEMOGLOBIN 29.9 pg (25.0-35.0); MEAN CORPUSCULAR HGB CONC 32.9 g/dl (31.0-37.0); MONO # 0.1 (0.1-0.6); MONO % 3.5 % (1.0-6.0); PLATELET COUNT 75 10^3/uL (120.0-450.0); RBC 3.78 10^6/uL (3.5-6.1); RED CELL DISTRIBUTION WIDTH 14.7 % (11.5-14.5)
[2018-09-28] MEDS: Nystatin 100,000 Units/ml Oral Susp 5 ml UD PO SCH ×5 (06:45→21:46)
[2018-09-28 06:48] LABS: WHITE BLOOD COUNT 1.4 10^3/uL (4.5-11.0)
[2018-09-28 07:06] LABS: ALB/GLOB RATIO 1.1 (1.1-1.8); ALBUMIN 2.9 g/dL (3.0-4.8); ALT/SGPT 30 U/L (7-56); AST/SGOT 25 U/L (17-59); BLOOD UREA NITROGEN 29 mg/dL (7-21); CALCIUM 7.6 mg/dL (8.4-10.5); GFR NON-AFRICAN AMERICAN > 60
[2018-09-28 08:09] LABS: LYMPHOCYTE 21 % (22.0-35.0); MONOCYTE 2 % (1.0-6.0); NEUTROPHIL 77 % (50.0-70.0); PLATELET ESTIMATE LOW (NORMAL)
--- NOTE | 2018-09-28 10:01 | PN ---
DATE: 09/28/2018 The patient with pseudomonas in his urine, on antibiotics. He received his chemotherapy, his very first shot of chemotherapy, last week. So, this would be day 9 status post chemotherapy. At that time, he received Taxotere and carboplatin at half strength, relatively much lower dose of chemotherapy. However, his white count, which was 10 has been dropping down to 2.2 yesterday and 1.4 today. His hemoglobin is 11.3 and his platelet count dropped about 120 down to 75. The white count is expected to start going up in the next couple of days, but we will give him Neupogen for the next 3-4 days to see if we can improve it. He has many medical problems including severe chronic obstructive pulmonary disease, urinary tract infection as well. So, we will start the antibiotics with 75%. He is still over 500 neutrophils, but we will hopefully increase his white cells with the Neupogen. Jax Rodriguez MD
--- NOTE | 2018-09-28 13:05 | CP.PCM.PN ---
<Amita Zaman - Last Filed: 09/28/18 12:58> Subjective - Date & Time of Evaluation Date of Evaluation: 09/28/18 Time of Evaluation: 10:33 - Subjective Subjective: Amita Zaman Y1 [facility] Progress Note Patient seen and examined at bedside this morning. No acute events overnight. Patient appears in better spirits today. Tolerating diet better. Offers no complaints today. Objective - Vital Signs/Intake and Output Vital Signs (last 24 hours): Temp Pulse Resp BP Pulse Ox 98.5 F 106 H 20 129/92 H 95 09/28/18 08:01 09/28/18 09:31 09/28/18 08:01 09/28/18 09:31 09/28/18 08:01 Intake and Output: 09/28/18 09/28/18 06:59 18:59 Intake Total 240 Output Total 200 Balance 40 - Medications Medications: Current Medications Albuterol/Ipratropium (Duoneb 3 Mg/0.5 Mg (3 Ml) Ud) 3 ml IH Q2H PRN PRN Reason: Shortness of Breath Last Admin: 09/25/18 23:13 Dose: 3 ml Albuterol/Ipratropium (Duoneb 3 Mg/0.5 Mg (3 Ml) Ud) 3 ml IH [id number] [facility] Last Admin: 09/28/18 08:25 Dose: 3 ml Dexamethasone (Decadron) 4 mg PO Q8 [facility] Last Admin: 09/28/18 05:48 Dose: 4 mg Docusate Sodium (Colace) 100 mg PO DAILY [facility] Last Admin: 09/28/18 09:30 Dose: 100 mg Famotidine (Pepcid) 40 mg PO HS [facility] Last Admin: 09/27/18 21:52 Dose: 40 mg Fentanyl (Duragesic) 1 patch TD Q72H [facility] Last Admin: 09/27/18 15:36 Dose: 1 patch Folic Acid (Folic Acid) 1 mg PO DAILY [facility] Last Admin: 09/28/18 09:34 Dose: 1 mg Heparin Sodium (Porcine) (Heparin) 5,000 units SC Q8 [facility]; Protocol Last Admin: 09/28/18 05:48 Dose: 5,000 units Meropenem/Sodium Chloride (Merrem Iv 500 Mg/Ns 50 Ml) 500 mg in 50 mls @ 100 mls/hr IVPB Q8 [facility]; Protocol Last Admin: 09/28/18 11:08 Dose: 100 mls/hr Lactated Ringer's (Lactated Ringer's) 1,000 mls @ 50 mls/hr IV .Q20H [facility] Last Admin: 09/27/18 22:27 Dose: 50 mls/hr Metoprolol Tartrate (Lopressor) 25 mg PO BID [facility] Last Admin: 09/28/18 09:31 Dose: 25 mg Nystatin (Nystatin Oral Susp) 5 ml PO QID [facility] Last Admin: 09/28/18 09:35 Dose: 5 ml Pregabalin (Lyrica) 50 mg PO TID [facility] Last Admin: 09/28/18 09:34 Dose: 50 mg - Labs Labs: 09/28/18 06:20 09/28/18 06:20 PT 11.5 SECONDS (9.4-12.5) 09/24/18 13:30 INR 1.01 09/24/18 13:30 APTT 23.9 Seconds (25.1-36.5) L 09/24/18 13:30 - Additional Findings Additional findings: Head Exam Head Exam: NORMAL INSPECTION - Eye Exam Eye Exam: EOMI, PERRLA - ENT Exam ENT Exam: Mucous Membranes Moist, Oral thrush present - improved from prior - Respiratory Exam Respiratory Exam: Clear to PA & Lateral, NORMAL BREATHING PATTERN, no wheezing or respiratory distress, rhonchi - Cardiovascular Exam Cardiovascular Exam: REGULAR RHYTHM, S1 and S2 present - GI/Abdominal Exam GI & Abdominal Exam: Soft. absent: Distended, Guarding, Tenderness - Padilla in place draining yellow fluid, no blood - Extremities Exam Extremities exam: normal capillary refill, pedal pulses present - Neurological Exam Neurological exam: Alert, Oriented x3 - Psychiatric Exam Psychiatric exam: Normal Affect, Normal Mood - Skin Skin Exam: Dry, Intact, Warm Assessment and Plan - Assessment and Plan (Free Text) Assessment: 77 year old male, with a past medical history of BPH, neurogenic bladder, UTI's, and lung CA with metastasis to bone (confirmed by biopsy and PET scan) who presents with questionable HCAP and UTI. Plan: HCAP -merrem day 2 to cover UTI growing pseudomonas. May discharge on ertapenum -will taper down decadron: 4mg q8 x3 days (today is day 3 out of 3), then 4mg q12 x 3 days, then 4mg daily daily for 3 days, then 2mg daily for 3 days -CXR 09/24 shows small L pleural effusion with consolidation, L lung spiculated mass -Chest CT 09/24 shows left upper lobe mass, similar to prior study. Left upper lobe and lower lobe infiltrates. Moderate left plural effusion. T12 osseous sclerosis suspicious for mets -procal is unremarkable -fentany patch given, helping with symptoms Hx Lung CA with known metastases -Chest CT shows left upper lobe mass, similar to prior study. Left upper lobe and lower lobe infiltrates. Moderate left plural effusion. T12 osseous sclerosis suspicious for mets -per psych, will try off psych meds at this time. Will discuss POA with family in regards to advanced directives -Hem/Onc Dr. Rodriguez on consult, awaiting recommendations -continue with home Percocet, Lyrica and Decadron. Percocet BID prn -per discussion with family, they want to discharge patient home. Will need further inpatient treatment -tolerating ensure diet, increased appetite today Leukopenia, thrombocytopenia -worsened today, stopped heparin 5k -started granix Taccycardia -HR stable, WNL -TSH WNL -cardiology on consult -lopressor 25mg BID -consider demand ischemia vs chemo effects for mild troponin increase -trops x 3 are unremarkable Asymptomatic UTI -UA + nitrates, small leuk esterase -urine cx growing pseudomonas -merrem day 2 -ID on consult Neurogenic bladder -uses self-catheter at home -continue padilla catheter, draining yellow fluid -urine cx positive, on antibiotics PPX/Diet -pepcid, SCD -HHD Patient seen and case reviewed with attending, Dr. Villar <Keny Villar - Last Filed: 09/28/18 15:36> Objective - Vital Signs/Intake and Output Vital Signs (last 24 hours): Temp Pulse Resp BP Pulse Ox 98.5 F 83 20 129/92 H 95 09/28/18 08:01 09/28/18 10:00 09/28/18 08:01 09/28/18 09:31 09/28/18 08:01 Intake and Output: 09/28/18 09/28/18 06:59 18:59 Intake Total 240 Output Total 200 Balance 40 - Medications Medications: Current Medications Albuterol/Ipratropium (Duoneb 3 Mg/0.5 Mg (3 Ml) Ud) 3 ml IH Q2H PRN PRN Reason: Shortness of Breath Last Admin: 09/25/18 23:13 Dose: 3 ml Albuterol/Ipratropium (Duoneb 3 Mg/0.5 Mg (3 Ml) Ud) 3 ml IH [id number] [facility] Last Admin: 09/28/18 13:49 Dose: Not Given Dexamethasone (Decadron) 4 mg PO Q8 [facility] Last Admin: 09/28/18 13:58 Dose: 4 mg Docusate Sodium (Colace) 100 mg PO DAILY [facility] Last Admin: 09/28/18 09:30 Dose: 100 mg Famotidine (Pepcid) 40 mg PO HS [facility] Last Admin: 09/27/18 21:52 Dose: 40 mg Fentanyl (Duragesic) 1 patch TD Q72H [facility] Last Admin: 09/27/18 15:36 Dose: 1 patch Folic Acid (Folic Acid) 1 mg PO DAILY [facility] Last Admin: 09/28/18 09:34 Dose: 1 mg Heparin Sodium (Porcine) (Heparin) 5,000 units SC Q8 [facility]; Protocol Last Admin: 09/28/18 05:48 Dose: 5,000 units Meropenem/Sodium Chloride (Merrem Iv 500 Mg/Ns 50 Ml) 500 mg in 50 mls @ 100 mls/hr IVPB Q8 [facility]; Protocol Last Admin: 09/28/18 12:35 Dose: 100 mls/hr Lactated Ringer's (Lactated Ringer's) 1,000 mls @ 50 mls/hr IV .Q20H [facility] Last Admin: 09/27/18 22:27 Dose: 50 mls/hr Metoprolol Tartrate (Lopressor) 25 mg PO BID [facility] Last Admin: 09/28/18 09:31 Dose: 25 mg Nystatin (Nystatin Oral Susp) 5 ml PO QID [facility] Last Admin: 09/28/18 13:59 Dose: 5 ml Pregabalin (Lyrica) 50 mg PO TID [facility] Last Admin: 09/28/18 14:00 Dose: 50 mg - Labs Labs: 09/28/18 06:20 09/28/18 06:20 PT 11.5 SECONDS (9.4-12.5) 09/24/18 13:30 INR 1.01 09/24/18 13:30 APTT 23.9 Seconds (25.1-36.5) L 09/24/18 13:30 Attending/Attestation - Attestation I have personally seen and examined this patient.: Yes I have fully participated in the care of the patient.: Yes I have reviewed all pertinent clinical information, including history, physical exam and plan: Yes Notes (Text): 09/28/18 15:31 Patient was seen and examined with medical planner. 77 yo male with BPH, neurogenic bladder, and stage IV Lung cancer with metastatic disease to bone found to have Pseudomonas in urine cultures that is highly resistant to antibiotic therapy. The patient was started on Cefepime and Vancomycin for antibiotic care. Initial leukocytosis now leukopenia. Procalcitonin was low at 0.10. Adequate renal function. CT scan had demonstrated left upper and left lower lobe infiltrates. Antibiotics of Cefepime is changed to Meropenem due to the high JAMARCUS values seen for most of the "sensitive" antibiotics. Patient had developed Neuropenia, is following, started on Filgastrin today by oncology, also has thrombocytopenia. Appetite is better, has oral thrus which is improved. Psychiatry has started patient on Lexapro for depression. Swallow evaluation is requested due to family concern.Wants to go home, refused MAYNOR, Patient family has asked for second opinion regarding his cancer treatment. They have been advised to get Pathology report and PET scan from outside hospital.After that can get second opinion outpatient vs inpatient depending on patient stay in the hospital. Prognosis is guarded. Management plan was discussed in detail with patient and family. Education was provided.
--- NOTE | 2018-09-28 18:40 | CP.PCM.PN ---
Subjective - Date & Time of Evaluation Date of Evaluation: 09/28/18 Time of Evaluation: 16:15 - Subjective Subjective: Infectious Disease Follow Up: September 28, 2018 77 [id number], with a past medical history of 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 Patient reports his family is concerned because he has a lack of appetite and has not taken his medications because he is upset from his cancer. Patient denies any pain to his back, limbs and head at this time. Patient denies any fevers, chills, dizziness, chest pain, abdominal pain, nausea, vomiting, and diarrhea. Patient states he received his diagnosis of Lung CA a few weeks ago, which was confirmed with biopsy, and subsequently received a port. Patient reports he uses a urinary catheter at home due to his history of neurogenic bladder which came about after infection a few years ago. Urine cultures with heavy growth of Pseudomonas that is showing resistances to multiple antibiotics when evaluating the JAMARCUS values. Had leukocytosis on admission. On Meropenem now for treatment. Slight improvement to appetite. Objective - Vital Signs/Intake and Output Vital Signs (last 24 hours): Temp Pulse Resp BP Pulse Ox 97.7 F 102 H 19 118/67 94 L 09/28/18 17:27 09/28/18 18:00 09/28/18 17:27 09/28/18 17:27 09/28/18 17:27 Intake and Output: 09/28/18 09/28/18 06:59 18:59 Intake Total 240 Output Total 200 Balance 40 - Medications Medications: Current Medications Albuterol/Ipratropium (Duoneb 3 Mg/0.5 Mg (3 Ml) Ud) 3 ml IH Q2H PRN PRN Reason: Shortness of Breath Last Admin: 09/25/18 23:13 Dose: 3 ml Albuterol/Ipratropium (Duoneb 3 Mg/0.5 Mg (3 Ml) Ud) 3 ml IH [id number] [facility] Last Admin: 09/28/18 13:49 Dose: Not Given Dexamethasone (Decadron) 4 mg PO Q8 [facility] Last Admin: 09/28/18 13:58 Dose: 4 mg Docusate Sodium (Colace) 100 mg PO DAILY [facility] Last Admin: 09/28/18 09:30 Dose: 100 mg Famotidine (Pepcid) 40 mg PO HS [facility] Last Admin: 09/27/18 21:52 Dose: 40 mg Fentanyl (Duragesic) 1 patch TD Q72H [facility] Last Admin: 09/27/18 15:36 Dose: 1 patch Folic Acid (Folic Acid) 1 mg PO DAILY [facility] Last Admin: 09/28/18 09:34 Dose: 1 mg Heparin Sodium (Porcine) (Heparin) 5,000 units SC Q8 [facility]; Protocol Last Admin: 09/28/18 05:48 Dose: 5,000 units Meropenem/Sodium Chloride (Merrem Iv 500 Mg/Ns 50 Ml) 500 mg in 50 mls @ 100 mls/hr IVPB Q8 [facility]; Protocol Last Admin: 09/28/18 12:35 Dose: 100 mls/hr Lactated Ringer's (Lactated Ringer's) 1,000 mls @ 50 mls/hr IV .Q20H [facility] Last Admin: 09/27/18 22:27 Dose: 50 mls/hr Metoprolol Tartrate (Lopressor) 25 mg PO BID [facility] Last Admin: 09/28/18 17:16 Dose: 25 mg Nystatin (Nystatin Oral Susp) 5 ml PO QID [facility] Last Admin: 09/28/18 17:17 Dose: 5 ml Pregabalin (Lyrica) 50 mg PO TID [facility] Last Admin: 09/28/18 17:15 Dose: 50 mg - Labs Labs: 09/28/18 06:20 09/28/18 06:20 PT 11.5 SECONDS (9.4-12.5) 09/24/18 13:30 INR 1.01 09/24/18 13:30 APTT 23.9 Seconds (25.1-36.5) L 09/24/18 13:30 - Constitutional Appears: Non-toxic, No Acute Distress, Chronically Ill - Head Exam Head Exam: ATRAUMATIC, NORMOCEPHALIC - Eye Exam Eye Exam: EOMI, PERRL Pupil Exam: NORMAL ACCOMODATION, PERRL - ENT Exam ENT Exam: Mucous Membranes Moist, Normal External Ear Exam, TM's Normal Bilaterally - Neck Exam Neck Exam: Full ROM, Normal Inspection - Respiratory Exam Respiratory Exam: Clear to Ausculation Bilateral, NORMAL BREATHING PATTERN. absent: Rales, Rhonchi, Wheezes - Cardiovascular Exam Cardiovascular Exam: REGULAR RHYTHM, RRR, +S1, +S2 - GI/Abdominal Exam GI & Abdominal Exam: Soft, Normal Bowel Sounds. absent: Distended, Tenderness - Extremities Exam Extremities Exam: Full ROM, Normal Inspection - Neurological Exam Neurological Exam: Alert, Awake, CN II-XII Intact, Oriented x3 - Psychiatric Exam Psychiatric exam: Normal Affect, Normal Mood - Skin Skin Exam: Intact, Normal Color Assessment and Plan - Assessment and Plan (Free Text) Assessment: 77 yo male with BPH, neurogenic bladder, and Lung cancer with metastatic disease to bone found to have Pseudomonas in urine cultures that is highly resistant to antibiotic therapy. The patient was started on Cefepime and Vancomycin for antibiotic care. Initial leukocytosis now leukopenia. Procalcitonin was low at 0.10. Adequate renal function. CT scan had demonstrated left upper and left lower lobe infiltrates. Antibiotics of Cefepime should be changed to Meropenem due to the high JAMARCUS values seen for most of the "sensitive" antibiotics. Supportive care. On Meropenem now... can use Invanz if discharging to home at 1gm daily for 5-7 days on discharge from hospital. Thank you for allowing me to participate in the care of the patient, we will follow with you.
[2018-09-29] MEDS: Albuterol-Ipratrop 3 mg / 0.5 (3 ml) UD IH SCH ×4 (02:11→19:37)
[2018-09-29] MEDS: MEROPENEM 500 MG in NS 500 MG/50 ML BAG IVPB SCH ×2 (05:48→13:57)
[2018-09-29] MEDS: Albuterol-Ipratrop 3 mg / 0.5 (3 ml) UD IH PRN (06:01)
[2018-09-29 06:43] LABS: GRAN # 2.67 (1.4-6.5); GRAN % 85.9 % (50.0-68.0); LYMPH # 0.3 (1.2-3.4); LYMPH % 9.3 % (22.0-35.0); MEAN CELL VOLUME 89.9 fl (80.0-105.0); MEAN CORPUSCULAR HGB CONC 33.3 g/dl (31.0-37.0); MEAN PLATELET VOLUME 10.3 fl (7.0-11.0); MONO # 0.2 (0.1-0.6); MONO % 4.8 % (1.0-6.0); RBC 3.67 10^6/uL (3.5-6.1); RED CELL DISTRIBUTION WIDTH 14.3 % (11.5-14.5); WHITE BLOOD COUNT 3.1 10^3/uL (4.5-11.0)
[2018-09-29 07:33] LABS: ALB/GLOB RATIO 1.1 (1.1-1.8); ALBUMIN 2.9 g/dL (3.0-4.8); ALT/SGPT 36 U/L (7-56); AST/SGOT 30 U/L (17-59); BLOOD UREA NITROGEN 21 mg/dL (7-21); CALCIUM 7.4 mg/dL (8.4-10.5); GFR NON-AFRICAN AMERICAN > 60
[2018-09-29 07:46] VITALS: RESP 20; TEMP 98.5; O2SAT 97
[2018-09-29] MEDS: Nystatin 100,000 Units/ml Oral Susp 5 ml UD PO SCH ×3 (09:40→17:38)
--- NOTE | 2018-09-29 13:17 | CP.PCM.PN ---
Subjective - Date & Time of Evaluation Date of Evaluation: 09/29/18 Time of Evaluation: 12:00 - Subjective Subjective: Infectious Disease Follow Up: September 29, 2018 77 [id number], with a past medical history of 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 Patient reports his family is concerned because he has a lack of appetite and has not taken his medications because he is upset from his cancer. Patient denies any pain to his back, limbs and head at this time. Patient denies any fevers, chills, dizziness, chest pain, abdominal pain, nausea, vomiting, and diarrhea. Patient states he received his diagnosis of Lung CA a few weeks ago, which was confirmed with biopsy, and subsequently received a port. Patient reports he uses a urinary catheter at home due to his history of neurogenic bladder which came about after infection a few years ago. Urine cultures with heavy growth of Pseudomonas that is showing resistances to multiple antibiotics when evaluating the JAMARCUS values. Had leukocytosis on admission. On Meropenem now for treatment. Slight improvement to appetite. Patient is severely depressed. Objective - Vital Signs/Intake and Output Vital Signs (last 24 hours): Temp Pulse Resp BP Pulse Ox 98.5 F 108 H 20 151/78 H 97 09/29/18 07:46 09/29/18 10:00 09/29/18 07:46 09/29/18 09:40 09/29/18 07:46 Intake and Output: 09/29/18 09/29/18 06:59 18:59 Intake Total 1560 Output Total 975 Balance 585 - Medications Medications: Current Medications Albuterol/Ipratropium (Duoneb 3 Mg/0.5 Mg (3 Ml) Ud) 3 ml IH Q2H PRN PRN Reason: Shortness of Breath Last Admin: 09/29/18 06:01 Dose: 3 ml Albuterol/Ipratropium (Duoneb 3 Mg/0.5 Mg (3 Ml) Ud) 3 ml IH [id number] [facility] Last Admin: 09/29/18 08:14 Dose: 3 ml Dexamethasone (Decadron) 4 mg PO Q8 [facility] Last Admin: 09/29/18 05:48 Dose: 4 mg Docusate Sodium (Colace) 100 mg PO DAILY [facility] Last Admin: 09/29/18 09:39 Dose: 100 mg Famotidine (Pepcid) 40 mg PO HS [facility] Last Admin: 09/28/18 21:46 Dose: 40 mg Fentanyl (Duragesic) 1 patch TD Q72H [facility] Last Admin: 09/27/18 15:36 Dose: 1 patch Folic Acid (Folic Acid) 1 mg PO DAILY [facility] Last Admin: 09/29/18 09:39 Dose: 1 mg Heparin Sodium (Porcine) (Heparin) 5,000 units SC Q8 [facility]; Protocol Last Admin: 09/28/18 05:48 Dose: 5,000 units Meropenem/Sodium Chloride (Merrem Iv 500 Mg/Ns 50 Ml) 500 mg in 50 mls @ 100 mls/hr IVPB Q8 [facility]; Protocol Last Admin: 09/29/18 05:48 Dose: 100 mls/hr Lactated Ringer's (Lactated Ringer's) 1,000 mls @ 50 mls/hr IV .Q20H [facility] Last Admin: 09/27/18 22:27 Dose: 50 mls/hr Metoprolol Tartrate (Lopressor) 25 mg PO BID [facility] Last Admin: 09/29/18 09:40 Dose: 25 mg Nystatin (Nystatin Oral Susp) 5 ml PO QID [facility] Last Admin: 09/29/18 09:40 Dose: 5 ml Pregabalin (Lyrica) 50 mg PO TID [facility] Last Admin: 09/29/18 09:40 Dose: 50 mg - Labs Labs: 09/29/18 06:00 09/29/18 06:00 PT 11.5 SECONDS (9.4-12.5) 09/24/18 13:30 INR 1.01 09/24/18 13:30 APTT 23.9 Seconds (25.1-36.5) L 09/24/18 13:30 - Constitutional Appears: Non-toxic, No Acute Distress, Chronically Ill - Head Exam Head Exam: ATRAUMATIC, NORMOCEPHALIC - Eye Exam Eye Exam: EOMI, PERRL Pupil Exam: NORMAL ACCOMODATION, PERRL - ENT Exam ENT Exam: Mucous Membranes Moist, Normal External Ear Exam, TM's Normal Bilaterally - Neck Exam Neck Exam: Full ROM, Normal Inspection - Respiratory Exam Respiratory Exam: Clear to Ausculation Bilateral, NORMAL BREATHING PATTERN. absent: Rales, Rhonchi, Wheezes - Cardiovascular Exam Cardiovascular Exam: REGULAR RHYTHM, RRR, +S1, +S2 - GI/Abdominal Exam GI & Abdominal Exam: Soft, Normal Bowel Sounds. absent: Distended, Tenderness - Extremities Exam Extremities Exam: Full ROM, Normal Inspection - Neurological Exam Neurological Exam: Alert, Awake, CN II-XII Intact, Oriented x3 - Psychiatric Exam Psychiatric exam: Normal Affect, Normal Mood - Skin Skin Exam: Intact, Normal Color Assessment and Plan - Assessment and Plan (Free Text) Assessment: 77 yo male with BPH, neurogenic bladder, and Lung cancer with metastatic disease to bone found to have Pseudomonas in urine cultures that is highly resistant to antibiotic therapy. The patient was started on Cefepime and Vancomycin for antibiotic care. Initial leukocytosis now leukopenia. Procalcitonin was low at 0.10. Adequate renal function. CT scan had demonstrated left upper and left lower lobe infiltrates. Antibiotics of Cefepime should be changed to Meropenem due to the high JAMARCUS values seen for most of the "sensitive" antibiotics. Patient is severely depressed. Supportive care. On Meropenem now... can use Invanz if discharging to home at 1gm daily for 5-7 days on discharge from hospital. Thank you for allowing me to participate in the care of the patient, we will follow with you.
[2018-09-29] MEDS: Lactated Ringer's 1,000 ML IV SCH (13:56)
--- NOTE | 2018-09-29 14:44 | CON ---
DATE: 09/29/2018 HISTORY OF PRESENT ILLNESS: This is a 78-year-old man with lung cancer widely metastatic to the bones, presently receiving antibiotics for his pseudomonas urinary tract infection and infiltrates in his lung. PHYSICAL EXAMINATION: SKIN: No petechiae. No bruises. HEENT: Anicteric. NODES: None palpable in the axillary, cervical, supraclavicular, or inguinal regions. LUNGS: Some scattered wheezing, but he is able to lie flat in bed. He is relatively comfortable. HEART: S1 and S2. ABDOMEN: No liver, no spleen, no tenderness. EXTREMITIES: No edema. [employer]PING LEAD PERSON: Plantars are downgoing bilaterally. ASSESSMENT AND PLAN: The patient knows who I am. He seems to be pretty comfortable. He said that his pain is under control and that his breathing is reasonable. I spoke with the nurse today about his eating. I promised that he keeps some of the food in his mouth, in his cheeks an they recommended that he goes to a pureed diet. So, I told them to do that. I spoke with one of the daughters; I believer there are four daughters, Sole used to work for me as a nurse; she is an oncology nurse in [place]. She is supposed to be coming back today or this weekend. I spoke with one of the other daughters yesterday and I explained that he is elderly with incurable, widely metastatic lung cancer and several things going against him including the infection, pseudomonas urinary tract infection and overall condition. He is not eating, but I said to her the issue is not putting in a feeding tube or doing TPN, we tried that in the past over the years. These are not recommended as he can get worsened infections, specifically fungal infections, but more pointedly the reason why he is not eating is because of the cancer, it has to be under control. We gave him his first dose of chemotherapy at half strength. His white count dropped down to 1.5. I started him on Neupogen yesterday. His white count today is 3.1. The platelet count is relatively stable at about the low 50. So, we are just going to observe him now and of course hold off his chemotherapy second dose today. So, at this point he is being treated with the antibiotics with poor prognosis. Jax MD [facility] # [id number]
[2018-09-29 17:43] VITALS: BP 139/69; PULSE 109
--- NOTE | 2018-09-29 18:11 | CP.PCM.DIS ---
<Amita Zaman - Last Filed: 09/29/18 18:11> Provider - Provider Date of Admission: 09/24/18 14:16 Attending physician: Mckayla Anderson MD Consults: 09/24/18 14:13 Physician Consult Stat Comment: Consulting Provider: Jax Rodriguez Consulting Physician: Jax Rodriguez Reason for Consult: infection aftemr chemo 09/24/18 15:50 Palliative Care Consult Routine Comment: Consulting Provider: Zena Crockett Physician Instructions: Reason For Exam: Lung CA with mets 09/24/18 23:21 Nursing Referral for Wound Care Routine Comment: Physician Instructions: Reason For Exam: B/L buttock wound 09/25/18 10:53 Physician Consult Routine Comment: Consulting Provider: Marlen Alanis Consulting Physician: Marlen Alanis Reason for Consult: eval depression 09/25/18 11:03 Consult [Physician Consult] Routine Comment: Consulting Provider: Neal Llanos Consulting Physician: Neal Llanos Reason for Consult: tachycardia 09/27/18 08:18 Infectious Disease Consult Routine Comment: Consulting Provider: Naveen Phoenix Consulting Physician: Naveen Phoenix Reason for Consult: pneumonia, UTI. Hx of lung cancer Time Spent in preparation of Discharge (in minutes): 35 Hospital Course - Lab Results Lab Results: Micro Results 09/24/18 13:30 Blood Blood Culture - Final NO GROWTH AFTER 5 DAYS 09/24/18 13:30 Blood Gram Stain - Final TEST NOT PERFORMED 09/24/18 13:00 Blood Blood Culture - Final NO GROWTH AFTER 5 DAYS 09/24/18 13:00 Blood Gram Stain - Final TEST NOT PERFORMED 09/24/18 13:57 Urine,Catheterized Urine Culture - Final Pseudomonas Aeruginosa Most Recent Lab Values WBC 3.1 10^3/uL (4.5-11.0) L D 09/29/18 06:00 RBC 3.67 10^6/uL (3.5-6.1) 09/29/18 06:00 Hgb 11.0 g/dL (14.0-18.0) L 09/29/18 06:00 Hct 33.0 % (42.0-52.0) L 09/29/18 06:00 MCV 89.9 fl (80.0-105.0) 09/29/18 06:00 MCH 30.0 pg (25.0-35.0) 09/29/18 06:00 MCHC 33.3 g/dl (31.0-37.0) 09/29/18 06:00 RDW 14.3 % (11.5-14.5) 09/29/18 06:00 Plt Count 61 10^3/uL (120.0-450.0) L 09/29/18 06:00 MPV 10.3 fl (7.0-11.0) 09/29/18 06:00 Gran % 85.9 % (50.0-68.0) H 09/29/18 06:00 Lymph % (Auto) 9.3 % (22.0-35.0) L 09/29/18 06:00 [place] % (Auto) 4.8 % (1.0-6.0) 09/29/18 06:00 Eos % (Auto) 0.0 % (1.5-5.0) L 09/29/18 06:00 Baso % (Auto) 0.0 % (0.0-3.0) 09/29/18 06:00 Gran # 2.67 (1.4-6.5) 09/29/18 06:00 Lymph # (Auto) 0.3 (1.2-3.4) L 09/29/18 06:00 [place] # (Auto) 0.2 (0.1-0.6) 09/29/18 06:00 Eos # (Auto) 0.0 (0.0-0.7) 09/29/18 06:00 Baso # (Auto) 0.00 K/mm3 (0.0-2.0) 09/29/18 06:00 Neutrophils % (Manual) 77 % (50.0-70.0) H 09/28/18 06:20 Lymphocytes % (Manual) 21 % (22.0-35.0) L 09/28/18 06:20 Monocytes % (Manual) 2 % (1.0-6.0) 09/28/18 06:20 Platelet Evaluation Low (NORMAL) 09/28/18 06:20 PT 11.5 SECONDS (9.4-12.5) 09/24/18 13:30 INR 1.01 09/24/18 13:30 APTT 23.9 Seconds (25.1-36.5) L 09/24/18 13:30 pO2 68 mm/Hg (30-55) H 09/24/18 13:30 VBG pH 7.46 (7.32-7.43) H 09/24/18 13:30 VBG pCO2 43.0 (40-60) 09/24/18 13:30 VBG HCO3 30.6 mmol/l (21-28) H 09/24/18 13:30 VBG Total CO2 31.9 mmol.L (22-28) H 09/24/18 13:30 VBG O2 Sat (Calc) 95.8 % (40-65) H 09/24/18 13:30 VBG Base Excess 6.0 mmol/L (0.0-2.0) H 09/24/18 13:30 VBG Potassium 4.0 mmol/L (3.6-5.2) 09/24/18 13:30 Sodium 148.0 mmol/L (132-148) 09/24/18 13:30 Chloride 112.0 mmol/L (98-107) H 09/24/18 13:30 Glucose 97 mg/dl (75-110) 09/24/18 13:30 Lactate 1.5 mmol/L (0.7-2.1) 09/24/18 13:30 FiO2 21.0 % 09/24/18 13:30 Sodium 137 mmol/L (132-148) 09/29/18 06:00 Potassium 3.9 mmol/L (3.6-5.0) 09/29/18 06:00 Chloride 107 mmol/L (98-107) 09/29/18 06:00 Carbon Dioxide 27 mmol/L (21-33) 09/29/18 06:00 Anion Gap 8 (10-20) L 09/29/18 06:00 BUN 21 mg/dL (7-21) 09/29/18 06:00 Creatinine 0.5 mg/dl (0.8-1.5) L 09/29/18 06:00 Est GFR ( Amer) > 60 09/29/18 06:00 Est GFR (Non-Af Amer) > 60 09/29/18 06:00 Random Glucose 119 mg/dL (70-110) H 09/29/18 06:00 Hemoglobin A1c 6.5 % (4.2-6.5) 09/24/18 13:30 Calcium 7.4 mg/dL (8.4-10.5) L 09/29/18 06:00 Phosphorus 1.8 mg/dL (2.5-4.5) L 09/29/18 06:00 Magnesium 2.0 mg/dL (1.7-2.2) 09/29/18 06:00 Total Bilirubin 0.6 mg/dL (0.2-1.3) 09/29/18 06:00 AST 30 U/L (17-59) 09/29/18 06:00 ALT 36 U/L (7-56) 09/29/18 06:00 Alkaline Phosphatase 111 U/L (38-126) 09/29/18 06:00 Troponin I 0.04 ng/mL 09/25/18 02:05 NT-Pro-B Natriuret Pep 686 pg/mL (0-450) H 09/24/18 13:30 Total Protein 5.5 g/dL (5.8-8.3) L 09/29/18 06:00 Albumin 2.9 g/dL (3.0-4.8) L 09/29/18 06:00 Globulin 2.6 gm/dL 09/29/18 06:00 Albumin/Globulin Ratio 1.1 (1.1-1.8) 09/29/18 06:00 Triglycerides 382 mg/dL (35-160) H 09/24/18 13:30 Cholesterol 268 mg/dL (130-200) H 09/24/18 13:30 LDL Cholesterol Direct 138 mg/dL (0-129) H 09/24/18 13:30 HDL Cholesterol 54 mg/dL (29-60) 09/24/18 13:30 Procalcitonin 0.10 NG/ML (0.19-0.49) L 09/24/18 13:30 TSH 3rd Generation 0.81 mIU/mL (0.46-4.68) 09/25/18 13:17 Venous Blood Potassium 4.0 mmol/L (3.6-5.2) 09/24/18 13:30 Urine Color Yellow (YELLOW) 09/24/18 13:57 Urine Appearance Clear (CLEAR) 09/24/18 13:57 Urine pH 6.0 (4.7-8.0) 09/24/18 13:57 Ur Specific [place] 1.015 (1.005-1.035) 09/24/18 13:57 Urine Protein Negative mg/dL (<30 mg/dL) 09/24/18 13:57 Urine Glucose (UA) Negative mg/dL (NEGATIVE) 09/24/18 13:57 Urine Ketones Negative mg/dL (NEGATIVE) 09/24/18 13:57 Urine Blood Small (NEGATIVE) H 09/24/18 13:57 Urine Nitrate Positive (NEGATIVE) H 09/24/18 13:57 Urine Bilirubin Small (NEGATIVE) H 09/24/18 13:57 Urine Urobilinogen 0.2 E.U./dL (<1 E.U./dL) 09/24/18 13:57 Ur Leukocyte Esterase Small Amita/uL (NEGATIVE) H 09/24/18 13:57 Urine RBC 0 - 2 /hpf (0-2) 09/24/18 13:57 Urine WBC 20 - 25 /hpf (0-6) 09/24/18 13:57 Ur Epithelial Cells 0 - 2 /hpf (0-5) 09/24/18 13:57 Urine Bacteria Large (NEG) 09/24/18 13:57 - Hospital Course Hospital Course: Upon admission, 78 [id number] with a past medical history of 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 Patient reports his family is concerned because he has a lack of appetite and has not taken his medications because he is upset from his cancer. Patient denies any pain to his back, limbs and head at this time. Patient denies any fevers, chills, dizziness, chest pain, abdominal pain, nausea, vomiting, and diarrhea. Patient states he received his diagnosis of Lung CA a few weeks ago, which was confirmed with biopsy, and subsequently received a port. Patient reports he uses a urinary catheter at home due to his history of neurogenic bladder which came about after infection a few years ago. During hospital course, CXR 09/24 shows small L pleural effusion with consolidation, L lung spiculated mass and chest CT 09/24 shows left upper lobe mass, similar to prior study. Left upper lobe and lower lobe infiltrates. Moderate left plural effusion. T12 osseous sclerosis suspicious for mets. Patient was afebrile and procal is unremarkable. Patient started on cefipime and transitioned to merrem once UTI culture revealed pseudomonas. for pain, patient treated with percocet, lyrica and fentanyl. Patient noted to have dropping WBC from initial 12.5 down to 1.4 on 09/28. He was given neupogen with increase of WBC to 3.1 the following day. He was evaluated by psychiatry for possible depression and desicion was made against using medical psych therapy at this time. He was noted to have taccycardia initially with HR in the 120 while home lopressor was continued and resolved during the hospital course. Trops x3 were negative, TSH WNL. He was noted to have difficulty with appetite eating minimally. He was started on ensure with some improvement in eating tolerance. On day of discharg, we had extensive conversation with and two daughters about goals of care and family insisted on discharging patient home as apposed to [facility] and stated they will closely monitor patient. Patient and patient's family agreed with discharge and all questions were answered. Discharge Exam - Additional Findings Additional findings: Head Exam Head Exam: NORMAL INSPECTION, normocephalic - Eye Exam Eye Exam: EOMI, PERRLA - ENT Exam ENT Exam: Mucous Membranes Moist, Oral thrush present - improved from prior - Respiratory Exam Respiratory Exam: Clear to PA & Lateral, NORMAL BREATHING PATTERN, no wheezing or respiratory distress, rhonchi - Cardiovascular Exam Cardiovascular Exam: REGULAR RHYTHM, S1 and S2 present - GI/Abdominal Exam GI & Abdominal Exam: Soft. absent: Distended, Guarding, Tenderness - Guzman in place draining yellow fluid, no blood - Extremities Exam Extremities exam: normal capillary refill, pedal pulses present - Neurological Exam Neurological exam: Alert, Oriented x3 - Psychiatric Exam Psychiatric exam: Normal Affect, Normal Mood - Skin Skin Exam: Dry, Warm Discharge Plan - Discharge Medications Prescriptions: Albuterol/Ipratropium [Duoneb 3 mg/0.5 mg (3 ml) UD] 3 ml IH [id number] 30 Days #120 vial Dexamethasone [Decadron] See Taper PO QID #56 tab fentaNYL 25 mcg/hr [Duragesic Patch 25 mcg/hr] 1 patch TD Q72H #5 patch - Follow Up Plan Condition: GUARDED Disposition: HOME/ ROUTINE Instructions: Pleural Effusion (DC), Generalized Weakness (DC) Additional Instructions: Please follow up with your primary care doctor, Dr. Day within 3-5 days of discharge. Please follow up with your oncologist, Dr. Rodriguez within 3-5 days of discharge. Please follow up with your neurologist, Dr. Piedra within 305 days of discharge. As per our discussion, you do not need any refills for your medications at this time. Please continue your home medications. Your decadron dose will be tapered down. 4mg twice daily for 3 days, then 4mg daily for 3 days, then 2mg daily for 3 days, then stop. Please follow the instructions provided on the medication. You will be started on an antibiotic (Invanz) for 6 days. Please return to the ED for any new or worsening symptoms. Referrals: Laz Piedra MD [Staff Provider] - Jax Rodriguez MD [Medical Doctor] - <Mckayla Anderson - Last Filed: 09/30/18 07:53> Provider - Provider Date of Admission: 09/24/18 14:16 Attending physician: Mckayla Anderson MD Consults: 09/24/18 14:13 Physician Consult Stat Comment: Consulting Provider: Jax Rodriguez Consulting Physician: Jax Rodriguez Reason for Consult: infection aftemr chemo 09/24/18 15:50 Palliative Care Consult Routine Comment: Consulting Provider: Zena Crockett Physician Instructions: Reason For Exam: Lung CA with mets 09/24/18 23:21 Nursing Referral for Wound Care Routine Comment: Physician Instructions: Reason For Exam: B/L buttock wound 09/25/18 10:53 Physician Consult Routine Comment: Consulting Provider: Marlen Alanis Consulting Physician: Marlen Alanis Reason for Consult: eval depression 09/25/18 11:03 Consult [Physician Consult] Routine Comment: Consulting Provider: Neal Llanos Consulting Physician: Neal Llanos Reason for Consult: tachycardia 09/27/18 08:18 Infectious Disease Consult Routine Comment: Consulting Provider: Naveen Phoenix Consulting Physician: Naveen Phoenix Reason for Consult: pneumonia, UTI. Hx of lung cancer Hospital Course - Lab Results Lab Results: Micro Results 09/24/18 13:30 Blood Blood Culture - Final NO GROWTH AFTER 5 DAYS 09/24/18 13:30 Blood Gram Stain - Final TEST NOT PERFORMED 09/24/18 13:00 Blood Blood Culture - Final NO GROWTH AFTER 5 DAYS 09/24/18 13:00 Blood Gram Stain - Final TEST NOT PERFORMED 09/24/18 13:57 Urine,Catheterized Urine Culture - Final Pseudomonas Aeruginosa Most Recent Lab Values WBC 3.1 10^3/uL (4.5-11.0) L D 09/29/18 06:00 RBC 3.67 10^6/uL (3.5-6.1) 09/29/18 06:00 Hgb 11.0 g/dL (14.0-18.0) L 09/29/18 06:00 Hct 33.0 % (42.0-52.0) L 09/29/18 06:00 MCV 89.9 fl (80.0-105.0) 09/29/18 06:00 MCH 30.0 pg (25.0-35.0) 09/29/18 06:00 MCHC 33.3 g/dl (31.0-37.0) 09/29/18 06:00 RDW 14.3 % (11.5-14.5) 09/29/18 06:00 Plt Count 61 10^3/uL (120.0-450.0) L 09/29/18 06:00 MPV 10.3 fl (7.0-11.0) 09/29/18 06:00 Gran % 85.9 % (50.0-68.0) H 09/29/18 06:00 Lymph % (Auto) 9.3 % (22.0-35.0) L 09/29/18 06:00 [place] % (Auto) 4.8 % (1.0-6.0) 09/29/18 06:00 Eos % (Auto) 0.0 % (1.5-5.0) L 09/29/18 06:00 Baso % (Auto) 0.0 % (0.0-3.0) 09/29/18 06:00 Gran # 2.67 (1.4-6.5) 09/29/18 06:00 Lymph # (Auto) 0.3 (1.2-3.4) L 09/29/18 06:00 [place] # (Auto) 0.2 (0.1-0.6) 09/29/18 06:00 Eos # (Auto) 0.0 (0.0-0.7) 09/29/18 06:00 Baso # (Auto) 0.00 K/mm3 (0.0-2.0) 09/29/18 06:00 Neutrophils % (Manual) 77 % (50.0-70.0) H 09/28/18 06:20 Lymphocytes % (Manual) 21 % (22.0-35.0) L 09/28/18 06:20 Monocytes % (Manual) 2 % (1.0-6.0) 09/28/18 06:20 Platelet Evaluation Low (NORMAL) 09/28/18 06:20 PT 11.5 SECONDS (9.4-12.5) 09/24/18 13:30 INR 1.01 09/24/18 13:30 APTT 23.9 Seconds (25.1-36.5) L 09/24/18 13:30 pO2 68 mm/Hg (30-55) H 09/24/18 13:30 VBG pH 7.46 (7.32-7.43) H 09/24/18 13:30 VBG pCO2 43.0 (40-60) 09/24/18 13:30 VBG HCO3 30.6 mmol/l (21-28) H 09/24/18 13:30 VBG Total CO2 31.9 mmol.L (22-28) H 09/24/18 13:30 VBG O2 Sat (Calc) 95.8 % (40-65) H 09/24/18 13:30 VBG Base Excess 6.0 mmol/L (0.0-2.0) H 09/24/18 13:30 VBG Potassium 4.0 mmol/L (3.6-5.2) 09/24/18 13:30 Sodium 148.0 mmol/L (132-148) 09/24/18 13:30 Chloride 112.0 mmol/L (98-107) H 09/24/18 13:30 Glucose 97 mg/dl (75-110) 09/24/18 13:30 Lactate 1.5 mmol/L (0.7-2.1) 09/24/18 13:30 FiO2 21.0 % 09/24/18 13:30 Sodium 137 mmol/L (132-148) 09/29/18 06:00 Potassium 3.9 mmol/L (3.6-5.0) 09/29/18 06:00 Chloride 107 mmol/L (98-107) 09/29/18 06:00 Carbon Dioxide 27 mmol/L (21-33) 09/29/18 06:00 Anion Gap 8 (10-20) L 09/29/18 06:00 BUN 21 mg/dL (7-21) 09/29/18 06:00 Creatinine 0.5 mg/dl (0.8-1.5) L 09/29/18 06:00 Est GFR ( Amer) > 60 09/29/18 06:00 Est GFR (Non-Af Amer) > 60 09/29/18 06:00 Random Glucose 119 mg/dL (70-110) H 09/29/18 06:00 Hemoglobin A1c 6.5 % (4.2-6.5) 09/24/18 13:30 Calcium 7.4 mg/dL (8.4-10.5) L 09/29/18 06:00 Phosphorus 1.8 mg/dL (2.5-4.5) L 09/29/18 06:00 Magnesium 2.0 mg/dL (1.7-2.2) 09/29/18 06:00 Total Bilirubin 0.6 mg/dL (0.2-1.3) 09/29/18 06:00 AST 30 U/L (17-59) 09/29/18 06:00 ALT 36 U/L (7-56) 09/29/18 06:00 Alkaline Phosphatase 111 U/L (38-126) 09/29/18 06:00 Troponin I 0.04 ng/mL 09/25/18 02:05 NT-Pro-B Natriuret Pep 686 pg/mL (0-450) H 09/24/18 13:30 Total Protein 5.5 g/dL (5.8-8.3) L 09/29/18 06:00 Albumin 2.9 g/dL (3.0-4.8) L 09/29/18 06:00 Globulin 2.6 gm/dL 09/29/18 06:00 Albumin/Globulin Ratio 1.1 (1.1-1.8) 09/29/18 06:00 Triglycerides 382 mg/dL (35-160) H 09/24/18 13:30 Cholesterol 268 mg/dL (130-200) H 09/24/18 13:30 LDL Cholesterol Direct 138 mg/dL (0-129) H 09/24/18 13:30 HDL Cholesterol 54 mg/dL (29-60) 09/24/18 13:30 Procalcitonin 0.10 NG/ML (0.19-0.49) L 09/24/18 13:30 TSH 3rd Generation 0.81 mIU/mL (0.46-4.68) 09/25/18 13:17 Venous Blood Potassium 4.0 mmol/L (3.6-5.2) 09/24/18 13:30 Urine Color Yellow (YELLOW) 09/24/18 13:57 Urine Appearance Clear (CLEAR) 09/24/18 13:57 Urine pH 6.0 (4.7-8.0) 09/24/18 13:57 Ur Specific [place] 1.015 (1.005-1.035) 09/24/18 13:57 Urine Protein Negative mg/dL (<30 mg/dL) 09/24/18 13:57 Urine Glucose (UA) Negative mg/dL (NEGATIVE) 09/24/18 13:57 Urine Ketones Negative mg/dL (NEGATIVE) 09/24/18 13:57 Urine Blood Small (NEGATIVE) H 09/24/18 13:57 Urine Nitrate Positive (NEGATIVE) H 09/24/18 13:57 Urine Bilirubin Small (NEGATIVE) H 09/24/18 13:57 Urine Urobilinogen 0.2 E.U./dL (<1 E.U./dL) 09/24/18 13:57 Ur Leukocyte Esterase Small Amita/uL (NEGATIVE) H 09/24/18 13:57 Urine RBC 0 - 2 /hpf (0-2) 09/24/18 13:57 Urine WBC 20 - 25 /hpf (0-6) 09/24/18 13:57 Ur Epithelial Cells 0 - 2 /hpf (0-5) 09/24/18 13:57 Urine Bacteria Large (NEG) 09/24/18 13:57 Attending/Attestation - Attestation I have personally seen and examined this patient.: Yes I have fully participated in the care of the patient.: Yes I have reviewed all pertinent clinical information, including history, physical exam and plan: Yes Notes (Text): 09/29/18 78 year old male with past medical history of metastatic lung cancer s/p first round of chemotherapy last weeks who presented with weakness and loss of appetite. He was found to have HCAP pneumonia, UTI and oral thrush. He was started on iv antibiotics and nystatin. He was seen by ID and hematology/oncology. He received one dose of filgastrim yesterday for neutrop enia which improved today. 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 He was also seen by psychiatrist for evaluation for possible depression. Patient was seen by PT who innitially recommended [facility]. However family requested patient to come home with family support. PT follow up was appreciated who recommended home with services. Patient will be discharged home with home iv antibiotics. Home services per supportive employment case manager. Follow up with pmd, oncologist and neurologist. and daughter were at bedside this morning and questions were answered. Mckayla Anderson MD Hospitalist.
== END 2018-09-29 21:25 | disposition home health service (06) | DRG 194 ==
LOC: ED 12:22 → ERH 14:16 → 3RSO 20:05
PROVIDERS: ADMIT Internal Medicine; ATTEND Internal Medicine
DX: J18.9 Pneumonia, unspecified organism (principal); J44.0 Chronic obstructive pulmonary disease with (acute) lower respiratory infection; C34.12 Malignant neoplasm of upper lobe, left bronchus or lung; C79.51 Secondary malignant neoplasm of bone; J90 Pleural effusion, not elsewhere classified; B37.0 Candidal stomatitis; N39.0 Urinary tract infection, site not specified; B96.5 Pseudomonas (aeruginosa) (mallei) (pseudomallei) as the cause of diseases classified elsewhere; I12.9 Hypertensive chronic kidney disease with stage 1 through stage 4 chronic kidney disease, or unspecified chronic kidney disease; E11.22 Type 2 diabetes mellitus with diabetic chronic kidney disease; N18.9 Chronic kidney disease, unspecified; D69.6 Thrombocytopenia, unspecified; D70.9 Neutropenia, unspecified; E86.0 Dehydration; F06.30 Mood disorder due to known physiological condition, unspecified; F43.23 Adjustment disorder with mixed anxiety and depressed mood; N40.1 Benign prostatic hyperplasia with lower urinary tract symptoms; R33.8 Other retention of urine; N31.9 Neuromuscular dysfunction of bladder, unspecified; F17.200 Nicotine dependence, unspecified, uncomplicated; Y95 Nosocomial condition; Z91.14 Patient's other noncompliance with medication regimen